=== PATIENT | female | born 1940 | race African-American/Black ===

== ENCOUNTER 2016-10-27 09:59 | Inpatient (IN) | payer MEDICARE, MEDICAID ==
[2016-10-27] MEDS ORDERED: NORMAL SALINE 1000 ML 1,000 ML IV ONE ×2 (10:10→11:15)
[2016-10-27 10:38] LABS: ABSOLUTE BASOPHILS # (AUTO) 0.1 10^3/uL (0.0-0.2); ABSOLUTE EOSINOPHILS # (AUTO) 0.1 10^3/uL (0.0-0.6); ABSOLUTE LYMPHOCYTES (AUTO) 1.6 10^3/uL (0.5-4.7); ABSOLUTE MONOCYTES (AUTO) 0.6 10^3/uL (0.1-1.4); ABSOLUTE NEUT (AUTO) 6.3 10^3/uL (1.7-8.2); BASOPHILS % (AUTO) 0.7 % (0-2); EOSINOPHILS % (AUTO) 1.7 % (0-6); HEMATOCRIT 37.9 % (36.0-47.0); HEMOGLOBIN 11.3 g/dL (12.0-15.5); MEAN CORPUSCULAR HEMOGLOBIN 27.4 pg (27.0-33.4); MEAN CORPUSCULAR HGB CONC 29.9 g/dL (32.0-36.0); MEAN CORPUSCULAR VOLUME 92 fl (80-97); MONOCYTES % (AUTO) 6.5 % (3-13); RED BLOOD COUNT 4.13 10^6/uL (3.72-5.28); RED CELL DISTRIBUTION WIDTH 17.9 % (11.5-14.0); SEGMENTED NEUTROPHILS % (AUTO) 73.1 % (42-78); VENOUS BLOOD BASE EXCESS 2.7 mmol/L; VENOUS BLOOD PCO2 28.5 mmHg (35-63); VENOUS BLOOD PH 7.54 (7.30-7.42); WHITE BLOOD COUNT 8.7 10^3/uL (4.0-10.5)
--- NOTE | 2016-10-27 10:42 | ER Document Report ---
ED General - General Stated Complaint: CONGESTION TRAVEL OUTSIDE OF THE [place] IN LAST 30 DAYS: No - HPI Patient complains to provider of: fever tachypnea Notes: Patient coming in for evaluation of fever tachypnea and congestion. According to EMS patient had been congested for approximately 4-5 days. [facility] noted a low-grade fever temperature of 100 prior to arrival patient was given Tylenol to take 2. Of note patient is a DNR/DNI. Patient is not accompanied by family only EMS history of present illness is limited due to these Patient with a history of dementia nonverbal patient does have a low blood pressure and tachycardia but is tachypnea. - Related Data Allergies/Adverse Reactions: No Known Allergies Allergy (Verified 07/28/16 19:26) Home Medications: Current Home Medications Albuterol Sulfate [Ventolin HFA MDI 18 GM] 2 puff IH Q4HP PRN 10/27/16 [History] Carvedilol [Coreg 25 mg Tablet] 25 mg PEG Q12 10/27/16 [History] Folic Acid [Folvite 1 mg Tablet] 1 mg PEG DAILY 10/27/16 [History] Ipratropium/Albuterol Sulfate [Duoneb 3 ml Ampul] 1 vial IH RTQ4HP PRN 10/27/16 [History] Mirtazapine [Remeron 15 mg Tablet] 15 mg PEG QHS 10/27/16 [History] Risperidone 2 mg PEG DAILY 10/27/16 [History] Past Medical History - Social History Smoking Status: Unknown if Ever Smoked Family History: None, Reviewed & Not Pertinent - Past Medical History Cardiac Medical History: Reports: Hx Hypertension Pulmonary Medical History: Reports: Hx COPD Neurological Medical History: Denies: Hx Seizures Musculoskeltal Medical History: Reports Hx Arthritis - OA Psychiatric Medical History: Reports: Hx Bipolar Disorder, Hx Dementia Denies: Hx Depression Past Surgical History: Reports: Hx Abdominal Surgery - PEG tube. Denies: Hx Hysterectomy - Immunizations Immunizations up to date: Yes Hx Diphtheria, Pertussis, Tetanus Vaccination: No Hx Pneumococcal Vaccination: 01/21/14 Review of Systems - Review of Systems -: Yes ROS unobtainable due to patient's medical condition - Dementia Physical Exam - Vital signs Vitals: Resp Pulse Ox 42 H 96 10/27/16 10:09 10/27/16 10:09 Interpretation: Tachypneic, Febrile - General General appearance: Appears well, Alert - HEENT Head: Normocephalic, Atraumatic Eyes: Normal Pupils: PERRL - Respiratory Respiratory status: Tachypnea Chest status: Nontender Breath sounds: Normal Chest palpation: Normal - Cardiovascular Rhythm: Regular Heart sounds: Normal auscultation Murmur: No - Abdominal Inspection: Normal Distension: No distension Bowel sounds: Normal Tenderness: Nontender Organomegaly: No organomegaly - Back Back: Normal, Nontender - Extremities General upper extremity: Normal inspection, Nontender, Normal color, Normal ROM , Normal temperature General lower extremity: Normal inspection, Nontender, Normal color, Normal ROM , Normal temperature, Normal weight bearing. No: Benny's sign - Neurological Neuro grossly intact: Yes - Psychological Associated symptoms: Normal affect, Normal mood - Skin Skin Temperature: Warm Skin Moisture: Dry Skin Color: Normal Course - Re-evaluation Re-evalutation: 10/27/16 13:24 Patient although tachypnea shows no signs of respiratory distress. VBG shows signs consistent with hyperventilation. Other than fever and UTI no other critical etiology seen. Patient is dehydrated with hypernatremia again although not as severe as last admission. Discussed with PCP Dr. Singer. Will admit to the medical floor for rehydration IV antibiotics. Cultures performed and sent. - Vital Signs Vital signs: Temp Pulse Resp BP Pulse Ox 100.5 F H 35 H 93/61 L 99 10/27/16 10:30 10/27/16 12:01 10/27/16 12:01 10/27/16 11:01 - Laboratory Result Diagrams: 10/27/16 10:20 10/27/16 10:20 Laboratory results interpreted by me: 10/27/16 10/27/16 10/27/16 10:20 10:20 10:20 Hgb 11.3 L MCHC 29.9 L RDW 17.9 H VBG pH 7.54 H VBG pCO2 28.5 L Sodium 157.1 H Chloride 119 H BUN 30 H Glucose 111 H Alkaline Phosphatase 147 H Urine Blood Ur Leukocyte Esterase Urine Ascorbic Acid 10/27/16 10:52 Hgb MCHC RDW VBG pH VBG pCO2 Sodium Chloride BUN Glucose Alkaline Phosphatase Urine Blood SMALL H Ur Leukocyte Esterase LARGE H Urine Ascorbic Acid 40 H Critical Care Note - Critical Care Note Total time excluding time spent on procedures (mins): 35 Comments: Multiple evaluations for tachypnea and concerning laboratory values. Discharge - Discharge Clinical Impression: Hypernatremia, Dehydration, SIRS (systemic inflammatory response syndrome), DNR (do not resuscitate) Urinary tract infection Qualifiers: Urinary tract infection type: acute cystitis Hematuria presence: without hematuria Qualified Code(s): N30.00 - Acute cystitis without hematuria Dementia Qualifiers: Dementia type: unspecified type Dementia behavioral disturbance: with behavioral disturbance Qualified Code(s): F03.91 - Unspecified dementia with behavioral disturbance Fever Qualifiers: Fever type: unspecified Qualified Code(s): R50.9 - Fever, unspecified Condition: Fair Disposition: ADMITTED INPATIENT [facility] Unit Admitted: Medical Floor
[2016-10-27 10:43] LABS: PROTHROMBIN TIME 14.4 SEC (11.4-15.4)
[2016-10-27 10:59] LABS: ALANINE AMINOTRANSFERASE 31 U/L (9-52); ALBUMIN 3.5 g/dL (3.5-5.0); ALKALINE PHOSPHATASE 147 U/L (38-126); ANION GAP 12 (5-19); ASPARTATE AMINO TRANSFERASE 31 U/L (14-36); BILIRUBIN,TOTAL 0.5 mg/dL (0.2-1.3); BLOOD UREA NITROGEN 30 mg/dL (7-20); CALCIUM 9.3 mg/dL (8.4-10.2); CARBON DIOXIDE 26 mmol/L (22-30); CHLORIDE 119 mmol/L (98-107); GLUCOSE 111 mg/dL (75-110); POTASSIUM 4.4 mmol/L (3.6-5.0); SODIUM 157.1 mmol/L (137-145); TOTAL PROTEIN 7.3 g/dL (6.3-8.2)
[2016-10-27 11:22] LABS: APPEARANCE,URINE CLOUDY; BILIRUBIN,URINE NEGATIVE (NEGATIVE); GLUCOSE, URINE NEGATIVE (NEGATIVE); KETONES,URINE NEGATIVE (NEGATIVE); LEUKOCYTE ESTERASE,URINE LARGE (NEGATIVE); NITRITE,URINE NEGATIVE (NEGATIVE); PROTEIN,URINE NEGATIVE (NEGATIVE); URINE SPECIFIC GRAVITY 1.016; UROBILINOGEN,URINE NEGATIVE mg/dL (<2.0)
[2016-10-27] MEDS ORDERED: ERTAPENEM SODIUM INJ 1 GM VIAL IV ONE (11:25)
[2016-10-27] MEDS ORDERED: ALBUTEROL SULFATE HFA (90 MCG/PUFF) 8 GM MDI (1 MDI/ER DISP) IH PRN (17:55)
[2016-10-27] MEDS ORDERED: FOLIC ACID 1 MG TABLET PEG ONE (18:15)
[2016-10-27] MEDS ORDERED: RISPERIDONE 1 MG TABLET PEG ONE (18:15)
[2016-10-27] MEDS ORDERED: MIRTAZAPINE 15 MG TABLET PEG ONE (18:15)
[2016-10-27 18:39] LABS: HEMATOCRIT 32.5 % (36.0-47.0); HEMOGLOBIN 10.4 g/dL (12.0-15.5); HGB HCT DIFFERENCE -1.3; MEAN CORPUSCULAR HEMOGLOBIN 28.9 pg (27.0-33.4); MEAN CORPUSCULAR HGB CONC 32.1 g/dL (32.0-36.0); MEAN CORPUSCULAR VOLUME 90 fl (80-97); RED BLOOD COUNT 3.61 10^6/uL (3.72-5.28); RED CELL DISTRIBUTION WIDTH 17.6 % (11.5-14.0); WHITE BLOOD COUNT 7.7 10^3/uL (4.0-10.5)
[2016-10-27 18:57] LABS: CREATININE RESULT 0.68 mg/dL (0.52-1.25)
--- NOTE | 2016-10-27 21:36 | EKG REPORT ---
SEVERITY:- ABNORMAL ECG - SINUS RHYTHM LEFT ANTERIOR FASCICULAR BLOCK ABNORMAL T, CONSIDER ISCHEMIA, DIFFUSE LEADS : Confirmed by: Jessica Wagoner 27-Oct-2016 21:35:48
[2016-10-27] MEDS: MIRTAZAPINE 15 MG TABLET PEG SCH (22:21)
[2016-10-27] MEDS: CARVEDILOL 12.5 MG TABLET PEG SCH (22:37)
[2016-10-28] MEDS ORDERED: ALBUTEROL SULFATE HFA (90 MCG/PUFF) 200 PUFF/8.5 GM MDI IH PRN (08:06)
[2016-10-28] MEDS: ENOXAPARIN SODIUM INJ 40 MG/0.4 ML DISP.SYRIN SUBCUT SCH (08:43)
[2016-10-28] MEDS: FOLIC ACID 1 MG TABLET PEG SCH (10:26)
[2016-10-28] MEDS: RISPERIDONE 1 MG TABLET PEG SCH (10:26)
[2016-10-28] MEDS: ERTAPENEM SODIUM 1 GM in NORMAL SALINE 50 ML IV SCH (10:27)
[2016-10-28] MEDS: CARVEDILOL 12.5 MG TABLET PEG SCH ×2 (10:28→23:05)
[2016-10-28] MEDS: DEXTROSE 5%-WATER 1000 ML 1,000 ML IV PRN (18:18)
--- NOTE | 2016-10-28 20:55 | PDOC H&P ---
History of Present Illness Admission Date/PCP: 10/27/16 19:19 KAY GATES, History of Present Illness: URSULA RAMOS is a 76 year old female, she has advanced dementia, non-verbal with contracted extremities. [facility] was [facility] because of suspicion for infection, she had tachypnea, fever in emergency room she was evaluated, she was found to have hypernatremia, this serum sodium was 157 and also found to have UTI with pneumonia. Past Medical History Cardiac Medical History: Reports: Hypertension Pulmonary Medical History: Reports: Chronic Obstructive Pulmonary Disease (COPD) Musculoskeltal Medical History: Reports: Arthritis - OA Psychiatric Medical History: Reports: Bipolar Disorder, Dementia Hematology: Reports: Anemia Social History Lives with: [facility] Smoking Status: Former Smoker Frequency of Alcohol Use: None Hx Recreational Drug Use: No Hx Prescription Drug Abuse: No - Advance Directive Resuscitation Status: Do Not Resuscitate Family History Family History: None, Reviewed & Not Pertinent Parental Family History Reviewed: Yes Children Family History Reviewed: Yes Sibling(s) Family History Reviewed.: Yes Medication/Allergy Home Medications: Albuterol Sulfate [Ventolin HFA MDI 18 GM] 2 puff IH Q4HP PRN 10/27/16 Carvedilol [Coreg 25 mg Tablet] 25 mg PEG Q12 10/27/16 Folic Acid [Folvite 1 mg Tablet] 1 mg PEG DAILY 10/27/16 Ipratropium/Albuterol Sulfate [Duoneb 3 ml Ampul] 1 vial IH RTQ4HP PRN 10/27/16 Mirtazapine [Remeron 15 mg Tablet] 15 mg PEG QHS 10/27/16 Risperidone 2 mg PEG DAILY 10/27/16 Allergies/Adverse Reactions: No Known Allergies Allergy (Verified 07/28/16 19:26) Review of Systems ROS unobtainable: Due to mental status, Other - Advanced dementia Physical Exam Vital Signs: Temp Pulse Resp BP Pulse Ox 98.0 F 80 18 114/61 100 10/28/16 17:19 10/28/16 17:19 10/28/16 17:19 10/28/16 17:19 10/28/16 17:19 Intake & Output 10/27/16 10/28/16 10/29/16 06:59 06:59 06:59 Intake Total 50 1031 Balance 50 1031 Weight 73.4 kg 73.4 kg General appearance: PRESENT: no acute distress Head exam: PRESENT: atraumatic, normocephalic Eye exam: PRESENT: PERRLA Ear exam: PRESENT: normal external ear exam Mouth exam: PRESENT: dry mucosa Neck exam: PRESENT: full ROM Cardiovascular exam: PRESENT: irregular rhythm, +S1, +S2 GI/Abdominal exam: PRESENT: soft, other - There is PEG tube Rectal exam: PRESENT: deferred Extremities exam: PRESENT: other - She has contracted extremities Neurological exam: PRESENT: alert, altered Results Impressions: Chest X-Ray 10/27/16 10:09 IMPRESSION: Mild lung changes as above. Suspect chronic abnormalities, see above. Assessment & Plan - Diagnosis (1) Urinary tract infection Qualifiers: Urinary tract infection type: site unspecified Hematuria presence: without hematuria Qualified Code(s): N39.0 - Urinary tract infection, site not specified Is this a current diagnosis for this admission?: YesPlan: The last time she was admitted. She has ESBL Escherichia coli UTI, she will be empirically be treated with intravenous ertapenem (2) Hypernatremia Is this a current diagnosis for this admission?: YesPlan: She has hypernatremia, this is a poor prognostic sign, the mortality rate is about 60%. She be treated with 5% dextrose (4) Pneumonia Qualifiers: Pneumonia type: due to unspecified organism Laterality: unspecified laterality Lung location: unspecified part of lung Qualified Code(s) : J18.9 - Pneumonia, unspecified organism Is this a current diagnosis for this admission?: Yes
--- NOTE | 2016-10-28 20:56 | PDOC PROGRESS REPORT ---
Subjective Progress Note for:: 10/28/16 Subjective:: Patient was seen by the bedside Physical Exam Vital Signs: Temp Pulse Resp BP Pulse Ox 98.0 F 80 18 114/61 100 10/28/16 17:19 10/28/16 17:19 10/28/16 17:19 10/28/16 17:19 10/28/16 17:19 Intake & Output 10/27/16 10/28/16 10/29/16 06:59 06:59 06:59 Intake Total 50 1031 Balance 50 1031 Weight 73.4 kg 73.4 kg General appearance: PRESENT: no acute distress Eye exam: PRESENT: PERRLA Respiratory exam: PRESENT: clear to auscultation sarah Cardiovascular exam: PRESENT: +S1, +S2 Results Impressions: Chest X-Ray 10/27/16 10:09 IMPRESSION: Mild lung changes as above. Suspect chronic abnormalities, see above. Assessment & Plan - Diagnosis (1) Urinary tract infection Qualifiers: Urinary tract infection type: site unspecified Hematuria presence: without hematuria Qualified Code(s): N39.0 - Urinary tract infection, site not specified Is this a current diagnosis for this admission?: Yes (2) Hypernatremia Is this a current diagnosis for this admission?: Yes (4) Pneumonia Qualifiers: Pneumonia type: due to unspecified organism Laterality: unspecified laterality Lung location: unspecified part of lung Qualified Code(s) : J18.9 - Pneumonia, unspecified organism Is this a current diagnosis for this admission?: Yes
[2016-10-28 21:21] LABS: ALANINE AMINOTRANSFERASE 23 U/L (9-52); ALBUMIN 3.2 g/dL (3.5-5.0); ALKALINE PHOSPHATASE 139 U/L (38-126); ANION GAP 10 (5-19); ASPARTATE AMINO TRANSFERASE 23 U/L (14-36); BILIRUBIN,TOTAL 0.5 mg/dL (0.2-1.3); BLOOD UREA NITROGEN 21 mg/dL (7-20); CALCIUM 9.3 mg/dL (8.4-10.2); CARBON DIOXIDE 28 mmol/L (22-30); CHLORIDE 113 mmol/L (98-107); CREATININE RESULT 0.71 mg/dL (0.52-1.25); GLUCOSE 123 mg/dL (75-110); POTASSIUM 4.2 mmol/L (3.6-5.0); SODIUM 150.9 mmol/L (137-145); TOTAL PROTEIN 6.4 g/dL (6.3-8.2)
[2016-10-28] MEDS: MIRTAZAPINE 15 MG TABLET PEG SCH (23:05)
[2016-10-29] MEDS: DEXTROSE 5%-WATER 1000 ML 1,000 ML IV PRN ×2 (04:01→14:26)
[2016-10-29 07:35] LABS: GLUCOSE 113 mg/dL (75-110); POTASSIUM 4.3 mmol/L (3.6-5.0); TOTAL PROTEIN 6.7 g/dL (6.3-8.2)
[2016-10-29 07:36] LABS: ALANINE AMINOTRANSFERASE 21 U/L (9-52); ALKALINE PHOSPHATASE 146 U/L (38-126); ANION GAP 10 (5-19); ASPARTATE AMINO TRANSFERASE 28 U/L (14-36); BILIRUBIN,TOTAL 0.5 mg/dL (0.2-1.3); BLOOD UREA NITROGEN 20 mg/dL (7-20); CALCIUM 8.7 mg/dL (8.4-10.2); CARBON DIOXIDE 29 mmol/L (22-30); CHLORIDE 107 mmol/L (98-107); CREATININE RESULT 0.67 mg/dL (0.52-1.25); SODIUM 146.4 mmol/L (137-145)
[2016-10-29] MEDS: ENOXAPARIN SODIUM INJ 40 MG/0.4 ML DISP.SYRIN SUBCUT SCH (11:40)
[2016-10-29] MEDS: RISPERIDONE 1 MG TABLET PEG SCH (11:41)
[2016-10-29] MEDS: ERTAPENEM SODIUM 1 GM in NORMAL SALINE 50 ML IV SCH (11:41)
[2016-10-29] MEDS: FOLIC ACID 1 MG TABLET PEG SCH (11:42)
[2016-10-29] MEDS: CARVEDILOL 12.5 MG TABLET PEG SCH ×2 (11:46→22:10)
[2016-10-29] MEDS: MIRTAZAPINE 15 MG TABLET PEG SCH (22:20)
[2016-10-30] MEDS: DEXTROSE 5%-WATER 1000 ML 1,000 ML IV PRN ×3 (02:37→22:55)
[2016-10-30 07:49] LABS: BLOOD UREA NITROGEN 15 mg/dL (7-20); CALCIUM 8.6 mg/dL (8.4-10.2); CREATININE RESULT 0.57 mg/dL (0.52-1.25); GLUCOSE 111 mg/dL (75-110)
[2016-10-30 07:50] LABS: ALANINE AMINOTRANSFERASE 24 U/L (9-52); ALBUMIN 2.5 g/dL (3.5-5.0); ALKALINE PHOSPHATASE 132 U/L (38-126); ANION GAP 9 (5-19); ASPARTATE AMINO TRANSFERASE 50 U/L (14-36); BILIRUBIN,TOTAL 0.5 mg/dL (0.2-1.3); CARBON DIOXIDE 28 mmol/L (22-30); CHLORIDE 107 mmol/L (98-107); POTASSIUM 4.5 mmol/L (3.6-5.0); SODIUM 144.4 mmol/L (137-145); TOTAL PROTEIN 5.7 g/dL (6.3-8.2)
[2016-10-30] MEDS: CARVEDILOL 12.5 MG TABLET PEG SCH ×2 (09:45→22:21)
[2016-10-30] MEDS: FOLIC ACID 1 MG TABLET PEG SCH (09:47)
[2016-10-30] MEDS: ENOXAPARIN SODIUM INJ 40 MG/0.4 ML DISP.SYRIN SUBCUT SCH (09:47)
[2016-10-30] MEDS: RISPERIDONE 1 MG TABLET PEG SCH (09:47)
[2016-10-30] MEDS: ERTAPENEM SODIUM 1 GM in NORMAL SALINE 50 ML IV SCH (09:48)
--- NOTE | 2016-10-30 20:00 | PDOC PROGRESS REPORT ---
Subjective Progress Note for:: 10/30/16 Subjective:: Patient is alert and more responsive today, the urine culture grew Enterococcus faecalis sensitive to ampicillin Physical Exam Vital Signs: Temp Pulse Resp BP Pulse Ox 98.9 F 71 18 99/58 L 100 10/30/16 16:00 10/30/16 16:00 10/30/16 16:00 10/30/16 16:00 10/30/16 16:00 Intake & Output 10/29/16 10/30/16 10/31/16 06:59 06:59 06:59 Intake Total 2231 4737 2402 Balance 2231 4737 2402 Weight 75.4 kg General appearance: PRESENT: no acute distress Eye exam: PRESENT: PERRLA Respiratory exam: PRESENT: clear to auscultation sarah Cardiovascular exam: PRESENT: +S1, +S2 GI/Abdominal exam: PRESENT: soft Neurological exam: PRESENT: alert Results Laboratory Results: 10/30/16 06:50 10/30/16 06:50 Sodium 144.4 Potassium 4.5 Chloride 107 Carbon Dioxide 28 Anion Gap 9 BUN 15 Creatinine 0.57 Est GFR ( Amer) > 60 Est GFR (Non-Af Amer) > 60 Glucose 111 H Calcium 8.6 Total Bilirubin 0.5 AST 50 H ALT 24 Alkaline Phosphatase 132 H Total Protein 5.7 L Albumin 2.5 L Impressions: Chest X-Ray 10/27/16 10:09 IMPRESSION: Mild lung changes as above. Suspect chronic abnormalities, see above. Assessment & Plan - Diagnosis (1) Urinary tract infection due to Enterococcus Is this a current diagnosis for this admission?: YesPlan: The urine culture grew enterococcus faecalis, she was empirically started on ertapenem, this to be discontinued and she will be started on Unasyn (2) Hypernatremia Is this a current diagnosis for this admission?: Yes (4) Pneumonia Qualifiers: Pneumonia type: due to unspecified organism Laterality: unspecified laterality Lung location: unspecified part of lung Qualified Code(s) : J18.9 - Pneumonia, unspecified organism Is this a current diagnosis for this admission?: Yes
--- NOTE | 2016-10-30 20:02 | PDOC PROGRESS REPORT ---
Subjective Progress Note for:: 10/29/16 Subjective:: She was admitted because of UTI, she is still stupurous Physical Exam Vital Signs: Temp Pulse Resp BP Pulse Ox 99.2 F 80 22 H 111/50 L 95 10/29/16 16:00 10/29/16 16:00 10/29/16 16:00 10/29/16 16:00 10/29/16 17:20 Intake & Output 10/28/16 10/29/16 10/30/16 06:59 06:59 06:59 Intake Total 50 2231 4105 Balance 50 2231 4105 Weight 73.4 kg 75.4 kg General appearance: PRESENT: no acute distress Eye exam: PRESENT: PERRLA Respiratory exam: PRESENT: clear to auscultation sarah Cardiovascular exam: PRESENT: +S1, +S2 Results Laboratory Results: 10/29/16 06:36 10/28/16 10/29/16 20:54 06:36 Sodium 150.9 H 146.4 H Potassium 4.2 4.3 Chloride 113 H 107 Carbon Dioxide 28 29 Anion Gap 10 10 BUN 21 H 20 Creatinine 0.71 0.67 Est GFR ( Amer) > 60 > 60 Est GFR (Non-Af Amer) > 60 > 60 Glucose 123 H 113 H Calcium 9.3 8.7 Total Bilirubin 0.5 0.5 AST 23 28 ALT 23 21 Alkaline Phosphatase 139 H 146 H Total Protein 6.4 6.7 Albumin 3.2 L 3.0 L Impressions: Chest X-Ray 10/27/16 10:09 IMPRESSION: Mild lung changes as above. Suspect chronic abnormalities, see above. Assessment & Plan - Diagnosis (1) Urinary tract infection Qualifiers: Urinary tract infection type: site unspecified Hematuria presence: without hematuria Qualified Code(s): N39.0 - Urinary tract infection, site not specified Is this a current diagnosis for this admission?: Yes (2) Hypernatremia Is this a current diagnosis for this admission?: Yes (4) Pneumonia Qualifiers: Pneumonia type: due to unspecified organism Laterality: unspecified laterality Lung location: unspecified part of lung Qualified Code(s) : J18.9 - Pneumonia, unspecified organism Is this a current diagnosis for this admission?: Yes
[2016-10-30] MEDS: MIRTAZAPINE 15 MG TABLET PEG SCH (22:55)
[2016-10-30] MEDS: AMPICILLIN SODIUM/SULBACTAM NA 3 GM in NORMAL SALINE 100 ML IV SCH (22:55)
[2016-10-31] MEDS: AMPICILLIN SODIUM/SULBACTAM NA 3 GM in NORMAL SALINE 100 ML IV SCH ×4 (02:56→20:57)
[2016-10-31] MEDS: ENOXAPARIN SODIUM INJ 40 MG/0.4 ML DISP.SYRIN SUBCUT SCH (08:31)
[2016-10-31 08:33] LABS: ALANINE AMINOTRANSFERASE 32 U/L (9-52); ALBUMIN 2.7 g/dL (3.5-5.0); ALKALINE PHOSPHATASE 153 U/L (38-126); ANION GAP 9 (5-19); ASPARTATE AMINO TRANSFERASE 44 U/L (14-36); BILIRUBIN,TOTAL 0.3 mg/dL (0.2-1.3); BLOOD UREA NITROGEN 11 mg/dL (7-20); CALCIUM 8.6 mg/dL (8.4-10.2); CARBON DIOXIDE 30 mmol/L (22-30); CHLORIDE 106 mmol/L (98-107); CREATININE RESULT 0.59 mg/dL (0.52-1.25); GLUCOSE 103 mg/dL (75-110); POTASSIUM 3.9 mmol/L (3.6-5.0); SODIUM 144.8 mmol/L (137-145); TOTAL PROTEIN 6.2 g/dL (6.3-8.2)
[2016-10-31] MEDS: FOLIC ACID 1 MG TABLET PEG SCH (10:55)
[2016-10-31] MEDS: RISPERIDONE 1 MG TABLET PEG SCH (10:55)
[2016-10-31] MEDS: CARVEDILOL 12.5 MG TABLET PEG SCH (10:56)
[2016-10-31] MEDS: DEXTROSE 5%-WATER 1000 ML 1,000 ML IV PRN (12:34)
--- NOTE | 2016-10-31 20:53 | PDOC PROGRESS REPORT ---
Subjective Progress Note for:: 10/31/16 Subjective:: Patient continues to improve on present treatment Physical Exam Vital Signs: Temp Pulse Resp BP Pulse Ox 98.4 F 89 17 104/63 99 10/31/16 12:37 10/31/16 12:37 10/31/16 12:37 10/31/16 12:37 10/31/16 12:37 Intake & Output 10/30/16 10/31/16 11/01/16 06:59 06:59 06:59 Intake Total 4737 4202 Balance 4737 4202 Weight 75.4 kg Eye exam: PRESENT: PERRLA Respiratory exam: PRESENT: clear to auscultation sarah Cardiovascular exam: PRESENT: +S1, +S2 Results Laboratory Results: 10/31/16 07:50 10/31/16 07:50 Sodium 144.8 Potassium 3.9 Chloride 106 Carbon Dioxide 30 Anion Gap 9 BUN 11 Creatinine 0.59 Est GFR ( Amer) > 60 Est GFR (Non-Af Amer) > 60 Glucose 103 Calcium 8.6 Total Bilirubin 0.3 AST 44 H ALT 32 Alkaline Phosphatase 153 H Total Protein 6.2 L Albumin 2.7 L Impressions: Chest X-Ray 10/27/16 10:09 IMPRESSION: Mild lung changes as above. Suspect chronic abnormalities, see above. Assessment & Plan - Diagnosis (1) Urinary tract infection Qualifiers: Urinary tract infection type: site unspecified Hematuria presence: without hematuria Qualified Code(s): N39.0 - Urinary tract infection, site not specified Is this a current diagnosis for this admission?: Yes (2) Hypernatremia Is this a current diagnosis for this admission?: YesPlan: Improving (3) Advanced dementia Is this a current diagnosis for this admission?: Yes (4) Pneumonia Qualifiers: Pneumonia type: due to unspecified organism Laterality: unspecified laterality Lung location: unspecified part of lung Qualified Code(s) : J18.9 - Pneumonia, unspecified organism Is this a current diagnosis for this admission?: Yes
[2016-11-01] MEDS: CARVEDILOL 12.5 MG TABLET PEG SCH ×2 (00:07→10:11)
[2016-11-01] MEDS: MIRTAZAPINE 15 MG TABLET PEG SCH (00:07)
[2016-11-01] MEDS: AMPICILLIN SODIUM/SULBACTAM NA 3 GM in NORMAL SALINE 100 ML IV SCH ×2 (03:44→10:16)
[2016-11-01 08:14] LABS: ALANINE AMINOTRANSFERASE 42 U/L (9-52); ALBUMIN 2.7 g/dL (3.5-5.0); ALKALINE PHOSPHATASE 155 U/L (38-126); ANION GAP 10 (5-19); ASPARTATE AMINO TRANSFERASE 39 U/L (14-36); BILIRUBIN,TOTAL 0.3 mg/dL (0.2-1.3); BLOOD UREA NITROGEN 12 mg/dL (7-20); CALCIUM 8.6 mg/dL (8.4-10.2); CARBON DIOXIDE 29 mmol/L (22-30); CHLORIDE 103 mmol/L (98-107); GLUCOSE 106 mg/dL (75-110); SODIUM 142.1 mmol/L (137-145); TOTAL PROTEIN 6.1 g/dL (6.3-8.2)
[2016-11-01] MEDS: ENOXAPARIN SODIUM INJ 40 MG/0.4 ML DISP.SYRIN SUBCUT SCH (10:15)
[2016-11-01] MEDS: RISPERIDONE 1 MG TABLET PEG SCH (10:15)
[2016-11-01] MEDS: FOLIC ACID 1 MG TABLET PEG SCH (10:15)
[2016-11-01] MEDS: AMPICILLIN TRIHYD PEG SCH ×2 (12:00→17:00)
[2016-11-01] MEDS: DEXTROSE 5%-WATER 1000 ML 1,000 ML IV PRN (15:39)
--- NOTE | 2016-11-01 22:33 | PDOC PROGRESS REPORT ---
Subjective Progress Note for:: 11/01/16 Subjective:: There is no new complaint. Patient is more alert Physical Exam Vital Signs: Temp Pulse Resp BP Pulse Ox 99.4 F 109 H 15 100/57 L 99 11/01/16 19:22 11/01/16 19:22 11/01/16 19:22 11/01/16 19:22 11/01/16 19:22 Intake & Output 10/31/16 11/01/16 11/02/16 06:59 06:59 06:59 Intake Total 4202 4026 3429 Balance 4202 4026 3429 Weight 75.4 kg 75.4 kg General appearance: PRESENT: no acute distress Eye exam: PRESENT: PERRLA Respiratory exam: PRESENT: clear to auscultation sarah Cardiovascular exam: PRESENT: +S1, +S2 GI/Abdominal exam: PRESENT: firm Neurological exam: PRESENT: alert Results Laboratory Results: 11/01/16 07:21 11/01/16 07:21 Sodium 142.1 Potassium 4.0 Chloride 103 Carbon Dioxide 29 Anion Gap 10 BUN 12 Creatinine 0.60 Est GFR ( Amer) > 60 Est GFR (Non-Af Amer) > 60 Glucose 106 Calcium 8.6 Total Bilirubin 0.3 AST 39 H ALT 42 Alkaline Phosphatase 155 H Total Protein 6.1 L Albumin 2.7 L Impressions: Chest X-Ray 10/27/16 10:09 IMPRESSION: Mild lung changes as above. Suspect chronic abnormalities, see above. Assessment & Plan - Diagnosis (1) Urinary tract infection Qualifiers: Urinary tract infection type: site unspecified Hematuria presence: without hematuria Qualified Code(s): N39.0 - Urinary tract infection, site not specified Is this a current diagnosis for this admission?: Yes (2) Hypernatremia Is this a current diagnosis for this admission?: Yes (3) Advanced dementia Is this a current diagnosis for this admission?: Yes (4) Pneumonia Qualifiers: Pneumonia type: due to unspecified organism Laterality: unspecified laterality Lung location: unspecified part of lung Qualified Code(s) : J18.9 - Pneumonia, unspecified organism Is this a current diagnosis for this admission?: Yes
[2016-11-02] MEDS: MIRTAZAPINE 15 MG TABLET PEG SCH ×2 (00:26→23:40)
[2016-11-02] MEDS: CARVEDILOL 12.5 MG TABLET PEG SCH ×3 (00:26→23:40)
[2016-11-02] MEDS: AMPICILLIN TRIHYD PEG SCH ×4 (01:30→17:20)
[2016-11-02 09:06] LABS: ALANINE AMINOTRANSFERASE 39 U/L (9-52); ALBUMIN 2.6 g/dL (3.5-5.0); ALKALINE PHOSPHATASE 133 U/L (38-126); ANION GAP 9 (5-19); ASPARTATE AMINO TRANSFERASE 39 U/L (14-36); BILIRUBIN,TOTAL 0.3 mg/dL (0.2-1.3); BLOOD UREA NITROGEN 12 mg/dL (7-20); CALCIUM 8.6 mg/dL (8.4-10.2); CARBON DIOXIDE 29 mmol/L (22-30); CHLORIDE 103 mmol/L (98-107); CREATININE RESULT 0.61 mg/dL (0.52-1.25); GLUCOSE 122 mg/dL (75-110); POTASSIUM 4.1 mmol/L (3.6-5.0); SODIUM 141.4 mmol/L (137-145); TOTAL PROTEIN 5.8 g/dL (6.3-8.2)
[2016-11-02] MEDS: ENOXAPARIN SODIUM INJ 40 MG/0.4 ML DISP.SYRIN SUBCUT SCH (10:55)
[2016-11-02] MEDS: FOLIC ACID 1 MG TABLET PEG SCH (10:57)
[2016-11-02] MEDS: RISPERIDONE 1 MG TABLET PEG SCH (10:58)
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
[2016-11-02] MEDS: DEXTROSE 5%-WATER 1000 ML 1,000 ML IV PRN (14:10)
[2016-11-03] MEDS: AMPICILLIN TRIHYD PEG SCH ×4 (00:55→18:05)
[2016-11-03 07:41] LABS: ALANINE AMINOTRANSFERASE 43 U/L (9-52); ALBUMIN 2.7 g/dL (3.5-5.0); ALKALINE PHOSPHATASE 138 U/L (38-126); ANION GAP 9 (5-19); ASPARTATE AMINO TRANSFERASE 39 U/L (14-36); BILIRUBIN,TOTAL 0.3 mg/dL (0.2-1.3); BLOOD UREA NITROGEN 11 mg/dL (7-20); CALCIUM 8.5 mg/dL (8.4-10.2); CARBON DIOXIDE 26 mmol/L (22-30); CHLORIDE 103 mmol/L (98-107); CREATININE RESULT 0.56 mg/dL (0.52-1.25); GLUCOSE 101 mg/dL (75-110); POTASSIUM 4.5 mmol/L (3.6-5.0); SODIUM 138.2 mmol/L (137-145); TOTAL PROTEIN 6.2 g/dL (6.3-8.2)
--- NOTE | 2016-11-03 11:15 | PDOC PROGRESS REPORT ---
Subjective Progress Note for:: 11/03/16 Subjective:: No reported fever or chills. No observed or reported chest pain or difficulty with breathing. Patient is tolerating enteral tube feeding with minimal oral intake. Physical Exam Vital Signs: Temp Pulse Resp BP Pulse Ox 98.3 F 79 18 122/55 L 100 11/03/16 08:00 11/03/16 08:00 11/03/16 08:00 11/03/16 08:00 11/03/16 08:00 Intake & Output 11/02/16 11/03/16 11/04/16 06:59 06:59 06:59 Intake Total 4654 2425 Balance 4654 2425 Weight 75.4 kg 75.4 kg General appearance: PRESENT: no acute distress Head exam: PRESENT: atraumatic, normocephalic Eye exam: PRESENT: conjunctiva pink, EOMI, PERRLA Respiratory exam: PRESENT: decreased breath sounds - at lung bases. ABSENT: accessory muscle use, chest wall tenderness, clear to auscultation sarah, crackles , prolonged expiratory phas, rales, retraction, rhonchi, stridor, symmetrical, tachypnea, unlabored, wheezes, other Cardiovascular exam: PRESENT: RRR. ABSENT: diastolic murmur, rubs, systolic murmur GI/Abdominal exam: PRESENT: normal bowel sounds, soft, other - PEG site satisfactory. ABSENT: distended, guarding, mass, organolmegaly, rebound, tenderness Musculoskeletal exam: PRESENT: deformity - arthritis and contractures Neurological exam: PRESENT: alert, awake - and appropriate in simple responses Skin exam: PRESENT: dry, warm Results Laboratory Results: 11/03/16 06:55 11/03/16 06:55 Sodium 138.2 Potassium 4.5 Chloride 103 Carbon Dioxide 26 Anion Gap 9 BUN 11 Creatinine 0.56 Est GFR ( Amer) > 60 Est GFR (Non-Af Amer) > 60 Glucose 101 Calcium 8.5 Total Bilirubin 0.3 AST 39 H ALT 43 Alkaline Phosphatase 138 H Total Protein 6.2 L Albumin 2.7 L Impressions: Chest X-Ray 10/27/16 10:09 IMPRESSION: Mild lung changes as above. Suspect chronic abnormalities, see above. Assessment & Plan - Diagnosis (1) Dementia Qualifiers: Dementia type: unspecified type Dementia behavioral disturbance: without behavioral disturbance Qualified Code(s): F03.90 - Unspecified dementia without behavioral disturbance (3) Pneumonia Qualifiers: Pneumonia type: due to unspecified organism Laterality: unspecified laterality Lung location: unspecified part of lung Qualified Code(s) : J18.9 - Pneumonia, unspecified organism Is this a current diagnosis for this admission?: Yes (4) Urinary tract infection Qualifiers: Urinary tract infection type: site unspecified Hematuria presence: without hematuria Qualified Code(s): N39.0 - Urinary tract infection, site not specified Is this a current diagnosis for this admission?: Yes - Time Time Spent with patient: 25-34 minutes Medications reviewed and adjusted accordingly: Yes Anticipated discharge: SNF Within: Other - Inpatient Certification Based on my medical assessment, after consideration of the patient's comorbidities, presenting symptoms, or acuity I expect that the services needed warrant INPATIENT care.: Yes I certify that my determination is in accordance with my understanding of Medicare's requirements for reasonable and necessary INPATIENT services [42 CFR 412.3e].: Yes Medical Necessity: Need For IV Fluids, Need For Continuous Telemetry Monitoring , Need for IV Antibiotics, Risk of Complication if Not Cared For in Hospital Post Hospital Care: D/C Bulk Sealer Documentation - Plan Summary Plan Summary: see covering physician orders
[2016-11-03] MEDS: DEXTROSE 5%-WATER 1000 ML 1,000 ML IV PRN ×2 (12:35→23:09)
[2016-11-03] MEDS: FOLIC ACID 1 MG TABLET PEG SCH (12:41)
[2016-11-03] MEDS: CARVEDILOL 12.5 MG TABLET PEG SCH ×2 (12:42→23:10)
[2016-11-03] MEDS: ENOXAPARIN SODIUM INJ 40 MG/0.4 ML DISP.SYRIN SUBCUT SCH (12:42)
[2016-11-03] MEDS: RISPERIDONE 1 MG TABLET PEG SCH (12:43)
[2016-11-03] MEDS: MIRTAZAPINE 15 MG TABLET PEG SCH (23:09)
[2016-11-04] MEDS: AMPICILLIN TRIHYD PEG SCH ×3 (01:00→17:50)
[2016-11-04 07:38] LABS: ALANINE AMINOTRANSFERASE 35 U/L (9-52); ALBUMIN 2.3 g/dL (3.5-5.0); ALKALINE PHOSPHATASE 123 U/L (38-126); ANION GAP 8 (5-19); ASPARTATE AMINO TRANSFERASE 26 U/L (14-36); BILIRUBIN,TOTAL 0.2 mg/dL (0.2-1.3); BLOOD UREA NITROGEN 11 mg/dL (7-20); CALCIUM 8.4 mg/dL (8.4-10.2); CARBON DIOXIDE 27 mmol/L (22-30); CHLORIDE 104 mmol/L (98-107); CREATININE RESULT 0.57 mg/dL (0.52-1.25); GLUCOSE 100 mg/dL (75-110); SODIUM 139.3 mmol/L (137-145); TOTAL PROTEIN 5.7 g/dL (6.3-8.2)
[2016-11-04] MEDS: ENOXAPARIN SODIUM INJ 40 MG/0.4 ML DISP.SYRIN SUBCUT SCH (08:21)
[2016-11-04] MEDS: DEXTROSE 5%-WATER 1000 ML 1,000 ML IV PRN (09:56)
[2016-11-04] MEDS: RISPERIDONE 1 MG TABLET PEG SCH (09:58)
[2016-11-04] MEDS: FOLIC ACID 1 MG TABLET PEG SCH (09:58)
[2016-11-04] MEDS: CARVEDILOL 12.5 MG TABLET PEG SCH ×2 (09:59→21:18)
--- NOTE | 2016-11-04 15:27 | PDOC DISCHARGE SUMMARY ---
General - Admit/Disc Date/PCP Admission Date/Primary Care Provider: 10/27/16 19:19 KAY GATES, Discharge Date: 11/04/16 - Discharge Diagnosis (1) Urinary tract infection due to Enterococcus Is this a current diagnosis for this admission?: Yes (2) Hypernatremia Is this a current diagnosis for this admission?: Yes (3) Advanced dementia Is this a current diagnosis for this admission?: Yes (4) Metabolic encephalopathy Is this a current diagnosis for this admission?: Yes - Additional Information Resuscitation Status: Do Not Resuscitate Home Medications: Albuterol Sulfate [Ventolin HFA MDI 18 GM] 2 puff IH Q4HP PRN 10/27/16 Carvedilol [Coreg 25 mg Tablet] 25 mg PEG Q12 10/27/16 Folic Acid [Folvite 1 mg Tablet] 1 mg PEG DAILY 10/27/16 Ipratropium/Albuterol Sulfate [Duoneb 3 ml Ampul] 1 vial IH RTQ4HP PRN 10/27/16 Mirtazapine [Remeron 15 mg Tablet] 15 mg PEG QHS 10/27/16 Risperidone 2 mg PEG DAILY 10/27/16 History of Present Illness History of Present Illness: URSULA RAMOS is a 76 year old female, she has advanced dementia, non-verbal with contracted extremities. She was referred from the senior care to the emergency room because of suspicion for infection, she had tachypnea, fever in emergency room she was evaluated, she was found to have hypernatremia, this serum sodium was 157 and also found to have UTI with pneumonia. Hospital Course Hospital Course: Patient was admitted when she presented with metabolic encephalopathy due to hypernatremia and urinary tract infection from Enterococcus faecalis. She was initially treated empirically with intravenous ertapenem before urine culture came back, the antibiotic was changed from ertapenem to Unasyn,When urine culture came back growing Enterococcus faecalis. She had severe hyponatremia. This was treated with free water in 5% dextrose, initially on admission she was stuporous, but with slow correction of the serum sodium patient regain for alertness and became more responsive. Physical Exam Vital Signs: Temp Pulse Resp BP Pulse Ox 98.0 F 89 16 98/56 L 100 11/04/16 12:00 11/04/16 12:00 11/04/16 12:00 11/04/16 12:00 11/04/16 12:00 Intake & Output 11/03/16 11/04/16 11/05/16 06:59 06:59 06:59 Intake Total 2425 2400 1163 Balance 2425 2400 1163 Weight 75.4 kg 73.3 kg General appearance: PRESENT: no acute distress Respiratory exam: PRESENT: clear to auscultation sarah Cardiovascular exam: PRESENT: +S1, +S2 GI/Abdominal exam: PRESENT: soft Musculoskeletal exam: PRESENT: other - Contracted extremities Neurological exam: PRESENT: alert Results Laboratory Results: 11/04/16 06:56 11/04/16 06:56 Sodium 139.3 Potassium 4.0 Chloride 104 Carbon Dioxide 27 Anion Gap 8 BUN 11 Creatinine 0.57 Est GFR ( Amer) > 60 Est GFR (Non-Af Amer) > 60 Glucose 100 Calcium 8.4 Total Bilirubin 0.2 AST 26 ALT 35 Alkaline Phosphatase 123 Total Protein 5.7 L Albumin 2.3 L Impressions: Chest X-Ray 10/27/16 10:09 IMPRESSION: Mild lung changes as above. Suspect chronic abnormalities, see above.
--- NOTE | 2016-11-04 15:42 | PDOC TRANSFER SUMMARY ---
General - Admit/Disc Date/PCP Admission Date/Primary Care Provider: 10/27/16 19:19 KAY GATES, Discharge Date: 11/04/16 - Discharge Diagnosis (1) Urinary tract infection due to Enterococcus Is this a current diagnosis for this admission?: Yes (2) Hypernatremia Is this a current diagnosis for this admission?: Yes (3) Advanced dementia Is this a current diagnosis for this admission?: Yes (4) Metabolic encephalopathy Is this a current diagnosis for this admission?: Yes - Additional Information Resuscitation Status: Do Not Resuscitate Home Medications: Albuterol Sulfate [Ventolin HFA MDI 18 GM] 2 puff IH Q4HP PRN 10/27/16 Carvedilol [Coreg 25 mg Tablet] 25 mg PEG Q12 10/27/16 Folic Acid [Folvite 1 mg Tablet] 1 mg PEG DAILY 10/27/16 Ipratropium/Albuterol Sulfate [Duoneb 3 ml Ampul] 1 vial IH RTQ4HP PRN 10/27/16 Mirtazapine [Remeron 15 mg Tablet] 15 mg PEG QHS 10/27/16 Risperidone 2 mg PEG DAILY 10/27/16 History of Present Illness Admission Date/PCP: 10/27/16 19:19 KAY GATES, History of Present Illness: URSULA RAMOS is a 76 year old female, she has advanced dementia, non-verbal with contracted extremities. [facility] was [facility] to [facility] room because of suspicion for infection, she had tachypnea, fever in emergency room she was evaluated, she was found to have hypernatremia, this serum sodium was 157 and also found to have UTI with pneumonia. Hospital Course Hospital Course: She was admitted when she presented with metabolic encephalopathy due to hypernatremia and urinary tract infection from Enterococcus faecalis. She was initially treated empirically with intravenous ertapenem before culture of the urine result came back, the antibiotic was changed from intravenous ertapenem to intravenous Unasyn. When the urine culture came back growing enterococcus faecalis. She had severe hypernatremia and this was treated with free water in 5% dextrose, initially on admission she was stuporous, but with slow correction of the serum sodium patient regained full consciousness and alertness Physical Exam Vital Signs: Temp Pulse Resp BP Pulse Ox 98.0 F 89 16 98/56 L 100 11/04/16 12:00 11/04/16 12:00 11/04/16 12:00 11/04/16 12:00 11/04/16 12:00 Intake & Output 11/03/16 11/04/16 11/05/16 06:59 06:59 06:59 Intake Total 2425 2400 1163 Balance 2425 2400 1163 Weight 75.4 kg 73.3 kg General appearance: PRESENT: no acute distress, cooperative Eye exam: PRESENT: PERRLA Respiratory exam: PRESENT: clear to auscultation sarah Cardiovascular exam: PRESENT: +S1, +S2 GI/Abdominal exam: PRESENT: soft Musculoskeletal exam: PRESENT: other - Contracted extremities Neurological exam: PRESENT: alert Results Laboratory Results: 11/04/16 06:56 11/04/16 06:56 Sodium 139.3 Potassium 4.0 Chloride 104 Carbon Dioxide 27 Anion Gap 8 BUN 11 Creatinine 0.57 Est GFR ( Amer) > 60 Est GFR (Non-Af Amer) > 60 Glucose 100 Calcium 8.4 Total Bilirubin 0.2 AST 26 ALT 35 Alkaline Phosphatase 123 Total Protein 5.7 L Albumin 2.3 L Impressions: Chest X-Ray 10/27/16 10:09 IMPRESSION: Mild lung changes as above. Suspect chronic abnormalities, see above.
[2016-11-04 20:29] VITALS: BP 123/63
[2016-11-04] MEDS: MIRTAZAPINE 15 MG TABLET PEG SCH (21:18)
== END 2016-11-04 22:51 | DRG 689 ==
LOC: ER 09:59 → UNDOADMIN 11:55 → EH 11:55 → 5 17:45 → EH 17:45 → 5 19:19
PROVIDERS: ADMIT Internal Medicine; ATTEND Internal Medicine
DX: N30.00 Acute cystitis without hematuria (principal); G93.41 Metabolic encephalopathy; J18.9 Pneumonia, unspecified organism; E87.0 Hyperosmolality and hypernatremia; B95.2 Enterococcus as the cause of diseases classified elsewhere; F03.90 Unspecified dementia, unspecified severity, without behavioral disturbance, psychotic disturbance, mood disturbance, and anxiety; I10 Essential (primary) hypertension; Z66 Do not resuscitate; J44.9 Chronic obstructive pulmonary disease, unspecified; M19.90 Unspecified osteoarthritis, unspecified site; F31.9 Bipolar disorder, unspecified; D64.9 Anemia, unspecified; Z87.891 Personal history of nicotine dependence; Z79.899 Other long term (current) drug therapy; Z93.1 Gastrostomy status
CPT/HCPCS: 36415; 51701; 71010; 80053; 81001; 82565; 82803; 82962; 83605; 85025; 85027; 85610; 85730; 87040; 87086; 87088; 87186; 87804; 93005; 93010; 96360; 96361; 99291; J0295; J1335; J1650; J3490; J7030; J7060

== ENCOUNTER 2017-06-11 13:09 | Emergency (ER) | payer MEDICARE, MEDICAID ==
--- NOTE | 2017-06-11 13:58 | ER Document Report ---
ED General - General Mode of Arrival: Medic Information source: Relative - daughter TRAVEL OUTSIDE OF THE [place] IN LAST 30 DAYS: No - HPI Associated symptoms: Other - see above <JEANNETTE SNOW - Last Filed: 06/11/17 13:53> <DENNISE EDWARDS - Last Filed: 06/11/17 15:54> - General Chief Complaint: Skin Problem Stated Complaint: RIGHT HAND SWELLING Time Seen by Provider: 06/11/17 13:27 Notes: Patient is a 77 year old female who presents to the ED via EMS from [facility] with complaints of swelling and blisters to her right hand. Patients daughter states that the blisters on her hand were not present yesterday. Patient is bed ridden, has contracted lower extremities and is non verbal. History obtained from daughter. (ANNIE SNOWANDRA) - Related Data Allergies/Adverse Reactions: No Known Allergies Allergy (Verified 06/11/17 13:38) Past Medical History - General Information source: Relative - Social History Smoking Status: Unknown if Ever Smoked Chew tobacco use (# tins/day): No Frequency of alcohol use: None Drug Abuse: None Family History: None, Reviewed & Not Pertinent Patient has suicidal ideation: No Patient has homicidal ideation: No - Past Medical History Cardiac Medical History: Reports: Hx Hypertension Pulmonary Medical History: Reports: Hx COPD Neurological Medical History: Denies: Hx Seizures Renal/ Medical History: Denies: Hx Peritoneal Dialysis Musculoskeltal Medical History: Reports Hx Arthritis - OA Psychiatric Medical History: Reports: Hx Bipolar Disorder, Hx Dementia Denies: Hx Depression Past Surgical History: Reports: Hx Abdominal Surgery - PEG tube. Denies: Hx Hysterectomy - Immunizations Immunizations up to date: Yes Hx Diphtheria, Pertussis, Tetanus Vaccination: No Hx Pneumococcal Vaccination: 01/21/14 <JEANNETTE SNOW - Last Filed: 06/11/17 13:53> Review of Systems - Review of Systems Constitutional: No symptoms reported EENT: No symptoms reported Cardiovascular: No symptoms reported Respiratory: No symptoms reported Gastrointestinal: No symptoms reported Genitourinary: No symptoms reported Female Genitourinary: No symptoms reported Musculoskeletal: See HPI, Other - right hand swelling and blisters Skin: See HPI, Other - blisters on right hand Hematologic/Lymphatic: No symptoms reported Neurological/Psychological: No symptoms reported <JEANNETTE SNOW - Last Filed: 06/11/17 13:53> Physical Exam - General General appearance: Other - non verbal, advanced dementia, awake - HEENT Head: Normocephalic, Atraumatic Eyes: Normal Extraocular movements intact: Yes Pupils: PERRL - Respiratory Respiratory status: No respiratory distress Breath sounds: Normal - Cardiovascular Rhythm: Regular Heart sounds: Normal auscultation Murmur: No - Back Back: Normal - Extremities General upper extremity: Other - bilateral upper extremities are contracted, see skin exam General lower extremity: Other - lower extremities are contracted up bilaterally - Neurological Cognition: Other - non verbal, advanced dementia, awake - Skin Skin Temperature: Warm Skin Moisture: Dry Skin Color: Normal Skin irregularity: other - blisters along dorsal radial side of [id number] finger , circumfrential blister around proximal right 5th finger, blister along right lateral hand and wrist, large blisters over dorsal radial right hand and wrist with 1 1/2-4cm area that is ripped open, blister over thenar aspect of right palm that is intact <JEANNETTE SNOW - Last Filed: 06/11/17 13:53> Course - Laboratory Result Diagrams: 06/11/17 14:26 06/11/17 14:26 <DENNISE EDWARDS - Last Filed: 06/11/17 15:54> - Laboratory Laboratory results interpreted by me: 06/11/17 06/11/17 06/11/17 14:26 14:26 15:15 MCHC 31.9 L RDW 17.0 H Sodium 149.6 H Chloride 115 H BUN 26 H Glucose 113 H AST 83 H Alkaline Phosphatase 186 H Urine Urobilinogen 2.0 H Ur Leukocyte Esterase LARGE H Urine Ascorbic Acid 40 H Discharge <JEANNETTE SNOW - Last Filed: 06/11/17 13:53> <DENNISE EDWARDS - Last Filed: 06/11/17 15:54> - Discharge Clinical Impression: Acute skin eruption of discoloration, elevations, blisters, Dehydration Urinary tract infection Qualifiers: Urinary tract infection type: site unspecified Hematuria presence: without hematuria Qualified Code(s): N39.0 - Urinary tract infection, site not specified Condition: Stable Disposition: HOME, SELF-CARE Additional Instructions: Increase the amount of water being given through the feeding tube throughout the day and the night. Take the medication as prescribed. Do dressing changes on the right hand blisters and debride as needed on a daily basis. Follow-up with your primary care provider to recheck the hand, or have him refer you to the wound care center. RETURN TO THE EMERGENCY ROOM IF ANY NEW OR WORSENING SYMPTOMS. Prescriptions: Cephalexin Monohydrate [Keflex 250 mg/5 ml Susp] 10 ml PEG TID #200 ml Referrals: JUANI WILEY MD [Primary Care Provider] - Follow up in 3-5 days [facility] Attestation: 06/11/17 15:53 I personally performed the services described in the documentation, reviewed and edited the documentation which was dictated to the scribe in my presence, and it accurately records my words and actions. (DENNISE EDWARDS) [employer] Documentation - Scribe Written by Haroldo:: haroldo Calderon, 06/11/2017, 1354 acting as scribe for :: Eri <JEANNETTE SNOW - Last Filed: 06/11/17 13:53>
[2017-06-11 14:35] LABS: ABSOLUTE EOSINOPHILS # (AUTO) 0.1 10^3/uL (0.0-0.6); ABSOLUTE LYMPHOCYTES (AUTO) 1.6 10^3/uL (0.5-4.7); ABSOLUTE MONOCYTES (AUTO) 0.8 10^3/uL (0.1-1.4); ABSOLUTE NEUT (AUTO) 6.5 10^3/uL (1.7-8.2); BASOPHILS % (AUTO) 0.4 % (0-2); EOSINOPHILS % (AUTO) 1.3 % (0-6); HEMATOCRIT 41.2 % (36.0-47.0); HEMOGLOBIN 13.2 g/dL (12.0-15.5); HGB HCT DIFFERENCE -1.6; LYMPHOCYTES % (AUTO) 17.7 % (13-45); MEAN CORPUSCULAR HEMOGLOBIN 28.8 pg (27.0-33.4); MEAN CORPUSCULAR HGB CONC 31.9 g/dL (32.0-36.0); MEAN CORPUSCULAR VOLUME 90 fl (80-97); MONOCYTES % (AUTO) 9.2 % (3-13); RED BLOOD COUNT 4.56 10^6/uL (3.72-5.28); SEGMENTED NEUTROPHILS % (AUTO) 71.4 % (42-78); WHITE BLOOD COUNT 9.1 10^3/uL (4.0-10.5)
[2017-06-11 14:56] LABS: ALANINE AMINOTRANSFERASE 41 U/L (9-52); ALBUMIN 3.6 g/dL (3.5-5.0); ALKALINE PHOSPHATASE 186 U/L (38-126); ANION GAP 11 (5-19); ASPARTATE AMINO TRANSFERASE 83 U/L (14-36); BILIRUBIN,DIRECT 0.4 mg/dL (0.0-0.4); BILIRUBIN,TOTAL 0.6 mg/dL (0.2-1.3); BLOOD UREA NITROGEN 26 mg/dL (7-20); CALCIUM 9.5 mg/dL (8.4-10.2); CARBON DIOXIDE 24 mmol/L (22-30); CHLORIDE 115 mmol/L (98-107); CREATININE RESULT 0.75 mg/dL (0.52-1.25); GLUCOSE 113 mg/dL (75-110); POTASSIUM 4.7 mmol/L (3.6-5.0); SODIUM 149.6 mmol/L (137-145); TOTAL PROTEIN 7.3 g/dL (6.3-8.2)
[2017-06-11 15:40] LABS: APPEARANCE,URINE CLOUDY; BILIRUBIN,URINE NEGATIVE (NEGATIVE); GLUCOSE, URINE NEGATIVE (NEGATIVE); KETONES,URINE NEGATIVE (NEGATIVE); LEUKOCYTE ESTERASE,URINE LARGE (NEGATIVE); NITRITE,URINE NEGATIVE (NEGATIVE); PROTEIN,URINE NEGATIVE (NEGATIVE); URINE SPECIFIC GRAVITY 1.023
[2017-06-11] MEDS ORDERED: CEPHALEXIN 250 MG/5 ML SUSP 100 ML PEG PRN (15:50)
[2017-06-11 16:17] VITALS: BP 108/70
== END 2017-06-11 16:41 | disposition home or self-care (01) ==
LOC: ER 13:09
DX: S60.521A Blister (nonthermal) of right hand, initial encounter (principal); S60.821A Blister (nonthermal) of right wrist, initial encounter; S60.426A Blister (nonthermal) of right little finger, initial encounter; X58.XXXA Exposure to other specified factors, initial encounter; N39.0 Urinary tract infection, site not specified; E86.0 Dehydration; Z74.01 Bed confinement status; I10 Essential (primary) hypertension; J44.9 Chronic obstructive pulmonary disease, unspecified
CPT/HCPCS: 99284; 51701; 36415; 87086; 87070; 87205; 85025; 87088; 80053; 81001; 87186; J3490

== ENCOUNTER 2017-06-11 18:38 | Inpatient (IN) | payer MEDICARE, MEDICAID ==
--- NOTE | 2017-06-11 19:25 | ER Document Report ---
ED Skin Rash/Insect Bite/Abscs - General Chief Complaint: Skin Problem Stated Complaint: WEAKNESS Time Seen by Provider: 06/11/17 19:06 Notes: Patient is a 77-year-old female that comes emergency department for chief complaint of fever at the correction ([facility]), patient was evaluated earlier today for blisters on her right hand, she was started on Keflex antibiotic. Patient has dementia, contractures, comes by EMS from [facility]. Patient is nonverbal. No family member at bedside. TRAVEL OUTSIDE OF THE [place] IN LAST 30 DAYS: No - Related Data Allergies/Adverse Reactions: No Known Allergies Allergy (Verified 06/11/17 19:20) Past Medical History - General Information source: Transfer Record - Social History Smoking Status: Never Smoker Frequency of alcohol use: None Drug Abuse: None Lives with: Family Family History: None, Reviewed & Not Pertinent - Past Medical History Cardiac Medical History: Reports: Hx Hypertension Pulmonary Medical History: Reports: Hx COPD Neurological Medical History: Denies: Hx Seizures Renal/ Medical History: Denies: Hx Peritoneal Dialysis Musculoskeltal Medical History: Reports Hx Arthritis - OA Psychiatric Medical History: Reports: Hx Bipolar Disorder, Hx Dementia Denies: Hx Depression Past Surgical History: Reports: Hx Abdominal Surgery - PEG tube. Denies: Hx Hysterectomy - Immunizations Immunizations up to date: Yes Hx Diphtheria, Pertussis, Tetanus Vaccination: No Hx Pneumococcal Vaccination: 01/21/14 Review of Systems - Review of Systems Constitutional: No symptoms reported EENT: No symptoms reported Cardiovascular: No symptoms reported Respiratory: No symptoms reported Gastrointestinal: No symptoms reported Genitourinary: No symptoms reported Female Genitourinary: No symptoms reported Musculoskeletal: See HPI Skin: See HPI Hematologic/Lymphatic: No symptoms reported Neurological/Psychological: No symptoms reported Physical Exam - Vital signs Vitals: Temp Resp 98.4 F 34 H 06/11/17 20:00 06/11/17 20:00 Interpretation: Normal - General General appearance: Other - Patient is nonverbal and does not respond other than looking at me In distress: None - HEENT Head: Normocephalic, Atraumatic Eyes: Normal Conjunctiva: Normal Extraocular movements intact: Yes Eyelashes: Normal Pupils: PERRL Mouth/Lips: Normal Mucous membranes: Normal Neck: Normal - Respiratory Respiratory status: No respiratory distress. No: Labored, Tachypnea Chest status: Nontender Breath sounds: Normal, Other - A few coarse vocalization sounds, lungs clear. No: Decreased air movement, Wheezing Chest palpation: Normal - Cardiovascular Rhythm: Regular. No: Tachycardia Heart sounds: Normal auscultation, S1 appreciated, S2 appreciated Murmur: Yes - Abdominal Inspection: Other - J-tube in place Distension: No distension Bowel sounds: Normal Tenderness: Nontender. No: Tender, Guarding Organomegaly: No organomegaly - Back Back: Normal, Nontender - Extremities General upper extremity: Other - Right hand, wrist, forearm with multiple bolus/ blisterlike areas, there is some skin sloughing or tearing over the wrist over the radial aspect, there is swelling to the hand and wrist diffusely. Capillary refill intact. No discolored drainage. General lower extremity: Nontender, Other - Bilateral lower extremity contractures - Neurological Neuro grossly intact: Yes Cognition: Normal Orientation: AAOx4 [place] Coma Scale Eye Opening: Spontaneous [place] Coma Scale Verbal: Oriented [place] Coma Scale Motor: Obeys Commands [place] Coma Scale Total: 15 Speech: Normal Motor strength normal: LUE, RUE, LLE, RLE Sensory: Normal - Psychological Associated symptoms: Normal affect, Normal mood - Skin Skin Temperature: Warm Skin Moisture: Dry Skin Color: Normal Course - Re-evaluation Re-evalutation: Patient with bullous rash and either torn or sloughed skin with soft tissue swelling of the right hand. Concerning for staph infection. Reported fever at the correction, EMS reports initial temperature was 100. Patient appears to be tachypneic per monitor, however we evaluated her respiratory rate at bedside and it was 20. A few congestion sounds, good lung sounds, no hypoxia. Chest x- ray unremarkable. Labs were no significant change from earlier today. Called Dr. Singer, pending call back. Daughter came to bedside, she states patient is a full code and she wants everything done, she also states that patient just switched to Dr. Hawk over the past few weeks for her primary care provider. She states she has revoked DNR status previously, she wants patient to be full code. After discussion she states she still wants patient to be full code. Given vancomycin, I asked Dr. Mullins to evaluate the patient at bedside, he recommends clindamycin additionally and considering for admission/observation to monitor her progress. 06/12/17 00:[address] Stout, he recommends ESR, CRP, and consult. He also recommends possible MRI, however no MRI available at this time, I informed him of this. Spoke with Dr. Andrews again, patient admitted to [facility] full admission. Called Sandra Spencer, patient's tetanus is not up to date, ordering now. - Vital Signs Vital signs: Temp Pulse Resp BP Pulse Ox 98.4 F 28 H 102/61 100 06/12/17 02:00 06/12/17 02:31 06/12/17 02:31 06/12/17 02:01 - Laboratory Result Diagrams: 06/11/17 20:00 06/11/17 20:00 Laboratory results interpreted by me: 06/11/17 06/11/17 06/11/17 20:00 20:00 20:00 MCHC 31.4 L RDW 17.0 H ESR 53 H Sodium 146.3 H Chloride 111 H BUN 27 H Glucose 111 H Direct Bilirubin 0.5 H AST 114 H Alkaline Phosphatase 164 H C-Reactive Protein 06/11/17 20:00 MCHC RDW ESR Sodium Chloride BUN Glucose Direct Bilirubin AST Alkaline Phosphatase C-Reactive Protein 31.5 H Discharge - Discharge Clinical Impression: Swelling of right hand, Blisters of multiple sites Condition: Stable Disposition: ADMITTED INPATIENT Admitting Provider: Hospitalist Unit Admitted: [facility]
[2017-06-11] MEDS ORDERED: VANCOMYCIN HCL INJ 1000 MG VIAL IV ONE (19:47)
[2017-06-11 20:20] LABS: ABSOLUTE EOSINOPHILS # (AUTO) 0.1 10^3/uL (0.0-0.6); ABSOLUTE LYMPHOCYTES (AUTO) 1.9 10^3/uL (0.5-4.7); ABSOLUTE MONOCYTES (AUTO) 0.9 10^3/uL (0.1-1.4); ABSOLUTE NEUT (AUTO) 5.5 10^3/uL (1.7-8.2); BASOPHILS % (AUTO) 0.2 % (0-2); EOSINOPHILS % (AUTO) 1.4 % (0-6); HEMATOCRIT 40.9 % (36.0-47.0); HEMOGLOBIN 12.8 g/dL (12.0-15.5); HGB HCT DIFFERENCE -2.5; LYMPHOCYTES % (AUTO) 22.7 % (13-45); MEAN CORPUSCULAR HEMOGLOBIN 28.7 pg (27.0-33.4); MEAN CORPUSCULAR HGB CONC 31.4 g/dL (32.0-36.0); MEAN CORPUSCULAR VOLUME 92 fl (80-97); MONOCYTES % (AUTO) 11.2 % (3-13); RED BLOOD COUNT 4.46 10^6/uL (3.72-5.28); SEGMENTED NEUTROPHILS % (AUTO) 64.5 % (42-78); WHITE BLOOD COUNT 8.5 10^3/uL (4.0-10.5)
[2017-06-11 20:22] LABS: VENOUS BLOOD BASE EXCESS 2.3 mmol/L; VENOUS BLOOD HCO3 27.6 mmol/L (20-32); VENOUS BLOOD PCO2 45.4 mmHg (35-63); VENOUS BLOOD PH 7.4 (7.30-7.42)
--- NOTE | 2017-06-11 20:38 | RADIOLOGY REPORT (SQ) ---
EXAM DESCRIPTION: CHEST SINGLE VIEW COMPLETED DATE/TIME: 06/11/2017 8:24 pm REASON FOR STUDY: ? fever, congested cough COMPARISON: 10/27/2016 EXAM PARAMETERS: NUMBER OF VIEWS: One view. TECHNIQUE: Single frontal radiographic view of the chest acquired. RADIATION DOSE: NA LIMITATIONS: None. FINDINGS: LUNGS AND PLEURA: Small area of left basilar airspace disease-effusion. Right lung appear s clear. Similar chronic interstitial changes and nodularity. MEDIASTINUM AND HILAR STRUCTURES: Stable. HEART AND VASCULAR STRUCTURES: Stable cardiac enlargement. BONES: No acute findings. HARDWARE: None in the chest. OTHER: No other significant finding. IMPRESSION: Small area of left basilar airspace disease-effusion. TECHNICAL DOCUMENTATION: JOB ID: [id number]
--- NOTE | 2017-06-11 20:41 | RADIOLOGY REPORT (SQ) ---
EXAM DESCRIPTION: HAND RIGHT 3 VIEWS COMPLETED DATE/TIME: 06/11/2017 8:24 pm REASON FOR STUDY: swelling, blistering, skin sloughing. ? gas COMPARISON: None. EXAM PARAMETERS: NUMBER OF VIEWS: Three views. TECHNIQUE: AP, lateral and oblique radiographic images acquired of the right hand. LIMITATIONS: None. FINDINGS: MINERALIZATION: Osteopenia. BONES: No acute fracture or dislocation. No worrisome bone lesions. JOINTS: No effusions. SOFT TISSUES: Diffuse soft tissue swelling. No radiopaque foreign body or soft tissue gas identified . OTHER: No other significant finding. IMPRESSION: Diffuse soft tissue swelling. No fracture, radiopaque foreign body, or soft tissue gas identified. TECHNICAL DOCUMENTATION: JOB ID: [id number] [email or web address]- All Rights Reserved
--- NOTE | 2017-06-11 20:42 | RADIOLOGY REPORT (SQ) ---
EXAM DESCRIPTION: WRIST RIGHT 3 VIEWS COMPLETED DATE/TIME: 06/11/2017 8:24 pm REASON FOR STUDY: swelling, blistering, ? gas COMPARISON: None. NUMBER OF VIEWS: Three views. TECHNIQUE: AP, lateral, and oblique radiographic images acquired of the right wrist. LIMITATIONS: None. FINDINGS: MINERALIZATION: Osteopenia. BONES: No acute fracture or dislocation. No worrisome bone lesions. SOFT TISSUES: Diffuse soft tissue swelling. No radiopaque foreign body or soft tissue gas. OTHER: No other significant finding. IMPRESSION: Diffuse soft tissue swelling. No fracture, radiopaque foreign body or soft tissue gas. TECHNICAL DOCUMENTATION: JOB ID: [id number] [email or web address]- All Rights Reserved
[2017-06-11 20:54] LABS: ALANINE AMINOTRANSFERASE 38 U/L (9-52); ALBUMIN 3.5 g/dL (3.5-5.0); ALKALINE PHOSPHATASE 164 U/L (38-126); ANION GAP 9 (5-19); ASPARTATE AMINO TRANSFERASE 114 U/L (14-36); BILIRUBIN,DIRECT 0.5 mg/dL (0.0-0.4); BILIRUBIN,TOTAL 0.9 mg/dL (0.2-1.3); BLOOD UREA NITROGEN 27 mg/dL (7-20); CALCIUM 9.2 mg/dL (8.4-10.2); CARBON DIOXIDE 26 mmol/L (22-30); CHLORIDE 111 mmol/L (98-107); CREATININE RESULT 0.73 mg/dL (0.52-1.25); GLUCOSE 111 mg/dL (75-110); POTASSIUM 4.4 mmol/L (3.6-5.0); SODIUM 146.3 mmol/L (137-145); TOTAL PROTEIN 7.2 g/dL (6.3-8.2)
[2017-06-11] MEDS ORDERED: CLINDAMYCIN 900 MG/D5W RTU 50 ML IV ONE (22:00)
[2017-06-12] MEDS ORDERED: NORMAL SALINE 1000 ML 500 ML IV ONE (00:44)
[2017-06-12] MEDS ORDERED: DIPH/PERTUSS(ACELL)/TETANUS VAC/PF 0.5 ML SYR (>=10YO) IM ONE (00:56)
[2017-06-12] MEDS ORDERED: 1/2 NORMAL SALINE 1,000 ML IV PRN (03:13)
[2017-06-12] MEDS ORDERED: CEFAZOLIN 1 GM/D5W RTU 1 GM/50 ML RTUPB IV SCH (03:15)
[2017-06-12] MEDS ORDERED: VANCOMYCIN HCL 0 MG in DEXTROSE 5%-WATER 250 ML IV NR (03:15)
[2017-06-12] MEDS ORDERED: GLUCAGON,HUMAN RECOMB 1 MG INJ SUBCUT PRN (03:17)
[2017-06-12] MEDS ORDERED: DEXTROSE 50%-WATER 25 GM/50 ML DISP.SYRIN IV PRN ×2 (03:17)
[2017-06-12] MEDS ORDERED: IPRATROPIUM/ALBUTEROL 0.5-2.5 MG/3 ML AMPUL NEB PRN ×2 (03:17→12:51)
[2017-06-12] MEDS ORDERED: DEXTROSE 40% GEL 15 GM TUBE PO PRN ×2 (03:17)
[2017-06-12] MEDS ORDERED: ACETAMINOPHEN SOLN 325 MG/10.15 ML UDCUP PEG PRN ×2 (03:27→11:30)
[2017-06-12] MEDS ORDERED: PROMETHAZINE HCL 6.25 MG/5 ML SYRUP 60 ML PEG PRN (03:28)
--- NOTE | 2017-06-12 04:02 | PDOC H&P ---
History of Present Illness Admission Date/PCP: 06/12/17 01:00 [facility] Patient complains of: Swelling and blistering of right forearm and hand History of Present Illness: URSULA RAMOS is a 77 year old -[place] female resident of [facility], severe underlying dementia, bedbound, with chronic contractures and chronically nonverbal, who presents to the emergency room for evaluation of above complaints. Patient has been discussed with emergency room nurse practitioner who evaluated the patient. Nurse practitioner did discuss the patient prior to formal admission with on-call orthopedist, Dr. Stout, who recommended MRI, which has been ordered. MRI not available at the time of day when initially recommended; orthopedist aware. Patient is completely nonverbal and noninteractive with her surroundings and is able to provide no history whatsoever in terms of acute or chronic events, review of systems, personal habits, family history, etc. No friends or family are present. Old inpatient records are reviewed. Patient was seen in the emergency room on 06/11/2017 for blisters on her right hand. Started on Keflex. Brought back to the emergency room whenthe soft tissue swelling and blistering worsened. No further information available this point in time. Hospitalized under the care of her previous primary care provider the through 04 November of this year with final diagnoses including urinary tract infection due to enterococcus, hypernatremia, metabolic encephalopathy, and advanced dementia. Notation is made in her transfer summary that "with slow correction of the serum sodium patient regained full consciousness and alertness." History and physical and discharge summary have been reviewed. At the time of the above transfer, she was DNR status, but according to nursing staff discussion with daughter, who was present earlier, patient is now full code. Dictation via voice recognition software. Laboratory results are listed in [employer] and are reviewed. X-ray summary results are listed below, with full report(s) reviewed. . Social history/personal habits: Advanced dementia. Nonverbal. Resident of [facility]. No further information available this point in time. No known drug allergies. Home medications initially autopopulated into [employer] [facility] may not accurately reflect patient's true medications, dosages, and/or frequencies. auto body technician to reconcile medications. Unfortunately, patient not able to provide any information relating to medications/dosages/frequencies. REVIEW OF SYSTEMS: See history and present illness. No further information available this point in time. PHYSICAL EXAMINATION: Neither height nor weight are recorded on the chart. Blood pressure 102/61. Pulse 92 and regular. 100% saturation on room air. Respirations are 24 and unlabored. Temperature 98.4. Slightly obese otherwise well-developed elderly -Lao female appearing approximately her stated age. Does not respond to name. Minimal grimace with trapezius pinch. Keeps eyes closed. Not interactive with her surroundings. Maintaining airway well. Skin is warm and dry. No grossly obvious evidence of rash in areas of skin examined. No subcutaneous nodules palpated. See comments under "extremities" below. ENT: Hearing cannot be adequately evaluated due to her mental status. Eyes: Cannot be adequately evaluated, due to patient closing eyelids tightly when examination attempted. No raccoon eyes. Neck is nontender to palpation. Midline trachea. No palpable thyroid nodule mass enlargement or tenderness. Lymphatic: No palpable cervical or clavicular nodes. Neck and lymphatic exams limited by patient body habitus. Psychiatric: Cannot be adequately evaluated due to her current status. Lungs: Auscultation reveals clear and equal breath sounds bilaterally. No use of accessory respiratory muscles. Cardiovascular: Heart regular rate and rhythm, without gallop murmur or rub. No carotid or abdominal aortic bruits. Bilateral symmetric slightly pitting calf ankle and pedal edema, a bit more pronounced on the dorsum of each foot. Not sure I can palpate dorsalis pedis and posterior tibial pulses on either side due to edema, but acceptable capillary refill at toes. Feet are warm and dry. Abdomen:soft slightly distended nontender with positive bowel sounds. Unable to adequately evaluate abdomen for masses or organomegaly due to distention. PEG tube site looks good, without evidence of infection or excessive drainage. Extremities: No calf tenderness to compression. Flexion contractures at knees and hips bilaterally. Examination of the right upper extremity reveals mild to moderate soft tissue swelling extending from the distal half of the forearm through her fingers. Both intact and ruptured blisters noted. Moderate-sized intact blister on the palm of her hand. Serosanguineous fluid appears to be inside. No obvious gross purulence. Mild cellulitis and warmth in the area of soft tissue swelling. No crepitus. Palpable right radial pulse. Neurologic: Absent Babinski. Light touch cannot be adequately evaluated due to her current status. Past Medical History Past Medical History: Information from current and old records; patient cannot provide any information herself. Cardiac Medical History: Reports: Hypertension Pulmonary Medical History: Reports: Chronic Obstructive Pulmonary Disease (COPD) Neurological Medical History: Denies: Seizures Musculoskeltal Medical History: Reports: Arthritis - OA Psychiatric Medical History: Reports: Bipolar Disorder, Dementia Denies: Depression Hematology: Reports: Anemia Past Surgical History Past Surgical History: Information from current and old records; patient cannot provide any information herself. Social History Information Source: Emergency Med Personnel, [facility] Records Lives with: [facility] Smoking Status: Unknown if Ever Smoked Frequency of Alcohol Use: None - Reported history of alcohol abuse per old records. Hx Recreational Drug Use: No Hx Prescription Drug Abuse: No - Advance Directive Resuscitation Status: Full Code Surrogate healthcare decision maker:: Likely daughter, but not completely certain. Family History Family History: None, Reviewed & Not Pertinent Parental Family History Reviewed: No - Patient cannot provide any information related to same Children Family History Reviewed: No - Patient cannot provide any information related to same Sibling(s) Family History Reviewed.: No - Patient cannot provide any information related to same Medication/Allergy Home Medications: Albuterol Sulfate [Ventolin Hfa] 2 puff IH Q4HP PRN 06/12/17 Carvedilol [Coreg 25 mg Tablet] 25 mg PEG Q12 06/12/17 Folic Acid [Folvite 1 mg Tablet] 1 mg PEG DAILY 06/12/17 Ipratropium/Albuterol Sulfate [Duoneb 3 ml Ampul] 3 ml NEB RTQ4HP PRN 06/12/17 Mirtazapine [Remeron 15 mg Tablet] 15 mg PEG QHS 06/12/17 Risperidone [Risperdal] 2 mg PEG DAILY 06/12/17 Doxycycline Hyclate [Vibramycin 100 mg Tablet] 100 mg PO Q12 #10 tablet Oxycodone HCl [Oxy-Ir 5 mg Tablet] 5 mg PEG Q4HP PRN #18 tablet 06/19/17 Polyethylene Glycol 3350 [Miralax Powder 17 gm/Packet] 17 gm PEG DAILY powd.pack 06/19/17 Prednisone [Deltasone 20 mg Tablet] 20 mg PEG DAILY #5 tablet 06/19/17 Silver Sulfadiazine [Silvadene 1% Cream 50 gm] 1 applic TP BID #0 tube 06/19/17 Allergies/Adverse Reactions: No Known Allergies Allergy (Verified 06/11/17 19:20) Physical Exam Vital Signs: Temp Pulse Resp BP Pulse Ox 98.4 F 28 H 102/61 100 06/12/17 02:00 06/12/17 02:31 06/12/17 02:31 06/12/17 02:01 Results Impressions: Chest X-Ray 06/11/17 19:21 IMPRESSION: Small area of left basilar airspace disease-effusion. Hand X-Ray 06/11/17 19:47 IMPRESSION: Diffuse soft tissue swelling. No fracture, radiopaque foreign body , or soft tissue gas identified. Wrist X-Ray 06/11/17 19:48 IMPRESSION: Diffuse soft tissue swelling. No fracture, radiopaque foreign body or soft tissue gas. Assessment & Plan - Diagnosis (1) Abnormal chest x-ray Is this a current diagnosis for this admission?: Yes Plan: Lungs are clear to auscultation. Suspect this is merely atelectasis. (2) Blister of right forearm Qualifiers: Encounter type: initial encounter Qualified Code(s): S50.821A - Blister ( nonthermal) of right forearm, initial encounter Is this a current diagnosis for this admission?: Yes (3) Blister of right hand Qualifiers: Encounter type: initial encounter Qualified Code(s): S60.521A - Blister ( nonthermal) of right hand, initial encounter Is this a current diagnosis for this admission?: Yes (4) Cellulitis of right forearm Is this a current diagnosis for this admission?: Yes Plan: Orthopedics consult; Dr. Stout is aware and has given recommendations. Ancef and intravenous vancomycin; pharmacy to assist with dosing of vancomycin. Elevate right forearm at least 60. Contact precautions. We will hold tube feedings in case orthopedics wishes to take patient to operating room later this morning. Knee high SCDs for DVT prophylaxis, along with subcutaneous heparin. Time spent in evaluation and management of patient: 60 minutes. (5) Cellulitis of right hand Is this a current diagnosis for this admission?: Yes (6) Hypernatremia Is this a current diagnosis for this admission?: Yes Plan: Half-normal saline while tube feedings are on hold. Serial chemistry. (7) Advanced dementia Is this a current diagnosis for this admission?: Yes - Time Time Spent: 50 to 70 Minutes Anticipated discharge: SNF Within: Other - Inpatient Certification Based on my medical assessment, after consideration of the patient's comorbidities, presenting symptoms, or acuity I expect that the services needed warrant INPATIENT care.: Yes I certify that my determination is in accordance with my understanding of Medicare's requirements for reasonable and necessary INPATIENT services [42 CFR 412.3e].: Yes Medical Necessity: Failure to Improve With Outpatient Therapy, Need Close Monitoring Due to Risk of Patient Decompensation, Need for IV Antibiotics, Risk of Complication if Not Cared For in Hospital Post Hospital Care: D/C or Transfer Summary
[2017-06-12 05:13] LABS: APPEARANCE,URINE TURBID; BILIRUBIN,URINE NEGATIVE (NEGATIVE); GLUCOSE, URINE NEGATIVE (NEGATIVE); KETONES,URINE NEGATIVE (NEGATIVE); LEUKOCYTE ESTERASE,URINE MODERATE (NEGATIVE); NITRITE,URINE NEGATIVE (NEGATIVE); PROTEIN,URINE 100 mg/dL (NEGATIVE); URINE SPECIFIC GRAVITY 1.017; UROBILINOGEN,URINE NEGATIVE mg/dL (<2.0)
[2017-06-12] MEDS: 1/2 NORMAL SALINE 1,000 ML IV PRN ×2 (05:35→13:40)
[2017-06-12 07:07] LABS: ABSOLUTE BASOPHILS # (AUTO) 0.1 10^3/uL (0.0-0.2); ABSOLUTE EOSINOPHILS # (AUTO) 0.2 10^3/uL (0.0-0.6); ABSOLUTE LYMPHOCYTES (AUTO) 2.1 10^3/uL (0.5-4.7); ABSOLUTE MONOCYTES (AUTO) 0.9 10^3/uL (0.1-1.4); ABSOLUTE NEUT (AUTO) 4.6 10^3/uL (1.7-8.2); BASOPHILS % (AUTO) 1.1 % (0-2); EOSINOPHILS % (AUTO) 2.5 % (0-6); HEMATOCRIT 36.6 % (36.0-47.0); HEMOGLOBIN 13.1 g/dL (12.0-15.5); HGB HCT DIFFERENCE 2.7; LYMPHOCYTES % (AUTO) 26.8 % (13-45); MEAN CORPUSCULAR HEMOGLOBIN 33.1 pg (27.0-33.4); MEAN CORPUSCULAR HGB CONC 35.8 g/dL (32.0-36.0); MEAN CORPUSCULAR VOLUME 93 fl (80-97); MONOCYTES % (AUTO) 10.8 % (3-13); RED BLOOD COUNT 3.96 10^6/uL (3.72-5.28); RED CELL DISTRIBUTION WIDTH 16.9 % (11.5-14.0); SEGMENTED NEUTROPHILS % (AUTO) 58.8 % (42-78); WHITE BLOOD COUNT 7.9 10^3/uL (4.0-10.5)
[2017-06-12 07:27] LABS: ANION GAP 10 (5-19); BLOOD UREA NITROGEN 30 mg/dL (7-20); CALCIUM 8.8 mg/dL (8.4-10.2); CARBON DIOXIDE 25 mmol/L (22-30); CHLORIDE 114 mmol/L (98-107); CREATININE RESULT 0.84 mg/dL (0.52-1.25); GLUCOSE 87 mg/dL (75-110); POTASSIUM 5.1 mmol/L (3.6-5.0); SODIUM 149.2 mmol/L (137-145)
[2017-06-12] MEDS ORDERED: DOCUSATE SODIUM 100 MG/10 ML UDC PEG SCH (10:00)
[2017-06-12] MEDS: ENOXAPARIN SODIUM INJ 40 MG/0.4 ML DISP.SYRIN SUBCUT SCH (11:17)
[2017-06-12] MEDS: DOCUSATE SODIUM 100 MG CAPSULE PO SCH ×2 (11:18→17:17)
[2017-06-12] MEDS ORDERED: MORPHINE SULFATE 10 MG/ML INJ IV PRN (12:54)
[2017-06-12] MEDS ORDERED: ALBUTEROL SULFATE HFA (90 MCG/PUFF) 200 PUFF/8.5 GM MDI IH PRN (13:15)
[2017-06-12] MEDS: CLINDAMYCIN 900 MG/D5W RTU 50 ML IV SCH ×2 (13:40→23:36)
--- NOTE | 2017-06-12 15:10 | PDOC PROGRESS REPORT ---
Subjective Progress Note for:: 06/12/17 Subjective:: Patient was seen on morning rounds. She is resting in bed. There is no family at bedside. She is verbally noncommunicative. She does move her upper extremities. Nothing to command. Right hand and forearm are dressed with visible serous discharge through the dressing. She is also noted to have 2 blistered areas on her right upper thigh. Review of systems is unobtainable due to her present mentation. Physical Exam Vital Signs: Temp Pulse Resp BP Pulse Ox 98.5 F 96 16 116/29 L 98 06/12/17 11:51 06/12/17 14:00 06/12/17 13:52 06/12/17 11:51 06/12/17 13:52 Intake & Output 06/11/17 06/12/17 06/13/17 06:59 06:59 06:59 Intake Total 10 Output Total 300 Balance -290 Weight 75.2 kg General appearance: PRESENT: no acute distress, obese, well-developed, well- nourished Head exam: PRESENT: atraumatic, normocephalic Eye exam: PRESENT: conjunctiva pink, EOMI, PERRLA. ABSENT: scleral icterus Ear exam: PRESENT: normal external ear exam Mouth exam: PRESENT: moist, neck supple, tongue midline Teeth exam: PRESENT: edentulous Neck exam: ABSENT: carotid bruit, JVD, lymphadenopathy, thyromegaly Respiratory exam: PRESENT: decreased breath sounds, symmetrical, unlabored Cardiovascular exam: PRESENT: RRR. ABSENT: diastolic murmur, rubs, systolic murmur Pulses: PRESENT: normal dorsalis pedis pul Vascular exam: PRESENT: normal capillary refill GI/Abdominal exam: PRESENT: normal bowel sounds, soft. ABSENT: distended, guarding, mass, organolmegaly, rebound, tenderness Rectal exam: PRESENT: deferred Musculoskeletal exam: PRESENT: deformity, other - lower extremities appeared contracted Neurological exam: PRESENT: altered, CN II-XII grossly intact Skin exam: PRESENT: dry - Patient with multiple bulla on the dorsum of the right hand with one giant bulla on the palmar surface of the hand. There is an approximately 10cm x 4 cm area of scalded appearing tissue on dorsum of the right hand and wrist. Tissue is pink and granulating. Two blistered areas on right thigh, erythema, warm, other Results Laboratory Results: 06/12/17 06:47 06/12/17 06:47 06/12/17 06/12/17 06/12/17 04:43 06:47 06:47 WBC 7.9 RBC 3.96 Hgb 13.1 Hct 36.6 MCV 93 MCH 33.1 MCHC 35.8 RDW 16.9 H Plt Count 151 Seg Neutrophils % 58.8 Lymphocytes % 26.8 Monocytes % 10.8 Eosinophils % 2.5 Basophils % 1.1 Absolute Neutrophils 4.6 Absolute Lymphocytes 2.1 Absolute Monocytes 0.9 Absolute Eosinophils 0.2 Absolute Basophils 0.1 Sodium 149.2 H Potassium 5.1 H Chloride 114 H Carbon Dioxide 25 Anion Gap 10 BUN 30 H Creatinine 0.84 Est GFR ( Amer) > 60 Est GFR (Non-Af Amer) > 60 Glucose 87 Calcium 8.8 Urine Color YELLOW Urine Appearance TURBID Urine pH 5.0 Ur Specific [place] 1.017 Urine Protein 100 H Urine Glucose (UA) NEGATIVE Urine Ketones NEGATIVE Urine Blood MODERATE H Urine Nitrite NEGATIVE Ur Leukocyte Esterase MODERATE H Urine WBC (Auto) >182 Urine RBC (Auto) 64 Impressions: Chest X-Ray 06/11/17 19:21 IMPRESSION: Small area of left basilar airspace disease-effusion. Hand X-Ray 06/11/17 19:47 IMPRESSION: Diffuse soft tissue swelling. No fracture, radiopaque foreign body , or soft tissue gas identified. Wrist X-Ray 06/11/17 19:48 IMPRESSION: Diffuse soft tissue swelling. No fracture, radiopaque foreign body or soft tissue gas. 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 She is presently coverage for possible strep, staph and MRSA. 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 We will continue vancomycin until cultures are resolved. We will change Ancef to clindamycin for better strep coverage. Also add Silvadene and Xeroform gauze dressings to dressing change. Consult general surgery for local wound management (2) Cellulitis of right forearm Is this a current diagnosis for this admission?: Yes Plan: Continue current antibiotic therapy. (3) Cellulitis of right hand Is this a current diagnosis for this admission?: Yes (4) Hypernatremia Is this a current diagnosis for this admission?: Yes Plan: Patient is being hydrated with IV half-normal saline most likely secondary to prerenal dehydration. (5) Acute kidney injury Is this a current diagnosis for this admission?: Yes Plan: Continue IV hydration most likely secondary to prerenal dehydration per (6) Dementia Qualifiers: Dementia type: unspecified type Dementia behavioral disturbance: without behavioral disturbance Qualified Code(s): F03.90 - Unspecified dementia without behavioral disturbance - Time Time Spent with patient: 25-34 minutes Critical Time spent with patient: 15-24 minutes Anticipated discharge: SNF
[2017-06-12] MEDS ORDERED: NORMAL SALINE 1000 ML 2,000 ML IV ONE (17:08)
[2017-06-12] MEDS ORDERED: NORMAL SALINE 1000 ML 1,000 ML IV PRN (17:08)
[2017-06-12] MEDS: SILVER SULFADIAZINE 1% CREAM 50 GM TP SCH (17:16)
[2017-06-12] MEDS ORDERED: IMIPENEM/CILASTATIN SODIUM 1,000 MG in NORMAL SALINE 250 ML IV SCH (17:30)
--- NOTE | 2017-06-12 19:42 | RADIOLOGY REPORT (SQ) ---
EXAM DESCRIPTION: MRI RT UPPER EXTREMITY COMBO COMPLETED DATE/TIME: 06/12/2017 4:45 pm REASON FOR STUDY: rt hand/forearm cellulitis/blistering COMPARISON: None. TECHNIQUE: Right hand images acquired and stored on PACS. Multiplanar pre and postcontrast imaging t o include fat sensitive sequences such as T1, water sensitive sequences such as FST2/STIR, cartilage sensitive sequences such as FSPD/gradient-echo sequences. Contrast cyst administered is 15 mL ProHan ce. Renal function GFR greater than 60. LIMITATIONS: Significant motion artifact. FINDINGS: BONE MARROW AND CORTEX: No marrow replacement or enhancement. No occult fractures. SOFT TISSUES: Diffuse soft tissue swelling greater on the dorsum of the hand and wrist without focal defined enhancing fluid collection. There is mild enhancement seen in the dorsal soft tissues partic ularly around the 2nd metacarpal and the musculature of the 1st- 2nd metacarpal interspace. OTHER: No other significant finding. IMPRESSION: Diffuse soft tissue swelling greater on the dorsum of the hand and wrist without focal d efined enhancing fluid collection. There is mild enhancement seen in the dorsal soft tissues particu larly around the 2nd metacarpal and the musculature of the 1st- 2nd metacarpal interspace. No marrow replacement or enhancement. Orthopedic consultation is recommended. TECHNICAL DOCUMENTATION: JOB ID: [id number] [employer]- All Rights Reserved
[2017-06-12] MEDS: VANCOMYCIN HCL 1,000 MG in DEXTROSE 5%-WATER 250 ML IV SCH (20:23)
[2017-06-12] MEDS ORDERED: IMIPENEM/CILASTATIN SODIUM 500 MG in NORMAL SALINE 100 ML IV SCH (21:00)
[2017-06-12] MEDS ORDERED: CARVEDILOL 12.5 MG TABLET PEG SCH (22:00)
--- NOTE | 2017-06-12 22:50 | Brief Operative Note ---
BRIEF OPERATIVE REPORT DATE OF SURGERY: 06/12/17 TIME OF SURGERY: 22:40 PREOPERATIVE DIAGNOSIS: Inadequate peripheral venous access POSTOPERATIVE DIAGNOSIS: Inadequate peripheral venous access SURGEON: SISI KHAN FINDINGS: NO PTX. TLC in SVC COMPLICATIONS: None ESTIMATED BLOOD LOSS: 0cc TISSUE REMOVED OR ALTERED: None TECHNICAL PROCEDURE: See dictation
--- NOTE | 2017-06-12 23:37 | OPERATIVE REPORT E ---
Operative Report NAME: URSULA RAMOS : 1940 AGE: 77Y DATE OF SURGERY: 06/12/2017 ROOM: 608 PREOPERATIVE DIAGNOSIS: Inadequate peripheral venous access. POSTOPERATIVE DIAGNOSIS: Inadequate peripheral venous access. OPERATION: Insertion of left subclavian vein triple lumen catheter. SURGEON: SISI KHAN M.D. ANESTHESIA: Local 1% Xylocaine. COMPLICATIONS: None. CONDITION: Stable. INDICATION FOR PROCEDURE: This 77-year-old female who has inadequate peripheral venous access who at the present time is hypotensive and has a peripheral line in her dorsum of her right foot is in need of central venous access for infusion of fluids, antibiotics, medications and possibly vasopressors. PROCEDURE: The patient was transferred to the ICU within the last hour because of persistent hypotension of unknown etiology. Patient is in need of central venous access. After consent was obtained, the patient's right chest was prepped and draped in the usual sterile manner. Local anesthesia was infiltrated into the space between the clavicle and the first rib on the right side and we attempted to access the right subclavian vein. This was unsuccessful and we were not able to access the vein. We then decided to access the left subclavian vein and the jugular was not available as the patient has a frozen neck and a contracture and has persistent flexion of her neck and cannot turn her neck to either side. The left subclavian approach was used and local anesthesia was then infiltrated into the space between the clavicle and the first rib on the left after the area had been prepped and draped in the usual sterile manner. Upon accessing the left subclavian vein with a flash of venous blood in the syringe, the syringe was then removed and a guidewire was advanced through the needle and presumably into the superior vena cava. The vein dilator was then placed over the guidewire and then using the sterile Seldinger technique the triple lumen catheter was advanced over the guidewire as the guidewire was removed and the catheter was advanced to the 20 cm zeb. After getting good venous return through each lumen and after flushing each lumen with saline, the catheter was secured in this position with 3-0 silk. After securing the catheter in the left chest, the Biopatch and Tegaderm was then placed over the triple lumen catheter. The procedure was terminated. Portable chest x-ray has been requested. DICTATING PHYSICIAN: SISI KHAN M.D. [id number] PHY#: [id number] ID: [id number] JOB#: [id number] ACCT: [id number] cc:SISI KHAN M.D. >
[2017-06-12] MEDS: MIRTAZAPINE 15 MG TABLET PEG SCH (23:39)
[2017-06-13] MEDS ORDERED: IMIPENEM/CILASTATIN SODIUM INJ 500 MG VIAL IV ONE (00:31)
--- NOTE | 2017-06-13 00:34 | RADIOLOGY REPORT (SQ) ---
EXAM DESCRIPTION: CHEST SINGLE VIEW COMPLETED DATE/TIME: 06/12/2017 10:53 pm REASON FOR STUDY: Central Line Placement COMPARISON: 06/11/2017 and 10/27/2016 EXAM PARAMETERS: NUMBER OF VIEWS: One view. TECHNIQUE: Single frontal radiographic view of the chest acquired. RADIATION DOSE: NA LIMITATIONS: None. FINDINGS: LUNGS AND PLEURA: No acute opacities, masses or pneumothorax. Similar chronic interstitia l changes and emphysema. No significant pleural effusion. MEDIASTINUM AND HILAR STRUCTURES: Stable. HEART AND VASCULAR STRUCTURES: Stable. BONES: No acute findings. HARDWARE: Left subclavian central venous catheter with tip overlying the SVC above the RA junction. OTHER: No other significant finding. IMPRESSION: NO ACUTE RADIOGRAPHIC FINDING IN THE CHEST. TECHNICAL DOCUMENTATION: JOB ID: [id number]
[2017-06-13] MEDS ORDERED: IMIPENEM/CILASTATIN SODIUM 500 MG in NORMAL SALINE 100 ML IV ONE (01:00)
[2017-06-13] MEDS ORDERED: IMIPENEM/CILASTATIN SODIUM INJ 500 MG VIAL IV PRN (01:08)
[2017-06-13] MEDS ORDERED: 1/2 NORMAL SALINE 500 ML IV ONE (04:00)
[2017-06-13] MEDS: CLINDAMYCIN 900 MG/D5W RTU 50 ML IV SCH ×3 (05:03→21:41)
[2017-06-13 05:05] LABS: ABSOLUTE EOSINOPHILS # (AUTO) 0.3 10^3/uL (0.0-0.6); ABSOLUTE LYMPHOCYTES (AUTO) 1.2 10^3/uL (0.5-4.7); ABSOLUTE MONOCYTES (AUTO) 0.6 10^3/uL (0.1-1.4); ABSOLUTE NEUT (AUTO) 4.4 10^3/uL (1.7-8.2); BASOPHILS % (AUTO) 0.5 % (0-2); EOSINOPHILS % (AUTO) 4.4 % (0-6); HEMATOCRIT 32.6 % (36.0-47.0); HGB HCT DIFFERENCE -1.4; LYMPHOCYTES % (AUTO) 18.1 % (13-45); MEAN CORPUSCULAR HEMOGLOBIN 29.6 pg (27.0-33.4); MEAN CORPUSCULAR HGB CONC 31.9 g/dL (32.0-36.0); MEAN CORPUSCULAR VOLUME 93 fl (80-97); MONOCYTES % (AUTO) 9.7 % (3-13); RED BLOOD COUNT 3.51 10^6/uL (3.72-5.28); RED CELL DISTRIBUTION WIDTH 16.6 % (11.5-14.0); SEGMENTED NEUTROPHILS % (AUTO) 67.3 % (42-78); WHITE BLOOD COUNT 6.5 10^3/uL (4.0-10.5)
[2017-06-13 05:08] LABS: ANION GAP 8 (5-19); BLOOD UREA NITROGEN 22 mg/dL (7-20); CALCIUM 8.1 mg/dL (8.4-10.2); CARBON DIOXIDE 25 mmol/L (22-30); CHLORIDE 116 mmol/L (98-107); CREATININE RESULT 0.79 mg/dL (0.52-1.25); GLUCOSE 76 mg/dL (75-110); SODIUM 148.9 mmol/L (137-145)
[2017-06-13] MEDS: IMIPENEM/CILASTATIN SODIUM 500 MG in NORMAL SALINE 100 ML IV SCH ×4 (05:09→23:42)
[2017-06-13 05:13] LABS: HEMOGLOBIN 10.4 g/dL (12.0-15.5)
[2017-06-13 05:17] LABS: POTASSIUM 3.9 mmol/L (3.6-5.0)
[2017-06-13] MEDS ORDERED: 1/2 NORMAL SALINE 1,000 ML IV PRN (06:29)
[2017-06-13] MEDS ORDERED: OXYCODONE HCL IR 5 MG TABLET PEG PRN (07:58)
[2017-06-13] MEDS ORDERED: DEXTROSE 5%-WATER 250 ML with NOREPINEPHRINE BITARTRATE 4 MG IV PRN ×2 (07:59)
--- NOTE | 2017-06-13 08:50 | Progress Note ---
Provider Note Provider Note: Patient seen and examined independently of [employer] OPERATOR [employer] and discussed with her. Agree with her current management.
--- NOTE | 2017-06-13 08:57 | PDOC PROGRESS REPORT ---
Subjective Progress Note for:: 06/13/17 Subjective:: Patient was seen on morning rounds. She is resting in bed. She had some hypotension last night and had to be transferred to ICU for possible pressor There is no family at bedside. She is verbally noncommunicative. She does move her upper extremities. Nothing to command. Right hand was debrided by Dr Rodriguez last evening. He drained the large palmar blister. The dorsum of her hand is pink and granulating. She is also noted to have 2 blistered areas on her right upper thigh. Review of systems is unobtainable due to her present mentation. Physical Exam Vital Signs: Temp Pulse Resp BP Pulse Ox 98.1 F 84 23 H 99/59 L 98 06/13/17 07:45 06/13/17 07:45 06/13/17 07:45 06/13/17 07:45 06/13/17 07:45 Intake & Output 06/12/17 06/13/17 06/14/17 06:59 06:59 06:59 Intake Total 10 3260 Output Total 300 1085 225 Balance -290 2175 -225 Weight 75.2 kg 75.1 kg General appearance: PRESENT: no acute distress, obese, well-developed, well- nourished Head exam: PRESENT: atraumatic, normocephalic Eye exam: PRESENT: conjunctiva pink, EOMI, PERRLA. ABSENT: scleral icterus Ear exam: PRESENT: normal external ear exam Mouth exam: PRESENT: moist, tongue midline Teeth exam: PRESENT: edentulous Neck exam: ABSENT: carotid bruit, JVD, lymphadenopathy, thyromegaly Respiratory exam: PRESENT: decreased breath sounds, symmetrical, unlabored Cardiovascular exam: PRESENT: RRR, +S1, +S2 Pulses: PRESENT: normal carotid pulses, normal radial pulses Vascular exam: PRESENT: normal capillary refill GI/Abdominal exam: PRESENT: normal bowel sounds, soft, other - G tube patent. ABSENT: distended, guarding, mass, organolmegaly, rebound, tenderness Rectal exam: PRESENT: deferred Extremities exam: PRESENT: other - bilateral lower extremities are contracted. ABSENT: calf tenderness, clubbing, pedal edema Musculoskeletal exam: PRESENT: deformity, other - upper extremities are contracted, she does spontaneously move them Neurological exam: PRESENT: altered, CN II-XII grossly intact, motor sensory deficit Psychiatric exam: PRESENT: flat affect Focused psych exam: PRESENT: other Skin exam: PRESENT: dry, warm, other - 4cm x 10 cm area on dorsum of the right hand and wrist, pink and granulating Results Laboratory Results: 06/13/17 04:00 06/13/17 04:00 06/13/17 06/13/17 04:00 04:00 WBC 6.5 RBC 3.51 L Hgb 10.4 L D Hct 32.6 L MCV 93 MCH 29.6 MCHC 31.9 L RDW 16.6 H Plt Count 154 Seg Neutrophils % 67.3 Lymphocytes % 18.1 Monocytes % 9.7 Eosinophils % 4.4 Basophils % 0.5 Absolute Neutrophils 4.4 Absolute Lymphocytes 1.2 Absolute Monocytes 0.6 Absolute Eosinophils 0.3 Absolute Basophils 0.0 Sodium 148.9 H Potassium 3.9 D Chloride 116 H Carbon Dioxide 25 Anion Gap 8 BUN 22 H Creatinine 0.79 Est GFR ( Amer) > 60 Est GFR (Non-Af Amer) > 60 Glucose 76 Calcium 8.1 L Magnesium 2.0 Impressions: Hand X-Ray 06/11/17 19:47 IMPRESSION: Diffuse soft tissue swelling. No fracture, radiopaque foreign body , or soft tissue gas identified. Wrist X-Ray 06/11/17 19:48 IMPRESSION: Diffuse soft tissue swelling. No fracture, radiopaque foreign body or soft tissue gas. Chest X-Ray 06/12/17 00:00 IMPRESSION: NO ACUTE RADIOGRAPHIC FINDING IN THE CHEST. Upper Extremity MRI 06/12/17 07:00 IMPRESSION: Diffuse soft tissue swelling greater on the dorsum of the hand and wrist without focal defined enhancing fluid collection. There is mild enhancement seen in the dorsal soft tissues particularly around the 2nd metacarpal and the musculature of the 1st- 2nd metacarpal interspace. No marrow replacement or enhancement. Orthopedic consultation is recommended. 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 She is presently coverage for possible strep, staph and MRSA. 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 We will continue vancomycin until cultures are resolved. We will change Ancef to clindamycin for better strep coverage. Also add Silvadene and Xeroform gauze dressings to dressing change. Consult general surgery for local wound management. (2) Cellulitis of right forearm Is this a current diagnosis for this admission?: Yes Plan: Continue current antibiotic therapy. (3) Cellulitis of right hand Is this a current diagnosis for this admission?: Yes (4) Hypernatremia Is this a current diagnosis for this admission?: Yes Plan: Patient is being hydrated with IV D5/half-normal saline most likely secondary to prerenal dehydration.Will restart tube feedings with free water 250 cc every 6 hrs (5) Acute kidney injury Is this a current diagnosis for this admission?: Yes Plan: Continue IV hydration most likely secondary to prerenal dehydration per (6) Dementia Qualifiers: Dementia type: unspecified type Dementia behavioral disturbance: without behavioral disturbance Qualified Code(s): F03.90 - Unspecified dementia without behavioral disturbance (8) Counseling regarding goals of care Is this a current diagnosis for this admission?: Yes Plan: Spoke with vania Lord, about her mother. She will talk to her brother and sister about code status. She was a DNR prior but then started doing better so they changed her to a full code. She will discuss with her siblings and let us know. - Time Time Spent with patient: 25-34 minutes Critical Time spent with patient: 15-24 minutes Medications reviewed and adjusted accordingly: Yes
[2017-06-13 09:15] LABS: PROTHROMBIN TIME 15.5 SEC (11.4-15.4)
[2017-06-13 09:16] LABS: FIBRINOGEN 446 mg/dL (209-497); PARTIAL THROMBOPLASTIN TIME 32.1 SEC (23.5-35.8)
[2017-06-13] MEDS: ENOXAPARIN SODIUM INJ 40 MG/0.4 ML DISP.SYRIN SUBCUT SCH (09:55)
[2017-06-13] MEDS: RISPERIDONE 1 MG TAB.RAPDIS PEG SCH (09:57)
[2017-06-13] MEDS: SILVER SULFADIAZINE 1% CREAM 50 GM TP SCH ×2 (09:57→18:22)
[2017-06-13] MEDS: POLYETHYLENE GLYCOL 3350 POWDER 17 GM/1 PACKET PEG SCH (09:57)
[2017-06-13] MEDS: FOLIC ACID 1 MG TABLET PEG SCH (09:57)
[2017-06-13] MEDS: DEXTROSE 5%-1/2 NORMAL SALINE 1,000 ML IV PRN ×2 (09:58→18:24)
[2017-06-13] MEDS ORDERED: (PENDING PHARMACY ID) (Risperidone [Risperdal] 2 MG) PEG SCH (10:00)
--- NOTE | 2017-06-13 14:12 | Progress Note ---
Provider Note Provider Note: Obtain consent from patient's daughter to obtain photographs and shared with dermatology. Spoke with Dr. Gonzalez of [facility], and he feels that her current course is appropriate and recommends continuing antibiotics and local wound care. He recommends biopsy and culture if bullae reappear, but not at this time especially not if improving.
[2017-06-13] MEDS: VANCOMYCIN HCL 1,000 MG in DEXTROSE 5%-WATER 250 ML IV SCH (20:30)
[2017-06-13] MEDS: MIRTAZAPINE 15 MG TABLET PEG SCH (21:42)
[2017-06-14] MEDS: IMIPENEM/CILASTATIN SODIUM 500 MG in NORMAL SALINE 100 ML IV SCH ×3 (05:18→17:10)
[2017-06-14] MEDS: CLINDAMYCIN 900 MG/D5W RTU 50 ML IV SCH ×3 (05:19→21:40)
[2017-06-14 05:42] LABS: ABSOLUTE EOSINOPHILS # (AUTO) 0.2 10^3/uL (0.0-0.6); ABSOLUTE MONOCYTES (AUTO) 0.7 10^3/uL (0.1-1.4); ABSOLUTE NEUT (AUTO) 4.1 10^3/uL (1.7-8.2); BASOPHILS % (AUTO) 0.2 % (0-2); EOSINOPHILS % (AUTO) 3.1 % (0-6); HEMATOCRIT 30.7 % (36.0-47.0); HEMOGLOBIN 9.9 g/dL (12.0-15.5); LYMPHOCYTES % (AUTO) 16.6 % (13-45); MEAN CORPUSCULAR HEMOGLOBIN 29.8 pg (27.0-33.4); MEAN CORPUSCULAR HGB CONC 32.3 g/dL (32.0-36.0); MEAN CORPUSCULAR VOLUME 92 fl (80-97); MONOCYTES % (AUTO) 11.3 % (3-13); RED BLOOD COUNT 3.33 10^6/uL (3.72-5.28); RED CELL DISTRIBUTION WIDTH 16.2 % (11.5-14.0); SEGMENTED NEUTROPHILS % (AUTO) 68.8 % (42-78); WHITE BLOOD COUNT 5.9 10^3/uL (4.0-10.5)
[2017-06-14 05:55] LABS: ALANINE AMINOTRANSFERASE 42 U/L (9-52); ALBUMIN 2.4 g/dL (3.5-5.0); ALKALINE PHOSPHATASE 126 U/L (38-126); ANION GAP 10 (5-19); ASPARTATE AMINO TRANSFERASE 90 U/L (14-36); BILIRUBIN,DIRECT 0.5 mg/dL (0.0-0.4); BILIRUBIN,TOTAL 0.8 mg/dL (0.2-1.3); BLOOD UREA NITROGEN 14 mg/dL (7-20); CALCIUM 8.1 mg/dL (8.4-10.2); CARBON DIOXIDE 25 mmol/L (22-30); CHLORIDE 111 mmol/L (98-107); CREATININE RESULT 0.76 mg/dL (0.52-1.25); GLUCOSE 133 mg/dL (75-110); MAGNESIUM 1.9 mg/dL (1.6-2.3); POTASSIUM 3.7 mmol/L (3.6-5.0); SODIUM 145.6 mmol/L (137-145); TOTAL PROTEIN 5.3 g/dL (6.3-8.2)
[2017-06-14] MEDS: DEXTROSE 5%-1/2 NORMAL SALINE 1,000 ML IV PRN ×2 (08:04→16:25)
[2017-06-14] MEDS: SILVER SULFADIAZINE 1% CREAM 50 GM TP SCH ×2 (09:58→17:10)
[2017-06-14] MEDS: RISPERIDONE 1 MG TAB.RAPDIS PEG SCH (09:58)
[2017-06-14] MEDS: POLYETHYLENE GLYCOL 3350 POWDER 17 GM/1 PACKET PEG SCH (09:58)
[2017-06-14] MEDS: FOLIC ACID 1 MG TABLET PEG SCH (09:58)
[2017-06-14] MEDS: ENOXAPARIN SODIUM INJ 40 MG/0.4 ML DISP.SYRIN SUBCUT SCH (09:58)
[2017-06-14] MEDS: METHYLPREDNISOLONE INJ 40 MG/1 ML SDV IV SCH ×2 (13:46→21:39)
--- NOTE | 2017-06-14 14:53 | PDOC PROGRESS REPORT ---
Subjective Progress Note for:: 06/14/17 Subjective:: Patient was seen on morning rounds. She is resting in bed. She had no issues with blood pressure overnight but now is hypotensive with systolic blood pressure of 80's mmhg. There is no family at bedside. She is verbally noncommunicative. She does move her upper extremities. Nothing to command. The dorsum of her hand is pink and granulating. She is also noted to have 2 blistered areas on her right upper thigh. Review of systems is unobtainable due to her present mentation. Physical Exam Vital Signs: Temp Pulse Resp BP Pulse Ox 98.2 F 83 22 H 109/66 93 06/14/17 14:00 06/14/17 09:35 06/14/17 14:23 06/14/17 14:23 06/14/17 14:23 Intake & Output 06/13/17 06/14/17 06/15/17 06:59 06:59 06:59 Intake Total 3260 3128 Output Total 1085 2240 515 Balance 2175 888 -515 Weight 75.1 kg 79.1 kg General appearance: PRESENT: no acute distress, obese, well-developed, well- nourished Head exam: PRESENT: atraumatic, normocephalic Eye exam: PRESENT: conjunctiva pink, EOMI, PERRLA. ABSENT: scleral icterus Ear exam: PRESENT: normal external ear exam Mouth exam: PRESENT: moist, tongue midline Neck exam: ABSENT: carotid bruit, JVD, lymphadenopathy, thyromegaly Respiratory exam: PRESENT: clear to auscultation sarah. ABSENT: rales, rhonchi, wheezes Cardiovascular exam: PRESENT: RRR. ABSENT: diastolic murmur, rubs, systolic murmur Pulses: PRESENT: normal carotid pulses Vascular exam: PRESENT: normal capillary refill GI/Abdominal exam: PRESENT: normal bowel sounds, soft. ABSENT: distended, guarding, mass, organolmegaly, rebound, tenderness Rectal exam: PRESENT: deferred Extremities exam: PRESENT: other - Right hand wrapped in gauze with no visible drainage Musculoskeletal exam: PRESENT: ambulatory Neurological exam: PRESENT: alert, awake, oriented to person, oriented to place , oriented to time, oriented to situation, CN II-XII grossly intact. ABSENT: motor sensory deficit Psychiatric exam: PRESENT: appropriate affect, normal mood. ABSENT: homicidal ideation, suicidal ideation Skin exam: PRESENT: dry, intact, warm. ABSENT: cyanosis, rash Results Laboratory Results: 06/14/17 05:25 06/14/17 05:25 06/14/17 06/14/17 05:25 05:25 WBC 5.9 RBC 3.33 L Hgb 9.9 L Hct 30.7 L MCV 92 MCH 29.8 MCHC 32.3 RDW 16.2 H Plt Count 152 Seg Neutrophils % 68.8 Lymphocytes % 16.6 Monocytes % 11.3 Eosinophils % 3.1 Basophils % 0.2 Absolute Neutrophils 4.1 Absolute Lymphocytes 1.0 Absolute Monocytes 0.7 Absolute Eosinophils 0.2 Absolute Basophils 0.0 Sodium 145.6 H Potassium 3.7 Chloride 111 H Carbon Dioxide 25 Anion Gap 10 BUN 14 Creatinine 0.76 Est GFR ( Amer) > 60 Est GFR (Non-Af Amer) > 60 Glucose 133 H Calcium 8.1 L Magnesium 1.9 Total Bilirubin 0.8 AST 90 H ALT 42 Alkaline Phosphatase 126 Total Protein 5.3 L Albumin 2.4 L Impressions: Hand X-Ray 06/11/17 19:47 IMPRESSION: Diffuse soft tissue swelling. No fracture, radiopaque foreign body , or soft tissue gas identified. Wrist X-Ray 06/11/17 19:48 IMPRESSION: Diffuse soft tissue swelling. No fracture, radiopaque foreign body or soft tissue gas. Chest X-Ray 06/12/17 00:00 IMPRESSION: NO ACUTE RADIOGRAPHIC FINDING IN THE CHEST. Upper Extremity MRI 06/12/17 07:00 IMPRESSION: Diffuse soft tissue swelling greater on the dorsum of the hand and wrist without focal defined enhancing fluid collection. There is mild enhancement seen in the dorsal soft tissues particularly around the 2nd metacarpal and the musculature of the 1st- 2nd metacarpal interspace. No marrow replacement or enhancement. Orthopedic consultation is recommended. Assessment & Plan - Diagnosis (1) Acute skin eruption of discoloration, elevations, blisters Is this a current diagnosis for this admission?: Yes Plan: Patient's case was discussed with [facility]. They recommended continuing with present treatment plan. Patient's blood cultures remain negative. She continues to have no leukocytosis. Urine culture is positive for gram-positive cocci. Patient has a new bulla on her right breast. She continues to have borderline to periods of hypotension requiring IV Levophed. IgG in the a.m. we will start IV steroids to see if there is improvement. (2) Cellulitis of right forearm Is this a current diagnosis for this admission?: Yes Plan: Continue current antibiotic therapy. (3) Cellulitis of right hand Is this a current diagnosis for this admission?: Yes (4) Hypernatremia Is this a current diagnosis for this admission?: Yes Plan: Patient is being hydrated with IV D5/half-normal saline most likely secondary to prerenal dehydration.Will restart tube feedings with free water 250 cc every 6 hrs (5) Acute kidney injury Is this a current diagnosis for this admission?: Yes Plan: Continue IV hydration most likely secondary to prerenal dehydration per (6) Dementia Qualifiers: Dementia type: unspecified type Dementia behavioral disturbance: without behavioral disturbance Qualified Code(s): F03.90 - Unspecified dementia without behavioral disturbance (8) Counseling regarding goals of care Is this a current diagnosis for this admission?: Yes Plan: Spoke with daughter Pop, about her mother. She will talk to her brother and sister about code status. She was a DNR prior but then started doing better so they changed her to a full code. She will discuss with her siblings and let us know. (9) UTI (urinary tract infection) Qualifiers: Urinary tract infection type: catheter-associated UTI Is this a current diagnosis for this admission?: Yes Plan: Urine culture is growing greater than 100,000 colonies of gram-positive cocci. Patient has history of recurrent UTIs. - Time Time Spent with patient: 25-34 minutes Critical Time spent with patient: 15-24 minutes Medications reviewed and adjusted accordingly: Yes Anticipated discharge: SNF
[2017-06-14] MEDS: VANCOMYCIN HCL 1,000 MG in DEXTROSE 5%-WATER 250 ML IV SCH (19:48)
[2017-06-14] MEDS: MIRTAZAPINE 15 MG TABLET PEG SCH (21:39)
[2017-06-15] MEDS: IMIPENEM/CILASTATIN SODIUM 500 MG in NORMAL SALINE 100 ML IV SCH ×5 (01:00→23:09)
[2017-06-15] MEDS: DEXTROSE 5%-1/2 NORMAL SALINE 1,000 ML IV PRN ×2 (03:35→15:39)
[2017-06-15] MEDS: METHYLPREDNISOLONE INJ 40 MG/1 ML SDV IV SCH ×3 (05:14→21:40)
[2017-06-15] MEDS: CLINDAMYCIN 900 MG/D5W RTU 50 ML IV SCH ×3 (05:14→21:39)
[2017-06-15 05:28] LABS: ABSOLUTE LYMPHOCYTES (AUTO) 0.5 10^3/uL (0.5-4.7); ABSOLUTE MONOCYTES (AUTO) 0.2 10^3/uL (0.1-1.4); ABSOLUTE NEUT (AUTO) 5.9 10^3/uL (1.7-8.2); BASOPHILS % (AUTO) 0.1 % (0-2); HEMATOCRIT 29.3 % (36.0-47.0); HEMOGLOBIN 9.6 g/dL (12.0-15.5); HGB HCT DIFFERENCE -0.5; LYMPHOCYTES % (AUTO) 7.9 % (13-45); MEAN CORPUSCULAR HEMOGLOBIN 29.3 pg (27.0-33.4); MEAN CORPUSCULAR HGB CONC 32.6 g/dL (32.0-36.0); MEAN CORPUSCULAR VOLUME 90 fl (80-97); MONOCYTES % (AUTO) 3.7 % (3-13); RED BLOOD COUNT 3.26 10^6/uL (3.72-5.28); RED CELL DISTRIBUTION WIDTH 16.6 % (11.5-14.0); SEGMENTED NEUTROPHILS % (AUTO) 88.3 % (42-78); WHITE BLOOD COUNT 6.7 10^3/uL (4.0-10.5)
[2017-06-15 05:53] LABS: ANION GAP 9 (5-19); BLOOD UREA NITROGEN 13 mg/dL (7-20); CARBON DIOXIDE 26 mmol/L (22-30); CHLORIDE 111 mmol/L (98-107); CREATININE RESULT 0.63 mg/dL (0.52-1.25); GLUCOSE 195 mg/dL (75-110); POTASSIUM 3.7 mmol/L (3.6-5.0); SODIUM 145.5 mmol/L (137-145)
--- NOTE | 2017-06-15 08:24 | PDOC PROGRESS REPORT ---
Subjective Progress Note for:: 06/15/17 Subjective:: Patient was seen on morning rounds. She is resting in bed, awake and more alert today. Nursing report no issues overnight. There is no family at bedside. She responds occasionally to questions. She does move her upper extremities. Nothing to command. She is tolerating enteral feedings and free water through PEG tube. Review of systems is unobtainable due to her present mentation. Physical Exam Vital Signs: Temp Pulse Resp BP Pulse Ox 98.5 F 86 25 H 105/57 L 97 06/15/17 07:45 06/15/17 08:05 06/15/17 06:05 06/15/17 06:05 06/15/17 06:05 Intake & Output 06/14/17 06/15/17 06/16/17 06:59 06:59 06:59 Intake Total 3128 4371 Output Total 2240 2410 160 Balance 888 1961 -160 Weight 79.1 kg 80.5 kg General appearance: PRESENT: no acute distress, obese, well-developed, well- nourished Head exam: PRESENT: atraumatic, normocephalic Eye exam: PRESENT: conjunctiva pink, EOMI, PERRLA. ABSENT: scleral icterus Ear exam: PRESENT: normal external ear exam Mouth exam: PRESENT: moist, tongue midline Teeth exam: PRESENT: edentulous Neck exam: ABSENT: carotid bruit, JVD, lymphadenopathy, thyromegaly Respiratory exam: PRESENT: clear to auscultation sarah, decreased breath sounds, symmetrical, unlabored Cardiovascular exam: PRESENT: RRR. ABSENT: diastolic murmur, rubs, systolic murmur Pulses: PRESENT: normal dorsalis pedis pul Vascular exam: PRESENT: normal capillary refill GI/Abdominal exam: PRESENT: normal bowel sounds, soft. ABSENT: distended, guarding, mass, organolmegaly, rebound, tenderness Rectal exam: PRESENT: deferred Extremities exam: PRESENT: full ROM. ABSENT: calf tenderness, clubbing, pedal edema Neurological exam: PRESENT: alert, awake, oriented to person, oriented to place , oriented to time, oriented to situation, CN II-XII grossly intact. ABSENT: motor sensory deficit Psychiatric exam: PRESENT: appropriate affect, normal mood. ABSENT: homicidal ideation, suicidal ideation Skin exam: PRESENT: dry, intact, warm. ABSENT: cyanosis, rash Results Laboratory Results: 06/15/17 05:25 06/15/17 05:25 06/15/17 06/15/17 06/15/17 05:25 05:25 05:25 WBC 6.7 RBC 3.26 L Hgb 9.6 L Hct 29.3 L MCV 90 MCH 29.3 MCHC 32.6 RDW 16.6 H Plt Count 152 Seg Neutrophils % 88.3 H Lymphocytes % 7.9 L Monocytes % 3.7 Eosinophils % 0.0 Basophils % 0.1 Absolute Neutrophils 5.9 Absolute Lymphocytes 0.5 Absolute Monocytes 0.2 Absolute Eosinophils 0.0 Absolute Basophils 0.0 Sodium 145.5 H Potassium 3.7 Chloride 111 H Carbon Dioxide 26 Anion Gap 9 BUN 13 Creatinine 0.63 Est GFR ( Amer) > 60 Est GFR (Non-Af Amer) > 60 Glucose 195 H Calcium 8.0 L Albumin Cancelled CSF Albumin Cancelled CSF IgG Cancelled Serum IgG Cancelled CSF IgG/Albumin Cancelled CSF Alb/Ser Alb Index Cancelled CSF IgG Index Cancelled CSF IgG Synthesis Rate Cancelled Impressions: Hand X-Ray 06/11/17 19:47 IMPRESSION: Diffuse soft tissue swelling. No fracture, radiopaque foreign body , or soft tissue gas identified. Wrist X-Ray 06/11/17 19:48 IMPRESSION: Diffuse soft tissue swelling. No fracture, radiopaque foreign body or soft tissue gas. Chest X-Ray 06/12/17 00:00 IMPRESSION: NO ACUTE RADIOGRAPHIC FINDING IN THE CHEST. Upper Extremity MRI 06/12/17 07:00 IMPRESSION: Diffuse soft tissue swelling greater on the dorsum of the hand and wrist without focal defined enhancing fluid collection. There is mild enhancement seen in the dorsal soft tissues particularly around the 2nd metacarpal and the musculature of the 1st- 2nd metacarpal interspace. No marrow replacement or enhancement. Orthopedic consultation is recommended. Assessment & Plan - Diagnosis (1) Acute skin eruption of discoloration, elevations, blisters Is this a current diagnosis for this admission?: Yes Plan: Patient's case was discussed with [facility]. They recommended continuing with present treatment plan. Patient's blood cultures remain negative. She continues to have no leukocytosis. Urine culture is positive for gram-positive cocci. Patient has a new bulla on her right breast. She continues to have borderline to periods of hypotension requiring IV Levophed. IgG in the a.m. we will start IV steroids to see if there is improvement. (2) Cellulitis of right forearm Is this a current diagnosis for this admission?: Yes Plan: Continue current antibiotic therapy. (3) Cellulitis of right hand Is this a current diagnosis for this admission?: Yes Plan: As above cultures continue to be negative (4) Hypernatremia Is this a current diagnosis for this admission?: Yes Plan: Patient is being hydrated with IV D5/half-normal saline most likely secondary to prerenal dehydration.Will restart tube feedings with free water 250 cc every 6 hrs (5) Acute kidney injury Is this a current diagnosis for this admission?: Yes Plan: Continue IV hydration most likely secondary to prerenal dehydration per (6) Dementia Qualifiers: Dementia type: unspecified type Dementia behavioral disturbance: without behavioral disturbance Qualified Code(s): F03.90 - Unspecified dementia without behavioral disturbance (7) History of MRSA infection Is this a current diagnosis for this admission?: Yes (8) Counseling regarding goals of care Is this a current diagnosis for this admission?: Yes Plan: Spoke with daughter Pop, about her mother. She will talk to her brother and sister about code status. She was a DNR prior but then started doing better so they changed her to a full code. She will discuss with her siblings and let us know. (9) UTI (urinary tract infection) Qualifiers: Urinary tract infection type: catheter-associated UTI Is this a current diagnosis for this admission?: Yes Plan: Urine culture is growing greater than 100,000 colonies of gram-positive cocci. Patient has history of recurrent UTIs. - Time Time Spent with patient: 25-34 minutes Critical Time spent with patient: 25-34 minutes Medications reviewed and adjusted accordingly: Yes Anticipated discharge: SNF
[2017-06-15] MEDS: SILVER SULFADIAZINE 1% CREAM 50 GM TP SCH ×2 (09:55→17:13)
[2017-06-15] MEDS: RISPERIDONE 1 MG TAB.RAPDIS PEG SCH (09:55)
[2017-06-15] MEDS: ENOXAPARIN SODIUM INJ 40 MG/0.4 ML DISP.SYRIN SUBCUT SCH (09:56)
[2017-06-15] MEDS: POLYETHYLENE GLYCOL 3350 POWDER 17 GM/1 PACKET PEG SCH (09:56)
[2017-06-15] MEDS: FOLIC ACID 1 MG TABLET PEG SCH (09:56)
[2017-06-15] MEDS: VANCOMYCIN HCL 750 MG in DEXTROSE 5%-WATER 250 ML IV SCH ×2 (11:35→23:09)
[2017-06-15] MEDS: MIRTAZAPINE 15 MG TABLET PEG SCH (21:39)
[2017-06-16] MEDS: DEXTROSE 5%-1/2 NORMAL SALINE 1,000 ML IV PRN (04:38)
[2017-06-16] MEDS: CLINDAMYCIN 900 MG/D5W RTU 50 ML IV SCH ×3 (05:31→22:12)
[2017-06-16] MEDS: IMIPENEM/CILASTATIN SODIUM 500 MG in NORMAL SALINE 100 ML IV SCH (05:31)
[2017-06-16] MEDS: METHYLPREDNISOLONE INJ 40 MG/1 ML SDV IV SCH ×3 (05:32→22:12)
[2017-06-16] MEDS ORDERED: DEXTROSE 5%-1/2 NORMAL SALINE 1,000 ML IV PRN (08:19)
[2017-06-16] MEDS ORDERED: CEFUROXIME 250 MG TABLET PO SCH (08:45)
--- NOTE | 2017-06-16 09:05 | PDOC PROGRESS REPORT ---
Subjective Progress Note for:: 06/16/17 Subjective:: Patient was seen on morning rounds. She is resting in bed, awake and more alert today. Nursing report no issues overnight. There is no family at bedside. She responds occasionally to questions. She does move her upper extremities. Nothing to command. She is tolerating enteral feedings and free water through PEG tube. Review of systems is unobtainable due to her present mentation. Physical Exam Vital Signs: Temp Pulse Resp BP Pulse Ox 98.3 F 76 17 124/54 L 96 06/16/17 07:54 06/16/17 07:54 06/16/17 07:54 06/16/17 07:54 06/16/17 07:54 Intake & Output 06/15/17 06/16/17 06/17/17 06:59 06:59 06:59 Intake Total 4371 4044 Output Total 2410 1615 120 Balance 1961 2429 -120 Weight 80.5 kg 82.7 kg General appearance: PRESENT: no acute distress, obese, well-developed, well- nourished Head exam: PRESENT: atraumatic, normocephalic Eye exam: PRESENT: conjunctiva pink, EOMI, PERRLA. ABSENT: scleral icterus Ear exam: PRESENT: normal external ear exam Mouth exam: PRESENT: moist, tongue midline Teeth exam: PRESENT: edentulous Neck exam: ABSENT: carotid bruit, JVD, lymphadenopathy, thyromegaly Respiratory exam: PRESENT: clear to auscultation sarah, symmetrical, unlabored. ABSENT: rales, rhonchi, wheezes Cardiovascular exam: PRESENT: RRR. ABSENT: diastolic murmur, rubs, systolic murmur Pulses: PRESENT: normal dorsalis pedis pul Vascular exam: PRESENT: normal capillary refill GI/Abdominal exam: PRESENT: normal bowel sounds, soft. ABSENT: distended, guarding, mass, organolmegaly, rebound, tenderness Rectal exam: PRESENT: deferred Extremities exam: PRESENT: +1 edema - bilateral pedal, other - bilateral lower extremities contracted, moves upper spontaneously Musculoskeletal exam: PRESENT: other Neurological exam: PRESENT: alert, altered, oriented to person, CN II-XII grossly intact Psychiatric exam: PRESENT: flat affect Skin exam: PRESENT: dry - Right wrist wrapped with kerlix. 10x 8cm on dorsum of the right hand and forearm wound granulating and pink. Right index fingernail fell off last night. Bulla on right thigh and breast show no signs of infection , warm, other Results Laboratory Results: 06/15/17 05:25 06/15/17 05:25 06/12/17 13:25 Catheterized Urine Urine Culture - Final Enterococcus Faecalis(Group D) 06/14/17 07:50 Nasophary ([facility] Only) MRSA Surveillance Culture - Final NO MRSA RECOVERED Impressions: Hand X-Ray 06/11/17 19:47 IMPRESSION: Diffuse soft tissue swelling. No fracture, radiopaque foreign body , or soft tissue gas identified. Wrist X-Ray 06/11/17 19:48 IMPRESSION: Diffuse soft tissue swelling. No fracture, radiopaque foreign body or soft tissue gas. Chest X-Ray 06/12/17 00:00 IMPRESSION: NO ACUTE RADIOGRAPHIC FINDING IN THE CHEST. Upper Extremity MRI 06/12/17 07:00 IMPRESSION: Diffuse soft tissue swelling greater on the dorsum of the hand and wrist without focal defined enhancing fluid collection. There is mild enhancement seen in the dorsal soft tissues particularly around the 2nd metacarpal and the musculature of the 1st- 2nd metacarpal interspace. No marrow replacement or enhancement. Orthopedic consultation is recommended. Assessment & Plan - Diagnosis (1) Acute skin eruption of discoloration, elevations, blisters Is this a current diagnosis for this admission?: Yes Plan: Patient's case was discussed with [facility]. They recommended continuing with present treatment plan. Patient's blood cultures remain negative. She continues to have no leukocytosis. Urine culture is positive for gram-positive cocci. Patient has a new bulla on her right breast. She continues to have borderline to periods of hypotension requiring IV Levophed. IgG in the a.m. we will start IV steroids to see if there is improvement. (2) Cellulitis of right forearm Is this a current diagnosis for this admission?: Yes Plan: Continue current antibiotic therapy. (3) Cellulitis of right hand Is this a current diagnosis for this admission?: Yes Plan: As above cultures continue to be negative (4) Hypernatremia Is this a current diagnosis for this admission?: Yes Plan: Improved with hydration will continue to monitor (5) Acute kidney injury Is this a current diagnosis for this admission?: Yes Plan: Resolved with hydration to baseline (6) Dementia Qualifiers: Dementia type: unspecified type Dementia behavioral disturbance: without behavioral disturbance Qualified Code(s): F03.90 - Unspecified dementia without behavioral disturbance Is this a current diagnosis for this admission?: Yes (7) History of MRSA infection Is this a current diagnosis for this admission?: Yes Plan: No signs of MRSA at present (8) Counseling regarding goals of care Is this a current diagnosis for this admission?: Yes Plan: Spoke with vania Lord, about her mother. She will talk to her brother and sister about code status. She was a DNR prior but then started doing better so they changed her to a full code. She will discuss with her siblings and let us know. (9) UTI (urinary tract infection) Qualifiers: Urinary tract infection type: catheter-associated UTI Is this a current diagnosis for this admission?: Yes Plan: Urine culture is growing greater than 100,000 colonies of gram-positive cocci. Patient has history of recurrent UTIs. - Time Time Spent with patient: 25-34 minutes Critical Time spent with patient: 15-24 minutes Medications reviewed and adjusted accordingly: Yes Anticipated discharge: SNF
[2017-06-16] MEDS ORDERED: CEFUROXIME 250 MG TABLET PEG SCH (09:06)
[2017-06-16] MEDS: POLYETHYLENE GLYCOL 3350 POWDER 17 GM/1 PACKET PEG SCH (09:53)
[2017-06-16] MEDS: RISPERIDONE 1 MG TAB.RAPDIS PEG SCH (09:53)
[2017-06-16] MEDS: FOLIC ACID 1 MG TABLET PEG SCH (09:53)
[2017-06-16] MEDS: ENOXAPARIN SODIUM INJ 40 MG/0.4 ML DISP.SYRIN SUBCUT SCH (09:54)
[2017-06-16] MEDS: SILVER SULFADIAZINE 1% CREAM 50 GM TP SCH ×2 (09:55→18:40)
[2017-06-16] MEDS ORDERED: CEFUROXIME 250 MG/5 ML SUSP 50 ML PEG SCH (10:00)
[2017-06-16] MEDS: AMPICILLIN SODIUM/SULBACTAM NA 3 GM in NORMAL SALINE 100 ML IV SCH (18:38)
[2017-06-16] MEDS: MIRTAZAPINE 15 MG TABLET PEG SCH (22:13)
[2017-06-17] MEDS: AMPICILLIN SODIUM/SULBACTAM NA 3 GM in NORMAL SALINE 100 ML IV SCH ×5 (00:24→23:49)
[2017-06-17 05:09] LABS: ANION GAP 9 (5-19); BLOOD UREA NITROGEN 18 mg/dL (7-20); CALCIUM 8.6 mg/dL (8.4-10.2); CARBON DIOXIDE 27 mmol/L (22-30); CHLORIDE 109 mmol/L (98-107); CREATININE RESULT 0.62 mg/dL (0.52-1.25); GLUCOSE 119 mg/dL (75-110); MAGNESIUM 2.2 mg/dL (1.6-2.3); POTASSIUM 3.8 mmol/L (3.6-5.0); SODIUM 144.7 mmol/L (137-145)
[2017-06-17] MEDS: CLINDAMYCIN 900 MG/D5W RTU 50 ML IV SCH ×3 (05:53→21:21)
[2017-06-17] MEDS: POLYETHYLENE GLYCOL 3350 POWDER 17 GM/1 PACKET PEG SCH (11:51)
[2017-06-17] MEDS: RISPERIDONE 1 MG TAB.RAPDIS PEG SCH (11:51)
[2017-06-17] MEDS: FOLIC ACID 1 MG TABLET PEG SCH (11:51)
[2017-06-17] MEDS: SILVER SULFADIAZINE 1% CREAM 50 GM TP SCH ×2 (11:52→18:40)
[2017-06-17] MEDS: ENOXAPARIN SODIUM INJ 40 MG/0.4 ML DISP.SYRIN SUBCUT SCH (11:52)
[2017-06-17] MEDS ORDERED: METHYLPREDNISOLONE INJ 40 MG/1 ML SDV IV ONE (12:30)
[2017-06-17] MEDS: NORMAL SALINE INJ/PF 0.9% 10 ML SDV IV PRN ×2 (15:33→21:21)
--- NOTE | 2017-06-17 16:40 | PDOC PROGRESS REPORT ---
Subjective Progress Note for:: 06/17/17 Subjective:: Patient reports she is feeling well. Seen with nurse at bedside Patient denies chest pain, shortness of breath, nausea, vomiting, hand pain. Patient is actively trying to remove her bandage with her teeth when I come in the room Physical Exam Vital Signs: Temp Pulse Resp BP Pulse Ox 97.6 F 73 23 H 142/74 H 97 06/17/17 11:10 06/17/17 11:10 06/17/17 11:10 06/17/17 11:10 06/17/17 11:10 Intake & Output 06/16/17 06/17/17 06/18/17 06:59 06:59 06:59 Intake Total 4044 2343 295 Output Total 1615 1249 450 Balance 2429 1094 -155 Weight 82.7 kg 78.5 kg Exam: General: Awake alert and oriented x1, no acute respiratory distress HEENT: AT/NC, PERRL, EOMI, oropharynx is moist, pink, no scleral icterus, no conjunctival injection Neck: No JVD, trachea midline Chest: Clear to auscultation bilaterally, no wheezes rhonchi or rales CV: Regular rate and rhythm, normal S1 and S2, no murmur, rub, or gallop Abdomen: Soft, nontender to palpation, nondistended, active bowel sounds; no rebound, rigidity, or guarding Extremities: No cyanosis, clubbing or edema Neuro: Cranial nerves II through XII are grossly intact without focal deficits; awake alert and oriented x1 Psych: pleasant mood and affect Skin: Complete denuding of right fifth finger, and dorsum of the hand to the level of the wrist, pink will granulated base Results Laboratory Results: 06/15/17 05:25 06/17/17 04:45 06/15/17 06/17/17 05:25 04:45 Sodium 144.7 Potassium 3.8 Chloride 109 H Carbon Dioxide 27 Anion Gap 9 BUN 18 Creatinine 0.62 Est GFR ( Amer) > 60 Est GFR (Non-Af Amer) > 60 Glucose 119 H Calcium 8.6 Magnesium 2.2 Albumin Cancelled CSF Albumin Cancelled CSF IgG Cancelled Serum IgG Cancelled CSF IgG/Albumin Cancelled CSF Alb/Ser Alb Index Cancelled CSF IgG Index Cancelled CSF IgG Synthesis Rate Cancelled Impressions: Hand X-Ray 06/11/17 19:47 IMPRESSION: Diffuse soft tissue swelling. No fracture, radiopaque foreign body , or soft tissue gas identified. Wrist X-Ray 06/11/17 19:48 IMPRESSION: Diffuse soft tissue swelling. No fracture, radiopaque foreign body or soft tissue gas. Chest X-Ray 06/12/17 00:00 IMPRESSION: NO ACUTE RADIOGRAPHIC FINDING IN THE CHEST. Upper Extremity MRI 06/12/17 07:00 IMPRESSION: Diffuse soft tissue swelling greater on the dorsum of the hand and wrist without focal defined enhancing fluid collection. There is mild enhancement seen in the dorsal soft tissues particularly around the 2nd metacarpal and the musculature of the 1st- 2nd metacarpal interspace. No marrow replacement or enhancement. Orthopedic consultation is recommended. Assessment & Plan - Diagnosis (1) Blisters of multiple sites Is this a current diagnosis for this admission?: Yes Plan: No blisters currently (2) Cellulitis of right forearm Is this a current diagnosis for this admission?: Yes Plan: Has been transitioned to clindamycin and Unasyn. Improving but will require extensive wound care (3) Cellulitis of right hand Is this a current diagnosis for this admission?: Yes (4) Hypernatremia Is this a current diagnosis for this admission?: Yes Plan: Improved continue free water (5) UTI (urinary tract infection) Qualifiers: Urinary tract infection type: catheter-associated UTI Indwelling urinary catheter type: indwelling urethral catheter Encounter type: subsequent encounter Qualified Code(s): T83.511D - Infection and inflammatory reaction due to indwelling urethral catheter, subsequent encounter; N39.0 - Urinary tract infection, site not specified Is this a current diagnosis for this admission?: Yes Plan: Patient with Enterococcus faecalis group D Patient appears to chronically require catheterization when hospitalized due to acute urinary retention. Will attempt to remove Perez today. (6) Advanced dementia Is this a current diagnosis for this admission?: Yes Plan: Resides at group home (7) Acute kidney failure Qualifiers: Acute renal failure type: unspecified Qualified Code(s): N17.9 - Acute kidney failure, unspecified Is this a current diagnosis for this admission?: Yes Plan: Improved with hydration (8) Ambulatory dysfunction Is this a current diagnosis for this admission?: Yes Plan: Is chronically bedbound and debilitated - Time Time Spent with patient: 25-34 minutes Medications reviewed and adjusted accordingly: Yes Anticipated discharge: SNF Within: within 48 hours
[2017-06-17] MEDS: MIRTAZAPINE 15 MG TABLET PEG SCH (21:21)
[2017-06-18 05:23] LABS: ABSOLUTE LYMPHOCYTES (AUTO) 1.6 10^3/uL (0.5-4.7); ABSOLUTE MONOCYTES (AUTO) 0.9 10^3/uL (0.1-1.4); ABSOLUTE NEUT (AUTO) 5.5 10^3/uL (1.7-8.2); BASOPHILS % (AUTO) 0.1 % (0-2); EOSINOPHILS % (AUTO) 0.2 % (0-6); HEMOGLOBIN 10.4 g/dL (12.0-15.5); HGB HCT DIFFERENCE -0.8; LYMPHOCYTES % (AUTO) 20.1 % (13-45); MEAN CORPUSCULAR HEMOGLOBIN 29.6 pg (27.0-33.4); MEAN CORPUSCULAR HGB CONC 32.6 g/dL (32.0-36.0); MEAN CORPUSCULAR VOLUME 91 fl (80-97); RED BLOOD COUNT 3.52 10^6/uL (3.72-5.28); RED CELL DISTRIBUTION WIDTH 16.3 % (11.5-14.0); SEGMENTED NEUTROPHILS % (AUTO) 68.6 % (42-78)
[2017-06-18 05:29] LABS: ANION GAP 10 (5-19); BLOOD UREA NITROGEN 23 mg/dL (7-20); CALCIUM 8.5 mg/dL (8.4-10.2); CARBON DIOXIDE 28 mmol/L (22-30); CHLORIDE 108 mmol/L (98-107); CREATININE RESULT 0.63 mg/dL (0.52-1.25); GLUCOSE 100 mg/dL (75-110); POTASSIUM 3.7 mmol/L (3.6-5.0); SODIUM 146.3 mmol/L (137-145)
[2017-06-18] MEDS: CLINDAMYCIN 900 MG/D5W RTU 50 ML IV SCH (05:37)
[2017-06-18] MEDS: AMPICILLIN SODIUM/SULBACTAM NA 3 GM in NORMAL SALINE 100 ML IV SCH (06:29)
[2017-06-18] MEDS ORDERED: METHYLPREDNISOLONE INJ 40 MG/1 ML SDV IV SCH (10:00)
[2017-06-18] MEDS: ENOXAPARIN SODIUM INJ 40 MG/0.4 ML DISP.SYRIN SUBCUT SCH (11:16)
[2017-06-18] MEDS: DOXYCYCLINE HYCLATE 100 MG TABLET PO SCH ×2 (11:16→22:26)
[2017-06-18] MEDS: FOLIC ACID 1 MG TABLET PEG SCH (11:16)
[2017-06-18] MEDS: PREDNISONE 20 MG TABLET PEG SCH (11:17)
[2017-06-18] MEDS: RISPERIDONE 1 MG TAB.RAPDIS PEG SCH (11:18)
[2017-06-18] MEDS: SILVER SULFADIAZINE 1% CREAM 50 GM TP SCH ×2 (11:20→18:13)
[2017-06-18] MEDS: POLYETHYLENE GLYCOL 3350 POWDER 17 GM/1 PACKET PEG SCH (11:29)
--- NOTE | 2017-06-18 14:01 | PDOC PROGRESS REPORT ---
Subjective Progress Note for:: 06/18/17 Subjective:: Patient was seen on morning rounds. She is resting in bed, awake and more alert today. Nursing report no issues overnight. There is no family at bedside. She responds occasionally to questions. She does move her upper extremities. Nothing to command. She is tolerating enteral feedings and free water through PEG tube. Review of systems is unobtainable due to her present mentation. Physical Exam Vital Signs: Temp Pulse Resp BP Pulse Ox 98.4 F 69 18 123/69 96 06/18/17 07:53 06/18/17 09:17 06/18/17 09:17 06/18/17 07:53 06/18/17 09:17 Intake & Output 06/17/17 06/18/17 06/19/17 06:59 06:59 06:59 Intake Total 2343 1992 Output Total 1249 750 Balance 1094 1242 Weight 78.5 kg 83.5 kg General appearance: PRESENT: no acute distress, obese, well-developed, well- nourished Head exam: PRESENT: atraumatic, normocephalic Eye exam: PRESENT: conjunctiva pink, EOMI, PERRLA. ABSENT: scleral icterus Ear exam: PRESENT: normal external ear exam Mouth exam: PRESENT: moist, tongue midline Neck exam: ABSENT: carotid bruit, JVD, lymphadenopathy, thyromegaly Respiratory exam: PRESENT: clear to auscultation sarah. ABSENT: rales, rhonchi, wheezes Pulses: PRESENT: normal dorsalis pedis pul Vascular exam: PRESENT: normal capillary refill GI/Abdominal exam: PRESENT: normal bowel sounds, soft. ABSENT: distended, guarding, mass, organolmegaly, rebound, tenderness Rectal exam: PRESENT: deferred Extremities exam: PRESENT: +1 edema - bilateral pedal edema, Lower extremities contracted. Upper extremities move spontaneously, other. ABSENT: calf tenderness, clubbing, pedal edema Musculoskeletal exam: PRESENT: other Neurological exam: PRESENT: alert, awake, oriented to person, oriented to place , oriented to time, oriented to situation, CN II-XII grossly intact. ABSENT: motor sensory deficit Psychiatric exam: PRESENT: flat affect. ABSENT: homicidal ideation, suicidal ideation Skin exam: PRESENT: dry, warm, other Results Laboratory Results: 06/18/17 04:45 06/18/17 04:45 06/18/17 06/18/17 04:45 04:45 WBC 8.0 RBC 3.52 L Hgb 10.4 L Hct 32.0 L MCV 91 MCH 29.6 MCHC 32.6 RDW 16.3 H Plt Count 174 Seg Neutrophils % 68.6 Lymphocytes % 20.1 Monocytes % 11.0 Eosinophils % 0.2 Basophils % 0.1 Absolute Neutrophils 5.5 Absolute Lymphocytes 1.6 Absolute Monocytes 0.9 Absolute Eosinophils 0.0 Absolute Basophils 0.0 Sodium 146.3 H Potassium 3.7 Chloride 108 H Carbon Dioxide 28 Anion Gap 10 BUN 23 H Creatinine 0.63 Est GFR ( Amer) > 60 Est GFR (Non-Af Amer) > 60 Glucose 100 Calcium 8.5 Impressions: Hand X-Ray 06/11/17 19:47 IMPRESSION: Diffuse soft tissue swelling. No fracture, radiopaque foreign body , or soft tissue gas identified. Wrist X-Ray 06/11/17 19:48 IMPRESSION: Diffuse soft tissue swelling. No fracture, radiopaque foreign body or soft tissue gas. Chest X-Ray 06/12/17 00:00 IMPRESSION: NO ACUTE RADIOGRAPHIC FINDING IN THE CHEST. Upper Extremity MRI 06/12/17 07:00 IMPRESSION: Diffuse soft tissue swelling greater on the dorsum of the hand and wrist without focal defined enhancing fluid collection. There is mild enhancement seen in the dorsal soft tissues particularly around the 2nd metacarpal and the musculature of the 1st- 2nd metacarpal interspace. No marrow replacement or enhancement. Orthopedic consultation is recommended. Assessment & Plan - Diagnosis (1) Acute skin eruption of discoloration, elevations, blisters Is this a current diagnosis for this admission?: Yes Plan: Patient's case was discussed with [facility] dermatology. They recommended continuing with present treatment plan. Patient's blood cultures remain negative. She continues to have no leukocytosis. Urine culture is positive for gram-positive cocci. Patient has a new bulla on her right breast. She continues to have borderline to periods of hypotension requiring IV Levophed. IgG in the a.m. we will start IV steroids to see if there is improvement. (2) Cellulitis of right forearm Is this a current diagnosis for this admission?: Yes Plan: Continue current antibiotic therapy. (3) Cellulitis of right hand Is this a current diagnosis for this admission?: Yes Plan: As above cultures continue to be negative (4) Hypernatremia Is this a current diagnosis for this admission?: Yes Plan: Improved with hydration will continue to monitor (5) Acute kidney injury Is this a current diagnosis for this admission?: Yes Plan: Resolved with hydration to baseline (6) Dementia Qualifiers: Dementia type: unspecified type Dementia behavioral disturbance: without behavioral disturbance Qualified Code(s): F03.90 - Unspecified dementia without behavioral disturbance Is this a current diagnosis for this admission?: Yes (7) History of MRSA infection Is this a current diagnosis for this admission?: Yes Plan: No signs of MRSA at present (8) Counseling regarding goals of care Is this a current diagnosis for this admission?: Yes Plan: Spoke with daughter Pop, about her mother. She will talk to her brother and sister about code status. She was a DNR prior but then started doing better so they changed her to a full code. She will discuss with her siblings and let us know. (9) UTI (urinary tract infection) Qualifiers: Urinary tract infection type: catheter-associated UTI Indwelling urinary catheter type: indwelling urethral catheter Encounter type: subsequent encounter Qualified Code(s): T83.511D - Infection and inflammatory reaction due to indwelling urethral catheter, subsequent encounter; N39.0 - Urinary tract infection, site not specified Is this a current diagnosis for this admission?: Yes Plan: Urine culture is growing greater than 100,000 colonies of gram-positive cocci. Patient has history of recurrent UTIs. - Time Time Spent with patient: 25-34 minutes Critical Time spent with patient: 15-24 minutes Medications reviewed and adjusted accordingly: Yes Anticipated discharge: SNF Within: within 24 hours
[2017-06-18] MEDS: MIRTAZAPINE 15 MG TABLET PEG SCH (22:26)
--- NOTE | 2017-06-19 09:19 | PDOC TRANSFER SUMMARY ---
General - Admit/Disc Date/PCP Admission Date/Primary Care Provider: 06/12/17 03:18 KAM WILEY, Discharge Date: 06/19/17 - Discharge Diagnosis (1) Cellulitis of right forearm Is this a current diagnosis for this admission?: Yes Summary: Cultures never grew any organisms Treated empirically covering strep/staph. (2) UTI (urinary tract infection) Is this a current diagnosis for this admission?: Yes Summary: Patient had klebsiella enterococcus. She will need complete antibiotic therapy through PEG tube (3) Cellulitis of right hand Is this a current diagnosis for this admission?: Yes (4) Acute kidney injury Is this a current diagnosis for this admission?: Yes (5) Hypernatremia Is this a current diagnosis for this admission?: Yes Summary: Secondary to dehydration. Continue free water flushes 30 cc every 4 hrs through PEG tube. Patient is able to take po liquids as well. Needs nursing encouragement and supervision (6) Acute skin eruption of discoloration, elevations, blisters Is this a current diagnosis for this admission?: Yes Summary: Continue local wound care with silvadene cream two times daily. Follow up with wound care clinic. Wound is pink and granulating. No discharge. She has been afebrile with normal white count. Possible pemphigoid. She had bulla on her right thigh and right breast. She was given a trial of steriods (7) Dementia Is this a current diagnosis for this admission?: Yes Summary: Patient does recognize family members at time. She is contracted in her lower extremities. Needs frequent repositioning (8) Counseling regarding goals of care Is this a current diagnosis for this admission?: Yes (9) History of MRSA infection Is this a current diagnosis for this admission?: Yes - Additional Information Resuscitation Status: Full Code Discharge Diet: Tube Feeding (Comments), Other (Comments) - Free water flushes 30 cc every 4 hrs Discharge Activity: Activity As Tolerated, Balance Activity w/Rest Home Medications: Albuterol Sulfate [Ventolin Hfa] 2 puff IH Q4HP PRN 06/12/17 Carvedilol [Coreg 25 mg Tablet] 25 mg PEG Q12 06/12/17 Folic Acid [Folvite 1 mg Tablet] 1 mg PEG DAILY 06/12/17 Ipratropium/Albuterol Sulfate [Duoneb 3 ml Ampul] 3 ml NEB RTQ4HP PRN 06/12/17 Mirtazapine [Remeron 15 mg Tablet] 15 mg PEG QHS 06/12/17 Risperidone [Risperdal] 2 mg PEG DAILY 06/12/17 Doxycycline Hyclate [Vibramycin 100 mg Tablet] 100 mg PO Q12 #10 tablet Oxycodone HCl [Oxy-Ir 5 mg Tablet] 5 mg PEG Q4HP PRN #18 tablet 06/19/17 Polyethylene Glycol 3350 [Miralax Powder 17 gm/Packet] 17 gm PEG DAILY powd.pack 06/19/17 Prednisone [Deltasone 20 mg Tablet] 20 mg PEG DAILY #5 tablet 06/19/17 Silver Sulfadiazine [Silvadene 1% Cream 50 gm] 1 applic TP BID #0 tube 06/19/17 History of Present Illness Admission Date/PCP: 06/12/17 03:18 KAM WILEY, Patient complains of: Skin infection right hand History of Present Illness: URSULA RAMOS is a 77 year old -[place] female resident of [facility], severe underlying dementia, bedbound, with chronic contractures and chronically nonverbal, who presents to the emergency room for evaluation of above complaints. Patient has been discussed with emergency room nurse practitioner who evaluated the patient. Nurse practitioner did discuss the patient prior to formal admission with on-call orthopedist, Dr. Lieberman who recommended MRI, which has been ordered. MRI not available at the time of day for initially recommended; orthopedist aware. Patient is completely nonverbal and noninteractive with her surroundings and is able to provide no history whatsoever in terms of acute or chronic events, review of systems, personal habits, family history, etc. No friends or family are present. Old inpatient records are reviewed. Patient was seen in the emergency room on 06/11/2017 for blisters on her right hand. Started on Keflex. Brought back to the emergency room when currently the soft tissue swelling and blistering worsened. No further information available this point in time. Hospitalized under the care of his previous primary care provider the through 04 November of this year with final diagnoses including urinary tract infection due to enterococcus, hypernatremia, metabolic encephalopathy, and advanced dementia. Notation is made in her transfer summary that "with slow correction of the serum sodium patient regained full consciousness and alertness." History and physical and discharge summary have been reviewed. At the time of the above transfer, she was DNR status, but according to nursing staff discussion with daughter, who was present earlier, patient is now full code. Dictation via voice recognition software. Laboratory results are listed in [facility] and are reviewed. X-ray summary results are listed below, with full report(s) reviewed. . Social history/personal habits: Advanced dementia. Nonverbal. Resident of [facility]. No further information available this point in time. No known drug allergies. Home medications initially autopopulated into [facility] [employer] may not accurately reflect patient's true medications, dosages, and/or frequencies. criminalist technician to reconcile medications. Unfortunately, patient not able to provide any information relating to medications/dosages/frequencies. REVIEW OF SYSTEMS: See history and present illness. No further information available this point in time. PHYSICAL EXAMINATION: Neither height nor weight are recorded on the chart. Blood pressure 102/61. Pulse 92 and regular. 100% saturation on room air. Respirations are 24 and unlabored. Temperature 98.4. Slightly obese otherwise well-developed elderly -[place] female appearing approximately her stated age. Does not respond to name. Minimal grimace with trapezius pinch. Keeps eyes closed. Not interactive with her surroundings. Maintaining airway well. Skin is warm and dry. No grossly obvious evidence of rash in areas of skin examined. No subcutaneous nodules palpated. See comments under "extremities" below. ENT: Hearing cannot be adequately evaluated due to her mental status. Eyes: Cannot be adequately evaluated, due to patient closing eyelids tightly when examination attempted. No raccoon eyes. Neck is nontender to palpation. Midline trachea. No palpable thyroid nodule mass enlargement or tenderness. Lymphatic: No palpable cervical or clavicular nodes. Neck and lymphatic exams limited by patient body habitus. Psychiatric: Cannot be adequately evaluated due to her current status. Lungs: Auscultation reveals clear and equal breath sounds bilaterally. No use of accessory respiratory muscles. Cardiovascular: Heart regular rate and rhythm, without gallop murmur or rub. No carotid or abdominal aortic bruits. Bilateral symmetric slightly pitting calf ankle and pedal edema, a bit more pronounced on the dorsum of each foot. Not sure I can palpate dorsalis pedis and posterior tibial pulses on either side , but acceptable capillary refill at toes. Feet are warm and dry. Abdomen:soft slightly distended nontender with positive bowel sounds. Unable to adequately evaluate abdomen for masses or organomegaly due to distention. PEG tube site looks good, without evidence of infection or excessive drainage. Extremities: No calf tenderness to compression. Flexion contractures at knees and hips bilaterally. Examination of the right upper extremity reveals mild to moderate soft tissue swelling extending from the distal half of the forearm through her fingers. Both intact and ruptured blisters noted. Moderate-sized intact blister on the palm of her hand. Serosanguineous fluid appears to be inside. No obvious gross purulence. Mild cellulitis and warmth in the area of soft tissue swelling. No crepitus. Palpable right radial pulse. Neurologic: Absent Babinski. Light touch cannot be adequately evaluated due to her current status. Hospital Course Hospital Course: Patient was admitted to the hospitalist service on telemetry. She was started on broad-spectrum IV antibiotics after blood cultures 2 were obtained. General surgery was consulted for large bulla on the dorsum and plantar surface of her right hand. She was noted to have a 10 cm x4 cm area of pink open granulating tissue on the dorsum of her right hand and wrist. There is no drainage or discharge from the wound. Dr. Gonzales, general surgeon, was consulted to evaluate the wound. He debrided tissue from the wound and aspirated a large bulla. Following day the patient was noted to have low blood pressure with systolic reading in the 90s. She was given IV fluid bolus with some improvement in her blood pressure. Later that day she dropped her pressure into the 80s systolic. She was transferred to intensive care for IV norepinephrine therapy. Her family was consulted regarding goals for care. They decided they wanted to continue with aggressive care. Her hydration improved. Her hyponatremia resolved towards baseline. Acute change kidney injury resolved with IV hydration. She continued to have bulla on her right thigh and right breast. Possibility of pemphigoid syndrome was discussed. Patient was given trial of IV Solu-Medrol. There is noted improvement in her blood pressure. Blood cultures remained negative. Urine culture was positive for Klebsiella enterococcus. She was treated with appropriate antibiotics. Her enteral feedings were at goal. She was able to be transitioned to the IMCU unit on telemetry. She has been stable over the last 3 days. She is ready for discharge back to [facility]. Nursing needs to be diligent with increasing her oral intake and free water flushes through her PEG tube as ordered. Physical Exam Vital Signs: Temp Pulse Resp BP Pulse Ox 98.6 F 84 20 131/72 H 100 06/19/17 08:20 06/19/17 08:20 06/19/17 08:20 06/19/17 08:20 06/19/17 08:20 Intake & Output 06/18/17 06/19/17 06/20/17 06:59 06:59 06:59 Intake Total 1992 1172 Output Total 750 Balance 1242 1172 Weight 83.5 kg 82.3 kg General appearance: PRESENT: no acute distress, obese, well-developed, well- nourished Head exam: PRESENT: atraumatic, normocephalic Eye exam: PRESENT: conjunctiva pink, EOMI, PERRLA. ABSENT: scleral icterus Ear exam: PRESENT: normal external ear exam Mouth exam: PRESENT: moist, tongue midline Teeth exam: PRESENT: edentulous Neck exam: ABSENT: carotid bruit, JVD, lymphadenopathy, thyromegaly Respiratory exam: PRESENT: clear to auscultation sarah. ABSENT: rales, rhonchi, wheezes Cardiovascular exam: PRESENT: RRR. ABSENT: diastolic murmur, rubs, systolic murmur Pulses: PRESENT: normal carotid pulses Vascular exam: PRESENT: normal capillary refill GI/Abdominal exam: PRESENT: normal bowel sounds, soft. ABSENT: distended, guarding, mass, organolmegaly, rebound, tenderness Rectal exam: PRESENT: deferred Extremities exam: PRESENT: full ROM. ABSENT: calf tenderness, clubbing, pedal edema Musculoskeletal exam: PRESENT: deformity - Bilateral lower extremities are contracted. She does move upper extremity spontaneous.. Right hand and wrist is dressed, other Neurological exam: PRESENT: alert, altered, awake, CN II-XII grossly intact, other - Patient is occasionally verbal with her family. Rarely with nursing staff. Psychiatric exam: PRESENT: flat affect Skin exam: PRESENT: dry - Patient has a right hand and wrist wound on the dorsum of the hand that involves the right fifth finger and the plantar side of her right hand. She has wound on her right thigh from large bulla that has ruptured. There is no signs of continued cellulitis., warm, other Results Laboratory Results: 06/18/17 04:45 06/18/17 04:45 Impressions: Hand X-Ray 06/11/17 19:47 IMPRESSION: Diffuse soft tissue swelling. No fracture, radiopaque foreign body , or soft tissue gas identified. Wrist X-Ray 06/11/17 19:48 IMPRESSION: Diffuse soft tissue swelling. No fracture, radiopaque foreign body or soft tissue gas. Chest X-Ray 06/12/17 00:00 IMPRESSION: NO ACUTE RADIOGRAPHIC FINDING IN THE CHEST. Upper Extremity MRI 06/12/17 07:00 IMPRESSION: Diffuse soft tissue swelling greater on the dorsum of the hand and wrist without focal defined enhancing fluid collection. There is mild enhancement seen in the dorsal soft tissues particularly around the 2nd metacarpal and the musculature of the 1st- 2nd metacarpal interspace. No marrow replacement or enhancement. Orthopedic consultation is recommended. Transfer Plan - Disposition Transfer Plan: Return to [facility]. - Time Spent with Patient Time spent with patient: Less than 30 Minutes Qualifiers PATEINT BEING DISCHARGED WITH ANY OF THE FOLLOWING DIAGNOSIS?: No
[2017-06-19] MEDS: PREDNISONE 20 MG TABLET PEG SCH (10:32)
[2017-06-19] MEDS: DOXYCYCLINE HYCLATE 100 MG TABLET PO SCH (10:33)
[2017-06-19] MEDS: FOLIC ACID 1 MG TABLET PEG SCH (10:33)
[2017-06-19] MEDS: RISPERIDONE 1 MG TAB.RAPDIS PEG SCH (10:37)
[2017-06-19] MEDS: ENOXAPARIN SODIUM INJ 40 MG/0.4 ML DISP.SYRIN SUBCUT SCH (10:38)
[2017-06-19] MEDS: POLYETHYLENE GLYCOL 3350 POWDER 17 GM/1 PACKET PEG SCH (12:56)
[2017-06-19 13:47] VITALS: BP 129/66
[2017-06-19] MEDS: SILVER SULFADIAZINE 1% CREAM 50 GM TP SCH (15:21)
== END 2017-06-19 17:09 | DRG 603 ==
LOC: ER 18:38 → EH 06-12 01:00 → UNDOADMIN 06-12 01:00 → EH 06-12 03:18 → 3S 06-12 03:27 → EH 06-12 03:27 → 5 06-12 08:59 → ICU 06-12 21:09 → 3S 06-16 14:30
PROVIDERS: ADMIT Family Medicine; ATTEND Family Medicine
PROC: 3E0F73Z Introduction of Anti-inflammatory into Respiratory Tract, Via Natural or Artificial Opening (ICD-10-PCS; principal; 2017-06-12)
PROC: 02HV33Z Insertion of Infusion Device into Superior Vena Cava, Percutaneous Approach (ICD-10-PCS; 2017-06-12)
PROC: 3E0234Z Introduction of Serum, Toxoid and Vaccine into Muscle, Percutaneous Approach (ICD-10-PCS; 2017-06-19)
DX: L03.113 Cellulitis of right upper limb (principal); T83.511A Infection and inflammatory reaction due to indwelling urethral catheter, initial encounter; N39.0 Urinary tract infection, site not specified; N17.9 Acute kidney failure, unspecified; E87.0 Hyperosmolality and hypernatremia; B96.1 Klebsiella pneumoniae [K. pneumoniae] as the cause of diseases classified elsewhere; E86.0 Dehydration; F03.90 Unspecified dementia, unspecified severity, without behavioral disturbance, psychotic disturbance, mood disturbance, and anxiety; R23.8 Other skin changes; I10 Essential (primary) hypertension; J44.9 Chronic obstructive pulmonary disease, unspecified; M19.90 Unspecified osteoarthritis, unspecified site; F31.9 Bipolar disorder, unspecified; Z78.1 Physical restraint status; Z23 Encounter for immunization; Z86.14 Personal history of Methicillin resistant Staphylococcus aureus infection; Z79.899 Other long term (current) drug therapy; Z74.01 Bed confinement status; S50.821A Blister (nonthermal) of right forearm, initial encounter; S60.521A Blister (nonthermal) of right hand, initial encounter; L00 Staphylococcal scalded skin syndrome; L49.0 Exfoliation due to erythematous condition involving less than 10 percent of body surface; N64.59 Other signs and symptoms in breast; Z93.1 Gastrostomy status
CPT/HCPCS: 36415; 51701; 71010; 80048; 80053; 80202; 81001; 82533; 82784; 82803; 82962; 83605; 83615; 83735; 85025; 85362; 85384; 85610; 85652; 85730; 86140; 87040; 87070; 87086; 87088; 87186; 87205; 90715; 96365; 96367; 99284; 99285; A9576; C1751; J0295; J0690; J0743; J1642; J1650; J2270; J2920; J3370; J3490; J7030; J7060; J7512

== ENCOUNTER 2017-09-08 12:16 | Emergency (ER) | payer MEDICARE, MEDICAID ==
--- NOTE | 2017-09-08 13:08 | RADIOLOGY REPORT (SQ) ---
EXAM DESCRIPTION: CHEST SINGLE VIEW COMPLETED DATE/TIME: 09/08/2017 12:59 pm REASON FOR STUDY: Hypoxemia COMPARISON: 06/12/2017 EXAM PARAMETERS: NUMBER OF VIEWS: One view. TECHNIQUE: Single frontal radiographic view of the chest acquired. RADIATION DOSE: NA LIMITATIONS: None. FINDINGS: LUNGS AND PLEURA: No opacities, masses or pneumothorax. No pleural effusion. MEDIASTINUM AND HILAR STRUCTURES: No masses. Contour normal. HEART AND VASCULAR STRUCTURES: Heart normal in size. Normal vasculature. BONES: No acute findings. HARDWARE: None in the chest. OTHER: No other significant finding. IMPRESSION: NO ACUTE RADIOGRAPHIC FINDING IN THE CHEST. TECHNICAL DOCUMENTATION: JOB ID: [id number] [employer]- All Rights Reserved
[2017-09-08 13:28] LABS: ABSOLUTE EOSINOPHILS # (AUTO) 0.2 10^3/uL (0.0-0.6); ABSOLUTE MONOCYTES (AUTO) 0.5 10^3/uL (0.1-1.4); ABSOLUTE NEUT (AUTO) 3.9 10^3/uL (1.7-8.2); BASOPHILS % (AUTO) 0.6 % (0-2); EOSINOPHILS % (AUTO) 3.7 % (0-6); HEMATOCRIT 37.8 % (36.0-47.0); HEMOGLOBIN 12.3 g/dL (12.0-15.5); HGB HCT DIFFERENCE -0.9; LYMPHOCYTES % (AUTO) 30.2 % (13-45); MEAN CORPUSCULAR HGB CONC 32.4 g/dL (32.0-36.0); MEAN CORPUSCULAR VOLUME 90 fl (80-97); MONOCYTES % (AUTO) 7.3 % (3-13); RED BLOOD COUNT 4.22 10^6/uL (3.72-5.28); RED CELL DISTRIBUTION WIDTH 17.4 % (11.5-14.0); SEGMENTED NEUTROPHILS % (AUTO) 58.2 % (42-78); WHITE BLOOD COUNT 6.7 10^3/uL (4.0-10.5)
[2017-09-08 13:45] LABS: ALANINE AMINOTRANSFERASE 27 U/L (9-52); ALBUMIN 3.2 g/dL (3.5-5.0); ALKALINE PHOSPHATASE 186 U/L (38-126); ANION GAP 12 (5-19); ASPARTATE AMINO TRANSFERASE 28 U/L (14-36); BILIRUBIN,DIRECT 0.3 mg/dL (0.0-0.4); BILIRUBIN,TOTAL 0.7 mg/dL (0.2-1.3); BLOOD UREA NITROGEN 23 mg/dL (7-20); CALCIUM 8.9 mg/dL (8.4-10.2); CARBON DIOXIDE 27 mmol/L (22-30); CHLORIDE 115 mmol/L (98-107); CREATINE KINASE 173 U/L (30-135); CREATININE RESULT 0.74 mg/dL (0.52-1.25); GLUCOSE 91 mg/dL (75-110); POTASSIUM 4.3 mmol/L (3.6-5.0); SODIUM 154.2 mmol/L (137-145); TOTAL PROTEIN 6.4 g/dL (6.3-8.2)
[2017-09-08 13:56] LABS: CREATINE KINASE MB 1.28 ng/mL (<4.55)
[2017-09-08 13:57] LABS: TROPONIN I < 0.012 ng/mL
[2017-09-08 14:00] VITALS: BP 107/70
--- NOTE | 2017-09-08 14:01 | ER Document Report ---
ED General - General Chief Complaint: Shortness Of Breath Stated Complaint: SHORTNESS OF BREATH Time Seen by Provider: 09/08/17 12:40 Mode of Arrival: Medic Information source: Emergency Med Personnel Cannot obtain history due to: Dementia TRAVEL OUTSIDE OF THE [place] IN LAST 30 DAYS: No - Related Data Allergies/Adverse Reactions: No Known Allergies Allergy (Verified 06/11/17 19:20) Past Medical History - Social History Smoking Status: Former Smoker Chew tobacco use (# tins/day): No Frequency of alcohol use: hx of alcohol abuse Drug Abuse: None Family History: None, Reviewed & Not Pertinent Patient has suicidal ideation: No Patient has homicidal ideation: No - Past Medical History Cardiac Medical History: Reports: Hx Hypertension Pulmonary Medical History: Reports: Hx COPD Neurological Medical History: Denies: Hx Seizures Renal/ Medical History: Denies: Hx Peritoneal Dialysis Musculoskeltal Medical History: Reports Hx Arthritis - OA Psychiatric Medical History: Reports: Hx Bipolar Disorder, Hx Dementia Denies: Hx Depression Past Surgical History: Reports: Hx Abdominal Surgery - PEG tube. Denies: Hx Hysterectomy - Immunizations Immunizations up to date: Yes Hx Diphtheria, Pertussis, Tetanus Vaccination: No Hx Pneumococcal Vaccination: 01/21/14 Review of Systems - Review of Systems Notes: REVIEW OF SYSTEMS: Per transport facility CONSTITUTIONAL : Denies fever, chills, or sweats. Denies recent illness. EENT: Denies eye, ear, throat, or mouth pain or symptoms. Denies nasal or sinus congestion or discharge. Denies throat, tongue, or mouth swelling or difficulty swallowing. CARDIOVASCULAR: Denies chest pain. Denies palpitations or racing or irregular heart beat. Denies ankle edema. RESPIRATORY: Admits to cough GASTROINTESTINAL: Denies abdominal pain or distention. Denies nausea, vomiting , or diarrhea. Denies blood in vomitus, stools, or per rectum. Denies black, tarry stools. Denies constipation. GENITOURINARY: Denies difficulty urinating, painful urination, burning, frequency, blood in urine, or discharge. FEMALE GENITOURINARY: Denies vaginal bleeding, heavy or abnormal periods, irregular periods. Denies vaginal discharge or odor. MUSCULOSKELETAL: Denies back or neck pain or stiffness. Denies joint pain or swelling. SKIN: Denies rash, lesions or sores. HEMATOLOGIC : Denies easy bruising or bleeding. LYMPHATIC: Denies swollen, enlarged glands. NEUROLOGICAL: Denies confusion or altered mental status. Denies passing out or loss of consciousness. Denies dizziness or lightheadedness. Denies headache. Denies weakness or paralysis or loss of use of either side. Denies problems with gait or speech. Denies sensory loss, numbness, or tingling. Denies seizures. PSYCHIATRIC: Denies anxiety or stress. Denies depression, suicidal ideation, or homicidal ideation. ALL OTHER SYSTEMS REVIEWED AND NEGATIVE. PHYSICAL EXAMINATION: GENERAL: Chronically demented female HEAD: Atraumatic, normocephalic. EYES: Pupils equal round and reactive to light, extraocular movements intact, conjunctiva are normal. ENT: Nares patent, oropharynx clear without exudates. Moist mucous membranes. NECK: Normal range of motion, supple without lymphadenopathy LUNGS: Faint expiratory wheezing bilateral HEART: Regular rate and rhythm without murmurs ABDOMEN: Soft, nontender, nondistended abdomen. No guarding, no rebound. No masses appreciated. Female : deferred Musculoskeletal: Patient does move her arms intermittently NEUROLOGICAL: Not oriented to person place or time when stating her name she will moan this is reported as her baseline SKIN: Warm, Dry, normal turgor, no rashes or lesions noted. Dictation was performed using [employer] voice recognition software Physical Exam - Vital signs Vitals: Temp Pulse Ox 97.8 F 100 09/08/17 12:40 09/08/17 12:40 Course - Re-evaluation Re-evalutation: 09/08/17 16:53 Patient is obviously very poor historian, however her presentation appears to be chronic in nature based on what is reported from transport X-ray lab work noted no significant abnormality, patient appears stable for discharge as I do not believe there is any life-threatening issues, patient's baseline mentation appears to be poor There was concern that the patient was satting 75% on room air and was immediately placed on oxygen, I did take the oxygen off and watched her and she continuously satted 94-95% while in the emergency department After performing a Medical Screening Examination, I estimate there is LOW risk for ACUTE CORONARY SYNDROME, PULMONARY EMBOLI, RESPIRATORY FAILURE, SEPSIS OR MENINGITIS, thus I consider the discharge disposition reasonable. I have reevaluated this patient multiple times and no significant life threatening changes are noted. I am unable to fully discuss with this patient my concerns however it is noted on discharge paperwork and care facility will send the patient back if there are any other concerns especially fever or respiratory distress - Vital Signs Vital signs: Temp Pulse Resp BP Pulse Ox 97.8 F 21 H 107/70 95 09/08/17 12:40 09/08/17 13:46 09/08/17 13:46 09/08/17 13:46 - Laboratory Result Diagrams: 09/08/17 13:14 09/08/17 13:14 Laboratory results interpreted by me: 09/08/17 09/08/17 13:14 13:14 RDW 17.4 H Plt Count 144 L Sodium 154.2 H Chloride 115 H BUN 23 H Alkaline Phosphatase 186 H Creatine Kinase 173 H Albumin 3.2 L - Diagnostic Test Radiology reviewed: Image reviewed, Reports reviewed Discharge - Discharge Clinical Impression: Wheezing, Hypernatremia Condition: Stable Disposition: HOME, SELF-CARE Additional Instructions: Follow up with your physician tomorrow for further care or return to the ED IMMEDIATELY if symptoms worsen or new concerns occur. If you cannot afford to follow up with your primary care physician a list of low cost clinics have been provided at the end of your discharge papers as well.
--- NOTE | 2017-09-08 14:02 | EKG REPORT ---
SEVERITY:- ABNORMAL ECG - SINUS RHYTHM PROBABLE LEFT ATRIAL ABNORMALITY LEFT ANTERIOR FASCICULAR BLOCK ABNORMAL T, CONSIDER ISCHEMIA, ANTERIOR LEADS : Confirmed by: Jessica Wagoner 08-Sep-2017 14:01:12
== END 2017-09-08 15:15 | disposition home or self-care (01) ==
LOC: ER 12:16
DX: R06.2 Wheezing (principal); E87.0 Hyperosmolality and hypernatremia; R06.02 Shortness of breath; F03.90 Unspecified dementia, unspecified severity, without behavioral disturbance, psychotic disturbance, mood disturbance, and anxiety; I10 Essential (primary) hypertension; Z87.891 Personal history of nicotine dependence
CPT/HCPCS: 36415; 71010; 80053; 82550; 82553; 83880; 84484; 85025; 87040; 87077; 87186; 93005; 93010; 99285

== ENCOUNTER 2017-12-01 20:35 | Inpatient (IN) | payer MEDICARE, MEDICAID ==
[2017-12-01] MEDS ORDERED: KETAMINE HCL INJ 500 MG/10 ML VIAL ONE ×2 (20:36→21:05)
[2017-12-01] MEDS ORDERED: CEFEPIME 2 GM/D5W RTU 2 GM/50 ML RTUPB IV ONE ×2 (20:51→21:11)
[2017-12-01] MEDS ORDERED: VANCOMYCIN HCL INJ 1000 MG VIAL ONE (20:52)
[2017-12-01] MEDS ORDERED: ROCURONIUM BROMIDE INJ 50 MG/5 ML VIAL IV ONE ×2 (21:00→21:12)
[2017-12-01] MEDS ORDERED: KETAMINE HCL INJ 500 MG/10 ML VIAL IV ONE (21:11)
[2017-12-01] MEDS ORDERED: VANCOMYCIN HCL INJ 1000 MG VIAL IV ONE (21:11)
[2017-12-01] MEDS ORDERED: RINGERS SOLUTION,LACTATED 2,000 ML IV ONE (21:11)
[2017-12-01] MEDS ORDERED: METRONIDAZOLE 500 MG/NS RTU 100 ML IV ONE (21:12)
[2017-12-01] MEDS ORDERED: FENTANYL CITRATE INJ/PF 100 MCG/2 ML AMPUL IV PRN (21:12)
--- NOTE | 2017-12-01 21:17 | ER Document Report ---
ED General - General Chief Complaint: Respiratory Distress Stated Complaint: RESPIRATORY DISTRESS Time Seen by Provider: 12/01/17 21:10 Cannot obtain history due to: Dementia, Unstable vital signs Notes: Patient presents from [facility] with shallow respirations, unresponsive. No additional history can be obtained. Patient is critically ill at time of arrival. Profoundly demented at baseline. TRAVEL OUTSIDE OF THE [place] IN LAST 30 DAYS: No - Related Data Allergies/Adverse Reactions: No Known Allergies Allergy (Verified 06/11/17 19:20) Past Medical History - General Information source: Transfer Record, Emergency Med Personnel, OM Records Cannot obtain history due to: Dementia, Unstable vital signs - Social History Smoking Status: Unknown if Ever Smoked Lives with: [facility] Family History: Reviewed & Not Pertinent - Past Medical History Cardiac Medical History: Reports: Hx Hypertension Pulmonary Medical History: Reports: Hx COPD Neurological Medical History: Denies: Hx Seizures Renal/ Medical History: Denies: Hx Peritoneal Dialysis Musculoskeltal Medical History: Reports Hx Arthritis - OA Psychiatric Medical History: Reports: Hx Bipolar Disorder, Hx Dementia Denies: Hx Depression Past Surgical History: Reports: Hx Abdominal Surgery - PEG tube. Denies: Hx Hysterectomy - Immunizations Immunizations up to date: Yes Hx Diphtheria, Pertussis, Tetanus Vaccination: No Hx Pneumococcal Vaccination: 01/21/14 Review of Systems - Review of Systems -: Yes ROS unobtainable due to patient's medical condition Physical Exam - Vital signs Vitals: Resp 60 H 12/01/17 20:45 Interpretation: Hypotensive, Hypoxic, Tachypneic Notes: PHYSICAL EXAMINATION: GENERAL: Frail, chronically ill in appearance, obtunded HEAD: Atraumatic, normocephalic. EYES: Pupils 3 mm, sluggishly reactive bilaterally ENT: Copious oral secretions. NECK: Supple without lymphadenopathy LUNGS: Tachypnea, shallow respirations, rhonchorous breath sounds throughout. HEART: Regular rate and rhythm, systolic ejection murmur is present ABDOMEN: Soft, No guarding, no rebound. No masses appreciated. EXTREMITIES: no pitting or edema. No cyanosis. NEUROLOGICAL: GCS 3 PSYCH: Obtunded SKIN: There is a pressure ulcer to the right lateral thigh Course - Re-evaluation Re-evalutation: 12/01/17 21:15 Documentation is delayed as I was at the patient's bedside likely participating in care for greater than 30 minutes prior to documentation. Patient presents in critical condition, no history available other than that patient was found to be hypoxic, hypotensive and febrile. Despite the fact that the patient is demented, nonverbal, nonambulatory, unable to take oral intake and is dependent on a G-tube, incontinent of urine and stool at baseline her family has made her full code. In the context of family wanting all things to be done despite the likely futile nature of these interventions, I did proceed with aggressive care. Patient was intubated upon arrival. First-pass attempt was successful. No period of delayed hypoxia. Patient required norepinephrine infusion to a peripheral line prior to initiation of intubation as her initial pressure at arrival was 44 on palp. Norepinephrine was initiated at 12 and patient's blood pressure came up into the 80s systolic. After intubation, I moved to place a central line in the right internal jugular vein. This was able to be completed without difficulty. Chest x-ray does confirm ET tube position as well as central line position. No evidence of a pneumothorax. Medications have been transitioned to the central line. Patient has been started on broad-spectrum antibiotics specifically to cover for aspiration pneumonia as apparently family feeds the patient by mouth despite her having severe dysphagia. Patient has been started on cefepime, vancomycin and Flagyl. 2 L of IV fluids have been initiated wide open through the central line. Vaginal Dave 50 mcg every 30 minutes as needed will be used for sedation although I believe patient will not require significant sedation as she was obtunded, GCS of 3 at time of arrival. Will continue to reassess the patient frequently. 12/01/17 21:25 Patient continues to be profoundly hypoxic at 81% intubated despite a PEEP of 16 and FiO2 100%. Her norepinephrine has been up titrated to 20 to keep her map above 65. Fluids are open wide. Antibiotics are infusing. Family called from out of town, refused to answer whether or not they wanted the patient to receive chest compressions if she does code. They are in agreement with continuing everything that we are doing thus far. 12/01/17 22:12 Patient's blood pressure has dramatically improved, norepinephrine has been able to wean down to 16 and her current blood pressure is 138 on 81. Will continue down titrate. She is now saturating 100% so I will begin to down titrate her FiO2 and PEEP. 12/01/17 22:45 Patient ventilator settings have been able to be down titrated to a PEEP of 12, FiO2 of 60% and she remains at 100%. I will continue to down titrate the settings. Her norepinephrine has been able to titrate down to 10. Patient's labs have returned and showed market elevation of sodium at 176. This should not be occurring if the facility is doing appropriate free water flushes with her tube feeds as she is PEG tube dependent. An APS report will be made regarding this concern. 12/01/17 23:01 I have been able to wean the patient's FiO2 down to 40%, PEEP down to 10 she continues to mean saturations above 92% with these settings. I have informed the family at the bedside about the patient's hypernatremia and her overall clinical status at this point. They would like to continue doing everything at this point. Patient is overall clinically improving with her interventions. I have discussed this case with the admitting hospitalist for ICU admission. She has accepted. - Vital Signs Vital signs: Temp Pulse Resp BP Pulse Ox 99.5 F 14 89/64 L 99 12/02/17 02:06 12/02/17 02:06 12/02/17 02:06 12/02/17 03:01 - Laboratory Result Diagrams: 12/01/17 22:00 12/01/17 23:48 Laboratory results interpreted by me: 12/01/17 12/01/17 12/01/17 21:47 22:00 22:00 WBC 10.7 H MCHC 30.3 L RDW 18.6 H Plt Count 92 L VBG pH 7.27 L Sodium Potassium Chloride BUN Creatinine Est GFR ( Amer) Est GFR (Non-Af Amer) Glucose Lactic Acid AST ALT Alkaline Phosphatase Total Protein Albumin Urine Protein 100 H Urine Ketones TRACE H Urine Blood MODERATE H Urine Bilirubin SMALL H Urine Urobilinogen 4.0 H Ur Leukocyte Esterase SMALL H Urine Ascorbic Acid 40 H 12/01/17 12/01/17 22:00 22:00 WBC MCHC RDW Plt Count VBG pH Sodium 176.6 H* Potassium 5.5 H Chloride 138 H BUN 106 H Creatinine 3.95 H Est GFR ( Amer) 13 L Est GFR (Non-Af Amer) 11 L Glucose 112 H Lactic Acid 2.6 H AST 139 H ALT 75 H Alkaline Phosphatase 198 H Total Protein 5.6 L Albumin 2.8 L Urine Protein Urine Ketones Urine Blood Urine Bilirubin Urine Urobilinogen Ur Leukocyte Esterase Urine Ascorbic Acid - Diagnostic Test Radiology reviewed: Image reviewed, Reports reviewed Radiology results interpreted by me: 12/01/17 22:13 Chest x-ray: Left lower lobe pneumonia, ET tube and central line in appropriate position Procedures - Central Line Right Internal jugular Consent obtained: No - Emergent Central line pre-insertion: Sterile PPE donned, Chloraprep applied, Sterile drapes applied Central line lumen type: Triple Ultrasound guided: Yes CM at insertion site: 20 Line secured with sutures: Yes Central line post-insertion: Blood return from lumens, Biopatch applied, Sutured , Sterile dressing applied, Position confirmed w/ CXR Number of attempts: 1 Complications: No - Intubation Orotracheal Airway evaluation: Copious secretions Mallampati Classification: Class 2 Medications: Ketamine, Other - Rocuronium Intubation method: Orotracheal Blade type: Arlene Blade size: 4 ETT size: 7.0 ETT secured at: Gums ETT secured at (cm): 22 Breath Sounds after Intubation: Equal End tidal CO2 confirmed: Yes Ventilator settings: SIMV Tidal volume: 400 FiO2: 100 Respirations: 16 PEEP: 10 Post Intubation Xray: Yes Intubation Complications: No complications Critical Care Note - Critical Care Note Total time excluding time spent on procedures (mins): 95 Comments: Critical care time spent obtaining history from patient or surrogate, discussions with consultants, development of treatment plan with patient or surrogate, evaluation of patient's response to treatment, examination of patient , ordering and performing treatments and interventions, ordering and review of laboratory studies, re-evaluation of patient's condition, ordering and review of radiographic studies and review of old charts Discharge - Discharge Clinical Impression: Septic shock, Pyelonephritis, Hypernatremia, Prerenal azotemia, Advanced dementia Left lower lobe pneumonia Qualifiers: Pneumonia type: due to unspecified organism Qualified Code(s): J18.1 - Lobar pneumonia, unspecified organism Acute renal failure Qualifiers: Acute renal failure type: unspecified Qualified Code(s): N17.9 - Acute kidney failure, unspecified Condition: Critical Disposition: ADMITTED INPATIENT Admitting Provider: Hospitalist - [place] [facility] Admitted: ICU
--- NOTE | 2017-12-01 21:34 | RADIOLOGY REPORT (SQ) ---
EXAM DESCRIPTION: CHEST SINGLE VIEW COMPLETED DATE/TIME: 12/01/2017 9:17 pm REASON FOR STUDY: post intubation, line, eval pneumonia COMPARISON: None. EXAM PARAMETERS: NUMBER OF VIEWS: One view. TECHNIQUE: Single frontal radiographic view of the chest acquired. RADIATION DOSE: NA LIMITATIONS: None. FINDINGS: LUNGS AND PLEURA: Segmental airspace disease in the left lower lobe. Small pleural effusi on. No pneumothorax. MEDIASTINUM AND HILAR STRUCTURES: No masses. Contour normal. HEART AND VASCULAR STRUCTURES: Heart normal in size. Normal vasculature. BONES: No acute findings. HARDWARE: None in the chest. OTHER: Right-sided central line tip overlying SVC. Endotracheal tube tip between thoracic inlet and shorty. Nasogastric tube extends in the left upper quadrant. IMPRESSION: Left lower lobe pneumonia status post intubation. No pneumothorax. TECHNICAL DOCUMENTATION: JOB ID: [id number] [employer]- All Rights Reserved
[2017-12-01 22:12] LABS: VENOUS BLOOD BASE EXCESS -3.1 mmol/L; VENOUS BLOOD HCO3 24.4 mmol/L (20-32); VENOUS BLOOD PCO2 54.3 mmHg (35-63); VENOUS BLOOD PH 7.27 (7.30-7.42)
[2017-12-01 22:14] LABS: AMORPHOUS SEDIMENT,URINE TRACE /HPF; APPEARANCE,URINE CLOUDY; BILIRUBIN,URINE SMALL (NEGATIVE); COLOR,URINE AMBER; GLUCOSE, URINE NEGATIVE (NEGATIVE); KETONES,URINE TRACE mg/dL (NEGATIVE); LEUKOCYTE ESTERASE,URINE SMALL (NEGATIVE); NITRITE,URINE NEGATIVE (NEGATIVE); PROTEIN,URINE 100 mg/dL (NEGATIVE); URINE SPECIFIC GRAVITY 1.023
[2017-12-01 22:26] LABS: ALANINE AMINOTRANSFERASE 75 U/L (9-52); ALBUMIN 2.8 g/dL (3.5-5.0); ALKALINE PHOSPHATASE 198 U/L (38-126); ANION GAP 14 (5-19); ASPARTATE AMINO TRANSFERASE 139 U/L (14-36); BILIRUBIN,DIRECT 0.2 mg/dL (0.0-0.4); BILIRUBIN,TOTAL 0.4 mg/dL (0.2-1.3); BLOOD UREA NITROGEN 106 mg/dL (7-20); CALCIUM 8.5 mg/dL (8.4-10.2); CARBON DIOXIDE 25 mmol/L (22-30); CHLORIDE 138 mmol/L (98-107); GLUCOSE 112 mg/dL (75-110); POTASSIUM 5.5 mmol/L (3.6-5.0); TOTAL PROTEIN 5.6 g/dL (6.3-8.2)
[2017-12-01 22:27] LABS: ABSOLUTE LYMPHOCYTES (AUTO) 1.6 10^3/uL (0.5-4.7); BASOPHILS % (AUTO) 0.2 % (0-2); EOSINOPHILS % (AUTO) 0.4 % (0-6); HEMATOCRIT 41.7 % (36.0-47.0); HEMOGLOBIN 12.7 g/dL (12.0-15.5); LYMPHOCYTES % (AUTO) 15.3 % (13-45); MEAN CORPUSCULAR HEMOGLOBIN 29.4 pg (27.0-33.4); MEAN CORPUSCULAR HGB CONC 30.3 g/dL (32.0-36.0); MEAN CORPUSCULAR VOLUME 97 fl (80-97); MONOCYTES % (AUTO) 9.2 % (3-13); RED BLOOD COUNT 4.31 10^6/uL (3.72-5.28); RED CELL DISTRIBUTION WIDTH 18.6 % (11.5-14.0); SEGMENTED NEUTROPHILS % (AUTO) 74.9 % (42-78); TOTAL CELLS COUNTED % (AUTO) 100 %; WHITE BLOOD COUNT 10.7 10^3/uL (4.0-10.5)
[2017-12-01 22:32] LABS: SODIUM 176.6 mmol/L (137-145)
[2017-12-01 22:43] LABS: ANISOCYTOSIS 1+; HYPOCHROMASIA SLIGHT; OVALOCYTES SLIGHT; PLATELET COMMENT DECREASED; POIKILOCYTOSIS SLIGHT; TARGET CELLS SLIGHT
[2017-12-01] MEDS ORDERED: RINGERS SOLUTION,LACTATED 1,000 ML IV ONE (22:44)
[2017-12-01 22:45] LABS: PLATELET COUNT 92 10^3/uL (150-450)
[2017-12-01] MEDS ORDERED: DEXTROSE 5%-WATER 1000 ML 1,000 ML IV PRN (23:36)
[2017-12-01] MEDS ORDERED: GLUCAGON,HUMAN RECOMB 1 MG INJ IM PRN ×2 (23:36→23:37)
[2017-12-01] MEDS ORDERED: DEXTROSE 50%-WATER 25 GM/50 ML DISP.SYRIN IV PRN ×4 (23:36→23:37)
[2017-12-01] MEDS ORDERED: DEXTROSE 40% GEL 15 GM TUBE PO PRN ×4 (23:36→23:37)
[2017-12-01] MEDS ORDERED: INSULIN LISPRO 100 UNIT/ML 3 ML VIAL SUBCUT PRN (23:37)
[2017-12-01] MEDS ORDERED: NOREPINEPHRINE BITARTRATE INJ/PF 4 MG/4 ML SDV IV ONE (23:38)
[2017-12-01] MEDS ORDERED: VANCOMYCIN HCL 0 MG in DEXTROSE 5%-WATER 250 ML IV NR (23:45)
[2017-12-01] MEDS ORDERED: DEXTROSE 5%-WATER 250 ML with NOREPINEPHRINE BITARTRATE 4 MG IV PRN ×2 (23:49)
[2017-12-02] MEDS ORDERED: PIPERACILLIN/TAZOBACTAM 3.375 GM VIAL IV PRN
[2017-12-02 00:25] LABS: ANION GAP 12 (5-19); BLOOD UREA NITROGEN 87 mg/dL (7-20); CALCIUM 8.1 mg/dL (8.4-10.2); CARBON DIOXIDE 22 mmol/L (22-30); CHLORIDE 134 mmol/L (98-107); GLUCOSE 170 mg/dL (75-110); SODIUM 168.2 mmol/L (137-145)
[2017-12-02 00:35] LABS: POTASSIUM 4.3 mmol/L (3.6-5.0)
[2017-12-02] MEDS ORDERED: NOREPINEPHRINE BITARTRATE INJ/PF 4 MG/4 ML SDV IV ONE ×3 (01:14→08:47)
[2017-12-02] MEDS ORDERED: DEXTROSE 5%-WATER 1000 ML 1,000 ML IV PRN (02:04)
[2017-12-02] MEDS ORDERED: FENTANYL CITRATE INJ/PF 100 MCG/2 ML AMPUL ONE (03:02)
[2017-12-02] MEDS ORDERED: DOPAMINE HCL/DEXTROSE 5%-WATER 800 MG/250 ML RTUINJ IV ONE (03:10)
[2017-12-02] MEDS ORDERED: DOPAMINE HCL/DEXTROSE 5%-WATER 800 MG/250 ML RTUINJ IV PRN (03:21)
[2017-12-02] MEDS ORDERED: RINGERS SOLUTION,LACTATED 1,000 ML IV PRN ×2 (03:22→05:59)
[2017-12-02] MEDS ORDERED: NORMAL SALINE 1000 ML 1,000 ML IV PRN (04:09)
[2017-12-02] MEDS ORDERED: HYDROCORTISONE SOD SUCCINATE INJ/PF 100 MG/2 ML SDV IV ONE (04:10)
[2017-12-02] MEDS ORDERED: 1/2 NORMAL SALINE 500 ML IV PRN (05:08)
[2017-12-02] MEDS ORDERED: DEXTROSE 5%-WATER 250 ML with VASOPRESSIN 100 UNIT IV PRN ×2 (05:09)
[2017-12-02] MEDS ORDERED: VASOPRESSIN INJ 20 UNIT/1 ML VIAL ONE (05:40)
[2017-12-02] MEDS ORDERED: NORMAL SALINE INJ/PF 0.9% 10 ML SDV IV PRN (05:53)
[2017-12-02 06:44] LABS: HEMATOCRIT 38.8 % (36.0-47.0); HEMOGLOBIN 11.7 g/dL (12.0-15.5); MEAN CORPUSCULAR HEMOGLOBIN 29.5 pg (27.0-33.4); MEAN CORPUSCULAR HGB CONC 30.1 g/dL (32.0-36.0); MEAN CORPUSCULAR VOLUME 98 fl (80-97); RED BLOOD COUNT 3.95 10^6/uL (3.72-5.28); RED CELL DISTRIBUTION WIDTH 18.4 % (11.5-14.0); WHITE BLOOD COUNT 9.3 10^3/uL (4.0-10.5)
[2017-12-02 06:49] LABS: ALANINE AMINOTRANSFERASE 69 U/L (9-52); ALBUMIN 2.5 g/dL (3.5-5.0); ALKALINE PHOSPHATASE 161 U/L (38-126); ANION GAP 11 (5-19); ASPARTATE AMINO TRANSFERASE 138 U/L (14-36); BILIRUBIN,DIRECT 0.6 mg/dL (0.0-0.4); BILIRUBIN,TOTAL 1.1 mg/dL (0.2-1.3); BLOOD UREA NITROGEN 83 mg/dL (7-20); CALCIUM 7.5 mg/dL (8.4-10.2); CARBON DIOXIDE 22 mmol/L (22-30); CHLORIDE 128 mmol/L (98-107); GLUCOSE 359 mg/dL (75-110); MAGNESIUM 2.2 mg/dL (1.6-2.3); SODIUM 160.7 mmol/L (137-145)
[2017-12-02 06:51] LABS: PLATELET COUNT 84 10^3/uL (150-450); POTASSIUM 5.3 mmol/L (3.6-5.0)
[2017-12-02 07:27] LABS: ABSOLUTE LYMPHOCYTES# (MANUAL) 1.5 10^3/uL (0.5-4.7); ABSOLUTE MONOCYTES # (MANUAL) 0.4 10^3/uL (0.1-1.4); ABSOLUTE NEUTROPHILS# (MANUAL) 7.4 10^3/uL (1.7-8.2); BAND NEUTROPHILS % (MANUAL) 10 % (3-5); BASOPHILS % (MANUAL) 0 % (0-2); EOSINOPHILS % (MANUAL) 0 % (0-6); LYMPHOCYTES % (MANUAL) 16 % (13-45); METAMYELOCYTES % (MANUAL) 1 % (0); MONOCYTES % (MANUAL) 4 % (3-13); NUCLEATED RED BLOOD CELLS 3 /100 WBC (0); SEGMENTED NEUTROPHILS % (MAN) 69 % (42-78); TOTAL CELLS COUNTED 100
[2017-12-02 07:30] LABS: ANISOCYTOSIS 2+; OVALOCYTES 1+; PLATELET COMMENT DECREASED; PLATELET LARGE PRESENT; POIKILOCYTOSIS 1+
--- NOTE | 2017-12-02 07:33 | RADIOLOGY REPORT (SQ) ---
EXAM DESCRIPTION: CHEST SINGLE VIEW CLINICAL HISTORY: 77 years, Female, ET tube placement COMPARISON: None. NUMBER OF VIEWS: 1 TECHNIQUE: AP portable semierect upright LIMITATIONS: None. FINDINGS: Large left pneumothorax with complete collapse of the left lung and mild right-sided mediastinal/cardiac shift. Adequate appearing endotracheal tube. Tip of a right jugular central line at the right atrium. IMPRESSION: Large left pneumothorax with complete collapse of the left lung.
[2017-12-02] MEDS ORDERED: LEVALBUTEROL HCL NEB 1.25 MG/3 ML AMPUL NEB SCH (08:00)
[2017-12-02] MEDS ORDERED: LORAZEPAM INJ 2 MG/1 ML VIAL IV PRN (08:06)
--- NOTE | 2017-12-02 08:57 | PDOC H&P ---
History of Present Illness Admission Date/PCP: 12/01/17 23:23 Patient complains of: Patient not doing well for the last several weeks History of Present Illness: URSULA RAMOS is a 77 year old female with a history of dementia and bed bound residing at [facility]. Patient presented with worsening mention. Patient was found to be hypernatremic. This has been a chronic problem for the patient. Patient was also found to be in acute renal failure with hyperkalemia. Patient also had a left sided pneumonia. Patient when into respiratory failure and was intubated and started on levophed for hypovolemia shock. Patient was started on vancomycin and zosyn for HCAP. Patient was started on dopamine after she became bradycardic and hypotensive. Patient had difficulty oxygenating on the vent. Patient was bagged for quite sometime. Patient vent settings were adjusted and patient started to stablize. Chest X ray was ordered. Patient was then started on vessopressin when she continued to be hypotensive. At this point patient's daughter changed her status to DNR. We were unable to obtain an ABG due to patient's poor pulse. Patient chest X ray shows a left sided pneumothorax. The was explained to the family who is leaning toward comfort measures. Past Medical History Cardiac Medical History: Reports: Hypertension Pulmonary Medical History: Reports: Chronic Obstructive Pulmonary Disease (COPD) Neurological Medical History: Denies: Seizures Musculoskeltal Medical History: Reports: Arthritis - OA Psychiatric Medical History: Reports: Bipolar Disorder, Dementia Denies: Depression Hematology: Reports: Anemia Past Surgical History Past Surgical History: Denies: Hysterectomy Social History Smoking Status: Unknown if Ever Smoked Frequency of Alcohol Use: None - Reported history of alcohol abuse per old records. Hx Recreational Drug Use: No Hx Prescription Drug Abuse: No Family History Family History: None, Other - unable to obtain due to patient's mental status. Parental Family History Reviewed: No Children Family History Reviewed: No Sibling(s) Family History Reviewed.: No Medication/Allergy Allergies/Adverse Reactions: No Known Allergies Allergy (Verified 06/11/17 19:20) Review of Systems ROS unobtainable: Due to endotracheal tube, Due to mental status Physical Exam Vital Signs: Temp Pulse Resp BP Pulse Ox 99.3 F 14 105/70 95 12/01/17 23:16 12/01/17 23:16 12/01/17 23:16 12/01/17 23:16 General appearance: PRESENT: mild distress Head exam: PRESENT: normocephalic Eye exam: PRESENT: other - scleral edeam. ABSENT: scleral icterus Mouth exam: PRESENT: other - ET tube in place tongue is coated Neck exam: ABSENT: carotid bruit, JVD, lymphadenopathy, thyromegaly Respiratory exam: PRESENT: decreased breath sounds. ABSENT: rales, rhonchi, wheezes Cardiovascular exam: PRESENT: RRR. ABSENT: diastolic murmur, rubs, systolic murmur GI/Abdominal exam: PRESENT: normal bowel sounds, soft, other - G tube in place. ABSENT: distended, guarding, mass, organolmegaly, rebound, tenderness Rectal exam: PRESENT: deferred Gentrourinary exam: PRESENT: indwelling catheter Extremities exam: PRESENT: full ROM. ABSENT: calf tenderness, clubbing, pedal edema Musculoskeletal exam: PRESENT: other - contracted Neurological exam: PRESENT: altered. ABSENT: motor sensory deficit Psychiatric exam: ABSENT: homicidal ideation, suicidal ideation Skin exam: PRESENT: dry, intact, warm. ABSENT: cyanosis, rash Results Laboratory Results: 12/01/17 12/01/17 12/02/17 21:47 22:00 06:13 WBC 9.3 RBC 3.95 Hgb 11.7 L Hct 38.8 MCV 98 H MCH 29.5 MCHC 30.1 L RDW 18.4 H Plt Count 84 L Total Counted 100 Seg Neuts % (Manual) 69 Band Neutrophils % 10 H Lymphocytes % (Manual) 16 Monocytes % (Manual) 4 Eosinophils % (Manual) 0 Basophils % (Manual) 0 Metamyelocytes % 1 H Abs Neuts (Manual) 7.4 Abs Lymphs (Manual) 1.5 Abs Monocytes (Manual) 0.4 Absolute Eos (Manual) 0.0 Abs Basophils (Manual) 0.0 Nucleated RBCs 3 Large Platelets PRESENT Platelet Comment DECREASED Poikilocytosis 1+ Anisocytosis 2+ Ovalocytes 1+ VBG pH 7.27 L VBG pCO2 54.3 VBG HCO3 24.4 VBG Base Excess -3.1 Sodium Potassium Chloride Carbon Dioxide Anion Gap BUN Creatinine Est GFR ( Amer) Est GFR (Non-Af Amer) Glucose Calcium Magnesium Total Bilirubin Direct Bilirubin AST ALT Alkaline Phosphatase Troponin I Total Protein Albumin Urine Color MARCOS Urine Appearance CLOUDY Urine pH 5.0 Ur Specific Dilliner 1.023 Urine Protein 100 H Urine Glucose (UA) NEGATIVE Urine Ketones TRACE H Urine Blood MODERATE H Urine Nitrite NEGATIVE Urine Bilirubin SMALL H Urine Urobilinogen 4.0 H Ur Leukocyte Esterase SMALL H Urine WBC (Auto) >182 Urine RBC (Auto) 14 U Hyaline Cast (Auto) 6 Urine Bacteria (Auto) 2+ Squamous Epi Cells Auto 5 U Non-Squamous Epis Auto 3 Amorphous Sediment Auto TRACE Urine Mucus (Auto) OCC Urine Ascorbic Acid 40 H 12/02/17 12/02/17 06:13 06:13 WBC RBC Hgb Hct MCV MCH MCHC RDW Plt Count Total Counted Seg Neuts % (Manual) Band Neutrophils % Lymphocytes % (Manual) Monocytes % (Manual) Eosinophils % (Manual) Basophils % (Manual) Metamyelocytes % Abs Neuts (Manual) Abs Lymphs (Manual) Abs Monocytes (Manual) Absolute Eos (Manual) Abs Basophils (Manual) Nucleated RBCs Large Platelets Platelet Comment Poikilocytosis Anisocytosis Ovalocytes VBG pH VBG pCO2 VBG HCO3 VBG Base Excess Sodium 160.7 H Potassium 5.3 H D Chloride 128 H Carbon Dioxide 22 Anion Gap 11 BUN 83 H Creatinine 2.99 H Est GFR ( Amer) 18 L Est GFR (Non-Af Amer) 15 L Glucose 359 H Calcium 7.5 L Magnesium 2.2 Total Bilirubin 1.1 Direct Bilirubin 0.6 H AST 138 H ALT 69 H Alkaline Phosphatase 161 H Troponin I 0.114 Total Protein 5.0 L Albumin 2.5 L Urine Color Urine Appearance Urine pH Ur Specific Dilliner Urine Protein Urine Glucose (UA) Urine Ketones Urine Blood Urine Nitrite Urine Bilirubin Urine Urobilinogen Ur Leukocyte Esterase Urine WBC (Auto) Urine RBC (Auto) U Hyaline Cast (Auto) Urine Bacteria (Auto) Squamous Epi Cells Auto U Non-Squamous Epis Auto Amorphous Sediment Auto Urine Mucus (Auto) Urine Ascorbic Acid Impressions: Chest X-Ray 12/01/17 21:12 IMPRESSION: Left lower lobe pneumonia status post intubation. No pneumothorax. Assessment & Plan - Diagnosis (1) Hypovolemic shock Is this a current diagnosis for this admission?: Yes Plan: Patient with hypotensive, hypernatremia, hyperchloremia and acute renal failure. Patient was given fluids and started on pressors. Patient not responding well. Patient requires more fluids however patient hypernatremia should be gradually corrected. Patient is currently on 3 pressors. (2) Left lower lobe pneumonia Qualifiers: Pneumonia type: due to unspecified organism Qualified Code(s): J18.1 - Lobar pneumonia, unspecified organism Is this a current diagnosis for this admission?: Yes Plan: Patient on vancomycin and zosyn for HCAP. (3) Pneumothorax Is this a current diagnosis for this admission?: Yes Plan: Patient with left sided pneumothorax. Patient family does not want a left sided chest tube. Family leading toward comfort measures. (4) Acute kidney failure Qualifiers: Acute renal failure type: unspecified Qualified Code(s): N17.9 - Acute kidney failure, unspecified Is this a current diagnosis for this admission?: Yes Plan: Due to hypovolemia shock. Patient on fluids and pressers. Patient having good urine outpatient. Creatinine is trending down. (5) Hyperkalemia Is this a current diagnosis for this admission?: Yes Plan: Due to acute renal failure. Patient given calcium gluconate, dextrose and insulin. (6) Hypernatremia Is this a current diagnosis for this admission?: Yes Plan: Secondary to dehydration. Patient hypernatremia is chronic and has has be corrected slowly. Will place on 1/2 NS. (7) Hyperchloremia Is this a current diagnosis for this admission?: Yes Plan: Due to dehydration. Patient on 1/2NS. (8) Thrombocythemia Is this a current diagnosis for this admission?: Yes Plan: Possible due to acute infection and or shock. Patient on SCD for DVT prophylaxis. (9) Advanced dementia Is this a current diagnosis for this admission?: Yes Plan: Patient bedbound with feeding tube. - Time Time Spent: Greater than 70 Minutes - Inpatient Certification Medical Necessity: Other - Patient is not doing well. This has been expressed to the family who is leaning toward comfort measures.
[2017-12-02] MEDS ORDERED: PIPERACILLIN SODIUM/TAZOBACTAM 3.375 GM in NORMAL SALINE 100 ML IV SCH ×3 (09:00)
[2017-12-02] MEDS ORDERED: PIPERACILLIN SODIUM/TAZOBACTAM 2.25 GM in NORMAL SALINE 100 ML IV SCH (09:00)
[2017-12-02] MEDS ORDERED: MORPHINE SULFATE 60 MG/60 ML RTUINJ IV PRN (09:04)
[2017-12-02] MEDS ORDERED: SCOPOLAMINE HYDROBROMIDE 1.5 MG PATCH.TD72 TD SCH (10:00)
[2017-12-02 11:47] VITALS: BP 39/12
--- NOTE | 2017-12-02 12:12 | PDOC PROGRESS REPORT ---
Subjective Progress Note for:: 12/02/17 Subjective:: Unable to obtain due to patient's mental status. Family to bedside and made aware about new findings of pneumothorax in the left side of her chest. Management explained and opted for patient to be on comfort care Review of systems Unable to obtain due to patient's mental status All significant laboratories and diagnostics have been reviewed Reason For Visit: PNEUMONIA, RESPIRATORY FAILURE Physical Exam Vital Signs: Temp Pulse Resp BP Pulse Ox 99.5 F 107 H 28 H 52/33 L 90 L 12/02/17 06:04 12/02/17 06:04 12/02/17 06:04 12/02/17 06:04 12/02/17 06:04 Intake & Output 12/01/17 12/02/17 12/03/17 06:59 06:59 06:59 Output Total 1000 Balance -1000 Weight 79.8 kg General appearance: PRESENT: morbidly obese Head exam: PRESENT: atraumatic, normocephalic Respiratory exam: PRESENT: crackles, decreased breath sounds, tachypnea. ABSENT : unlabored Cardiovascular exam: PRESENT: irregular rhythm. ABSENT: diastolic murmur, systolic murmur Vascular exam: PRESENT: normal capillary refill GI/Abdominal exam: PRESENT: normal bowel sounds, soft. ABSENT: tenderness Neurological exam: PRESENT: other - obtunded Results Laboratory Results: 12/02/17 06:13 12/02/17 06:13 12/01/17 12/02/17 12/02/17 23:48 01:48 06:13 WBC 9.3 RBC 3.95 Hgb 11.7 L Hct 38.8 MCV 98 H MCH 29.5 MCHC 30.1 L RDW 18.4 H Plt Count 84 L Seg Neutrophils % Not Reportable Lymphocytes % Not Reportable Monocytes % Not Reportable Eosinophils % Not Reportable Basophils % Not Reportable Absolute Neutrophils Not Reportable Absolute Lymphocytes Not Reportable Absolute Monocytes Not Reportable Absolute Eosinophils Not Reportable Absolute Basophils Not Reportable Sodium 168.2 H Potassium 4.3 D Chloride 134 H Carbon Dioxide 22 Anion Gap 12 BUN 87 H Creatinine 2.84 H Est GFR ( Amer) 19 L Est GFR (Non-Af Amer) 16 L Glucose 170 H Lactic Acid 2.0 Calcium 8.1 L Magnesium Total Bilirubin AST ALT Alkaline Phosphatase Total Protein Albumin 12/02/17 06:13 WBC RBC Hgb Hct MCV MCH MCHC RDW Plt Count Seg Neutrophils % Lymphocytes % Monocytes % Eosinophils % Basophils % Absolute Neutrophils Absolute Lymphocytes Absolute Monocytes Absolute Eosinophils Absolute Basophils Sodium 160.7 H Potassium 5.3 H D Chloride 128 H Carbon Dioxide 22 Anion Gap 11 BUN 83 H Creatinine 2.99 H Est GFR ( Amer) 18 L Est GFR (Non-Af Amer) 15 L Glucose 359 H Lactic Acid Calcium 7.5 L Magnesium 2.2 Total Bilirubin 1.1 AST 138 H ALT 69 H Alkaline Phosphatase 161 H Total Protein 5.0 L Albumin 2.5 L 12/02/17 06:13 Troponin I 0.114 Impressions: Chest X-Ray 12/02/17 00:00 IMPRESSION: Large left pneumothorax with complete collapse of the left lung. Assessment & Plan - Diagnosis (1) Acute kidney failure Qualifiers: Acute renal failure type: unspecified Qualified Code(s): N17.9 - Acute kidney failure, unspecified Is this a current diagnosis for this admission?: Yes Plan: Comfort measures (2) Hyperkalemia Is this a current diagnosis for this admission?: Yes Plan: Comfort measures (3) Hypernatremia Is this a current diagnosis for this admission?: Yes Plan: Comfort measures (4) Hypovolemic shock Is this a current diagnosis for this admission?: Yes (5) Left lower lobe pneumonia Qualifiers: Pneumonia type: due to unspecified organism Qualified Code(s): J18.1 - Lobar pneumonia, unspecified organism Is this a current diagnosis for this admission?: Yes Plan: Comfort measures (6) Pneumothorax Qualifiers: Encounter type: initial encounter Is this a current diagnosis for this admission?: Yes Plan: Comfort measures (7) Respiratory failure Qualifiers: Chronicity: acute Is this a current diagnosis for this admission?: Yes Plan: Patient to be extubated since comfort measures - Time Time Spent with patient: 25-34 minutes Medications reviewed and adjusted accordingly: Yes Anticipated discharge: Hospice - Inpatient Certification Based on my medical assessment, after consideration of the patient's comorbidities, presenting symptoms, or acuity I expect that the services needed warrant INPATIENT care.: Yes I certify that my determination is in accordance with my understanding of Medicare's requirements for reasonable and necessary INPATIENT services [42 CFR 412.3e].: Yes Medical Necessity: Need for Pain Control, Other - Require comfort measure, morphine drip
--- NOTE | 2017-12-02 13:18 | PDOC CONSULTATION ---
Consultation Consult Date: 12/02/17 Attending physician:: DELORIS MARTINEZ Consult reason:: pna/resp failure History of Present Illness Admission Date/PCP: 12/01/17 23:23 DELORIS MARTINEZ MD History of Present Illness: URSULA RAMOS is a 77 year old female with a history of dementia and bed bound residing at [facility]. Patient presented with worsening mention. Patient was found to be hyper-natremic. This has been a chronic problem for the patient. Patient was also found to be in acute renal failure with hyperkalemia. Patient also had a left sided pneumonia. Patient when into respiratory failure and was intubated and started on levophed for hypovolemia shock. Patient was started on vancomycin and zosyn for HCAP. Patient was started on dopamine after she became bradycardic and hypotensive. Patient had difficulty oxygenating on the vent. Patient was bagged for quite sometime. Patient vent settings were adjusted and patient started to stablize. Chest X ray was ordered. Patient was then started on vessopressin when she continued to be hypotensive. At this point patient's daughter changed her status to DNR. We were unable to obtain an ABG due to patient's poor pulse. Patient chest X ray shows a left sided pneumothorax. The was explained to the family who is leaning toward comfort measures. Past Medical History Cardiac Medical History: Reports: Hypertension Pulmonary Medical History: Reports: Chronic Obstructive Pulmonary Disease (COPD) Neurological Medical History: Denies: Seizures Musculoskeltal Medical History: Reports: Arthritis - OA Psychiatric Medical History: Reports: Bipolar Disorder, Dementia Denies: Depression Hematology: Reports: Anemia Past Surgical History Past Surgical History: Denies: Hysterectomy Social History Information Source: [facility] Records Lives with: Snf Smoking Status: Unknown if Ever Smoked Frequency of Alcohol Use: None - Reported history of alcohol abuse per old records. Hx Recreational Drug Use: No Drugs: None Hx Prescription Drug Abuse: No Family History Family History: Other - unable to obtain due to patient's mental status. Parental Family History Reviewed: No Children Family History Reviewed: No Sibling(s) Family History Reviewed.: No Medication/Allergy Allergies/Adverse Reactions: No Known Allergies Allergy (Verified 06/11/17 19:20) Review of Systems ROS unobtainable: Due to endotracheal tube, Due to mental status Physical Exam Vital Signs: Temp Pulse Resp BP Pulse Ox 100.0 F 116 H 16 105/69 99 12/02/17 08:00 12/02/17 08:58 12/02/17 08:00 12/02/17 08:00 12/02/17 08:00 Intake & Output 12/01/17 12/02/17 12/03/17 06:59 06:59 06:59 Output Total 1000 150 Balance -1000 -150 Weight 79.8 kg General appearance: PRESENT: no acute distress, disheveled, well-developed, well -nourished. ABSENT: cooperative, mild distress, morbidly obese, obese, severe distress Head exam: PRESENT: atraumatic, normocephalic Eye exam: PRESENT: conjunctiva pale. ABSENT: conjunctival injection, conjunctiva pink, EOMI, nystagmus, periorbital swelling, scleral icterus Mouth exam: PRESENT: dry mucosa, neck supple, tongue midline, other - ET tube. ABSENT: laceration, moist Neck exam: ABSENT: carotid bruit, JVD, lymphadenopathy, thyromegaly, tracheal deviation, tracheostomy Respiratory exam: PRESENT: decreased breath sounds, prolonged expiratory phas, rales, rhonchi, unlabored. ABSENT: retraction, stridor Cardiovascular exam: PRESENT: irregular rhythm Pulses: PRESENT: normal radial pulses GI/Abdominal exam: PRESENT: diminished bowel sounds, soft Extremities exam: ABSENT: clubbing Musculoskeletal exam: ABSENT: ambulatory, deformity, dislocation Neurological exam: ABSENT: alert, awake, oriented to person, oriented to place, oriented to time, oriented to situation Skin exam: PRESENT: dry, warm Results Laboratory Results: 12/02/17 06:13 12/02/17 06:13 12/01/17 12/02/17 12/02/17 23:48 01:48 06:13 WBC 9.3 RBC 3.95 Hgb 11.7 L Hct 38.8 MCV 98 H MCH 29.5 MCHC 30.1 L RDW 18.4 H Plt Count 84 L Seg Neutrophils % Not Reportable Lymphocytes % Not Reportable Monocytes % Not Reportable Eosinophils % Not Reportable Basophils % Not Reportable Absolute Neutrophils Not Reportable Absolute Lymphocytes Not Reportable Absolute Monocytes Not Reportable Absolute Eosinophils Not Reportable Absolute Basophils Not Reportable Sodium 168.2 H Potassium 4.3 D Chloride 134 H Carbon Dioxide 22 Anion Gap 12 BUN 87 H Creatinine 2.84 H Est GFR ( Amer) 19 L Est GFR (Non-Af Amer) 16 L Glucose 170 H Lactic Acid 2.0 Calcium 8.1 L Magnesium Total Bilirubin AST ALT Alkaline Phosphatase Total Protein Albumin 12/02/17 06:13 WBC RBC Hgb Hct MCV MCH MCHC RDW Plt Count Seg Neutrophils % Lymphocytes % Monocytes % Eosinophils % Basophils % Absolute Neutrophils Absolute Lymphocytes Absolute Monocytes Absolute Eosinophils Absolute Basophils Sodium 160.7 H Potassium 5.3 H D Chloride 128 H Carbon Dioxide 22 Anion Gap 11 BUN 83 H Creatinine 2.99 H Est GFR ( Amer) 18 L Est GFR (Non-Af Amer) 15 L Glucose 359 H Lactic Acid Calcium 7.5 L Magnesium 2.2 Total Bilirubin 1.1 AST 138 H ALT 69 H Alkaline Phosphatase 161 H Total Protein 5.0 L Albumin 2.5 L 12/02/17 06:13 Troponin I 0.114 Impressions: Chest X-Ray 12/02/17 00:00 IMPRESSION: Large left pneumothorax with complete collapse of the left lung. Assessment & Plan - Diagnosis (1) Acute kidney failure Qualifiers: Acute renal failure type: unspecified Qualified Code(s): N17.9 - Acute kidney failure, unspecified Is this a current diagnosis for this admission?: Yes (2) Hypernatremia Is this a current diagnosis for this admission?: Yes Plan: stable (3) Left lower lobe pneumonia Qualifiers: Pneumonia type: due to unspecified organism Qualified Code(s): J18.1 - Lobar pneumonia, unspecified organism Is this a current diagnosis for this admission?: Yes Plan: no + cultures (4) Respiratory failure Qualifiers: Chronicity: acute Is this a current diagnosis for this admission?: Yes (5) Advanced dementia Is this a current diagnosis for this admission?: Yes - Plan Summary Plan Summary: spoke with family;PCP and RN concur with plan comfort care
[2017-12-02] MEDS ORDERED: HYDROCORTISONE SOD SUCCINATE INJ/PF 100 MG/2 ML SDV IV SCH (14:00)
--- NOTE | 2017-12-02 17:19 | Death Summary ---
Summary Date : 12/02/17 Time of :: 15:05 Autopsy: No Resuscitation Status: Comfort Measures Only - Final Diagnosis (1) Left lower lobe pneumonia Is this a current diagnosis for this admission?: Yes (2) Septic shock Is this a current diagnosis for this admission?: Yes (3) Hypovolemic shock Is this a current diagnosis for this admission?: Yes (4) Acute kidney failure Is this a current diagnosis for this admission?: Yes (5) Hyperkalemia Is this a current diagnosis for this admission?: Yes (6) Hypernatremia Is this a current diagnosis for this admission?: Yes (7) Pneumothorax Is this a current diagnosis for this admission?: Yes (8) Respiratory failure Is this a current diagnosis for this admission?: Yes (9) Dementia Is this a current diagnosis for this admission?: Yes (10) Thrombocythemia Is this a current diagnosis for this admission?: Yes Hospital Course:: URSULA RAMOS is a 77 year old female with a history of dementia and bed bound residing at [facility]. Patient presented with worsening mental status. Patient was found to be hypernatremic. This had been a chronic problem for the patient. Patient was also found to be in acute renal failure with hyperkalemia. Patient also had a left sided pneumonia. Patient when into respiratory failure and was intubated and started on levophed for hypovolemic shock. Patient was started on vancomycin and zosyn for HCAP. Patient was started on dopamine after she became bradycardic and hypotensive. Patient had difficulty oxygenating on the vent. Patient was bagged for quite sometime. Patient vent settings were adjusted and patient started to stablize. Chest X ray was ordered. Patient was then started on vessopressin when she continued to be hypotensive. Patient's daughter changed her status to DNR. We were unable to obtain an ABG due to patient's poor pulse. Patient chest X ray shows a left sided pneumothorax. Patient by then had been admitted to intensive care unit. Family was made aware about the new finding of a pneumothorax and this caused treatment. At this point in time family opted for patient to be placed on comfort measures. As per protocol a second physician was involved that is Dr. Dent and patient was posteriorly intubated and placed on a morphine drip. Patient on December 02 at 1505. Family was at bedside. This certificate was signed with a consult with due to pneumonia, hypovolemic and septic shock, acute respiratory failure, pneumothorax as major contributors of her .
[2017-12-03] MEDS ORDERED: VANCOMYCIN HCL 1,000 MG in DEXTROSE 5%-WATER 250 ML IV SCH (22:00)
== END 2017-12-02 17:12 | disposition left against medical advice (07) | DRG 871 ==
LOC: ER 20:35 → EH 23:23 → ICU 12-02 05:21
PROVIDERS: ADMIT Pediatrics; ATTEND Pediatrics
PROC: 5A1935Z Respiratory Ventilation, Less than 24 Consecutive Hours (ICD-10-PCS; principal; 2017-12-01)
PROC: 0BH17EZ Insertion of Endotracheal Airway into Trachea, Via Natural or Artificial Opening (ICD-10-PCS; 2017-12-01)
PROC: 02HV33Z Insertion of Infusion Device into Superior Vena Cava, Percutaneous Approach (ICD-10-PCS; 2017-12-01)
DX: A41.9 Sepsis, unspecified organism (principal); J18.1 Lobar pneumonia, unspecified organism; R65.21 Severe sepsis with septic shock; J96.01 Acute respiratory failure with hypoxia; N17.9 Acute kidney failure, unspecified; E87.0 Hyperosmolality and hypernatremia; J93.9 Pneumothorax, unspecified; Z66 Do not resuscitate; R57.1 Hypovolemic shock; E87.5 Hyperkalemia; E87.8 Other disorders of electrolyte and fluid balance, not elsewhere classified; D69.6 Thrombocytopenia, unspecified; I10 Essential (primary) hypertension; J44.9 Chronic obstructive pulmonary disease, unspecified; M19.90 Unspecified osteoarthritis, unspecified site; R13.10 Dysphagia, unspecified; F03.90 Unspecified dementia, unspecified severity, without behavioral disturbance, psychotic disturbance, mood disturbance, and anxiety; Z93.1 Gastrostomy status
CPT/HCPCS: 36415; 71045; 80048; 80053; 81001; 82803; 82962; 83605; 83735; 84484; 85025; 87040; 87070; 87077; 87086; 87088; 87186; 87205; 94002; 94003; 96365; 96366; 96367; 96368; 99291; 99292; J0692; J2060; J2270; J2543; J3010; J3370; J3490; J7030; J7120